=== PATIENT | female | born 1945 | race Caucasian/White ===

== ENCOUNTER → 2017-06-07 | Outpatient (CLI) | payer MEDICARE, OTHER ==
[~2017-06-07] VITALS: Ht 168.9 cm; Wt 92.2 kg
[~2017-06-07] MED LIST: AMLO10TA2 PO; ATOR40TA70 PO; CLOP75TA69 PO; DICL100T PO; DOCU-143 PO; LEVO125T6 PO; MULT-35 PO; PARO30TA3 PO; RANI75TA21 PO; SENN25TA PO
[2017-06-07 10:19] VITALS: BP 114/76
[2017-06-07 10:55] LABS: BILIRUBIN,URINE NEGATIVE (NEGATIVE); KETONES,URINE NEGATIVE (NEGATIVE); LEUKOCYTE ESTERASE ,URINE NEGATIVE (NEGATIVE); NITRITE,URINE NEGATIVE (NEGATIVE); PH,URINE 6 (5-9); PROTEIN,URINE NEGATIVE (NEGATIVE); UROBILINOGEN,URINE NORMAL (NORMAL)
[2017-06-07 10:56] LABS: BASOPHILS % (AUTO) 1 % (0-10); EOSINOPHILS # (AUTO) 0.3 10^3/uL (0.0-0.3); EOSINOPHILS % (AUTO) 5 % (0-10); LYMPHOCYTES # (AUTO) 1.2 X 10^3 (1.0-4.0); LYMPHOCYTES % (AUTO) 25 % (12-44); MEAN CORPUSCULAR HEMOGLOBIN 26 PG (25-34); MEAN CORPUSCULAR HGB CONC 31 G/DL (32-36); MEAN CORPUSCULAR VOLUME 83 FL (80-99); MEAN PLATELET VOLUME 8.6 FL (7.4-10.4); MONOCYTES # (AUTO) 0.4 X 10^3 (0.0-1.0); MONOCYTES % (AUTO) 8 % (0-12); NEUTROPHILS # (AUTO) 2.9 X 10^3 (1.8-7.8); NEUTROPHILS % (AUTO) 61 % (42-75); PLATELET COUNT 294 10^3/uL (130-400); RED BLOOD COUNT 4.61 10^6/uL (4.35-5.85); RED CELL DISTRIBUTION WIDTH 14.4 % (10.0-14.5); WHITE BLOOD COUNT 4.8 10^3/uL (4.3-11.0)
[2017-06-07 11:20] LABS: ANION GAP 6 MMOL/L (5-14); BLOOD UREA NITROGEN 12 MG/DL (7-18); BUN/CREATININE RATIO 16; CALCIUM 9.5 MG/DL (8.5-10.1); CARBON DIOXIDE 29 MMOL/L (21-32); CHLORIDE 102 MMOL/L (98-107); CREATININE SERUM 0.76 MG/DL (0.60-1.30); GFR ESTIMATED > 60; GLUCOSE 93 MG/DL (70-105); INR 0.9 (0.8-1.4); POTASSIUM 4.2 MMOL/L (3.6-5.0); PROTHROMBIN TIME PATIENT 11.9 SEC (12.2-14.7); SODIUM 137 MMOL/L (135-145)
--- NOTE | 2017-06-07 14:21 | Diagnostic Imaging Report ---
INDICATION: Preop for right hip replacement. PA and lateral chest obtained at 11:35 a.m. Heart and mediastinal silhouette are normal in appearance. The lungs are clear. There is no pneumothorax or pleural fluid. IMPRESSION: Negative chest. Dictated by: Dictated on workstation # [id number]
== END ==
LOC: PREOP 09:51
PROVIDERS: ATTEND Orthopaedic Surgery
DX: Z01.812 Encounter for preprocedural laboratory examination (principal); Z01.810 Encounter for preprocedural cardiovascular examination; M16.11 Unilateral primary osteoarthritis, right hip
CPT/HCPCS: 36415; 71020; 80048; 81000; 85025; 85610; 86850; 86900; 86901; 87081; 93005

== ENCOUNTER 2017-06-26 09:56 | Inpatient (IN) | payer MEDICARE, OTHER ==
[~2017-06-26] VITALS: Ht 168.9 cm; Wt 92.2 kg
[2017-06-26] MEDS ORDERED: GENTAMICIN 40 MG/ML 2 ML INJ SDV ONE (10:48)
[2017-06-26] MEDS ORDERED: NEO/POLY/BAC (NEOSPORIN) OINT 15 GM TUBE ONE (10:49)
[2017-06-26] MEDS ORDERED: SUCCINYLCHOLINE INJ 100 MG/5 ML SYR ONE (10:57)
[2017-06-26] MEDS ORDERED: proPOfol 200 MG/20 ML (DIPRIVAN) VIAL IV ONE (10:57)
[2017-06-26] MEDS ORDERED: LIDOCAINE PF 2% 5 ML (XYLOCAINE) VIAL ONE (10:57)
[2017-06-26] MEDS ORDERED: LACTATED RINGERS 1,000 ML IV ONE ×3 (10:57→15:18)
[2017-06-26] MEDS ORDERED: ONDANSETRON 4 MG/2 ML (SDV) Z0FRAN ONE ×2 (10:57→14:57)
[2017-06-26] MEDS ORDERED: ROCURONIUM 50 MG/5 ML (ZEMURON) VIAL IV ONE (10:57)
[2017-06-26] MEDS ORDERED: fentaNYL INJECTION 100 MCG/2 ML AMP ONE ×2 (10:58→13:10)
[2017-06-26] MEDS ORDERED: MIDAZOLAM 2 MG/2 ML (VERSED) VIAL ONE (10:59)
[2017-06-26] MEDS ORDERED: ceFAZolin 2 GM/NS 50 ML IV ONE (11:00)
[2017-06-26] MEDS ORDERED: ROPIVACAINE 5MG/ML 30ML VIAL ONE (11:03)
[2017-06-26] MEDS: LACTATED RINGERS 1,000 ML IV PRN ×3 (11:05→15:26)
[2017-06-26] MEDS ORDERED: SCOPOLAMINE 1.5 MG (TRANSDERM-SCOP) PATCH ONE (11:32)
--- NOTE | 2017-06-26 11:32 | Progress Note-Pre Operative ---
Pre-Operative Progress Note H&P Reviewed The H&P was reviewed, patient examined and no changes noted. Date Seen by Provider: Jun 26, 2017 Time Seen by Provider: 11:20 Date H&P Reviewed: Jun 26, 2017 Time H&P Reviewed: :20 Pre-Operative Diagnosis: Avascular necrosis right femoral head KATALINA HAY DO Jun 26, 2017 11:32 am
[2017-06-26] MEDS ORDERED: FAMOTIDINE 20MG/2ML IV (PEPCID) IV ONE (11:45)
[2017-06-26] MEDS ORDERED: ONDANSETRON 4 MG/2 ML (SDV) Z0FRAN IV ONE (11:45)
[2017-06-26] MEDS ORDERED: SCOPOLAMINE 1.5 MG (TRANSDERM-SCOP) PATCH TOP ONE (11:45)
[2017-06-26] MEDS ORDERED: KETOROLAC 15 MG/ML VIAL IVP PRN (12:00)
[2017-06-26] MEDS ORDERED: BISACODYL 10 MG SUPP (DULCOLAX) PR PRN (12:00)
[2017-06-26] MEDS ORDERED: PROMETHAZINE INJ 25 MG/ML (PHENERGAN) AMP IVP PRN (12:00)
[2017-06-26] MEDS ORDERED: morphine INJ 10 MG/ML 1ML (SYR OR VIAL) IVP PRN (12:00)
[2017-06-26] MEDS ORDERED: diphenhydrAMINE 50 MG/ML INJ (BENADRYL) IV PRN (12:00)
[2017-06-26] MEDS ORDERED: ceFAZolin 2 GM/50 ML NS 50 ML IV SCH (12:00)
[2017-06-26] MEDS ORDERED: TRANEXAMIC ACID 100 MG/ML 10 ML INJECTION IV ONE (12:19)
[2017-06-26] MEDS ORDERED: SEVOFLURANE (ULTANE) 15 ML INHAL SOLN ONE ×3 (13:28→14:24)
[2017-06-26] MEDS ORDERED: morphine INJ 10 MG/ML 1ML (SYR OR VIAL) ONE (13:58)
[2017-06-26] MEDS ORDERED: HYDROmorphone (DILAUDID) 2 MG/ML VIAL ONE (14:35)
--- NOTE | 2017-06-26 14:35 | Progress Note-Post Operative ---
Post-Operative Progess Note Surgeon (s)/Senior Tax Specialist (s) Surgeon KATALINA HAY DO Senior Tax Specialist: Ham Avalos FEDERAL APPELLATE LAW CLERK-Nguyen Pre-Operative Diagnosis Avascular necrosis right femoral head Post-Operative Diagnosis same Procedure & Operative Findings Date of Procedure 06/26/17 Procedure Performed/Findings Right Total Hip Arthroplasty Anesthesia Type General with femoral nerve block Estimated Blood Loss Estimated blood loss (mL): 500 ml Specimens/Packing Specimens Removed femoral head not sent for pathology eval Packing: none KATALINA HAY DO Jun 26, 2017 2:35 pm
[2017-06-26] MEDS: HYDROmorphone (DILAUDID) 2 MG/ML VIAL IVP PRN ×2 (14:44→14:54)
[2017-06-26] MEDS ORDERED: ONDANSETRON 4 MG/2 ML (SDV) Z0FRAN IVP PRN (15:00)
[2017-06-26 16:13] VITALS: BP 154/67
[2017-06-26] MEDS: BACLOFEN 10 MG (LIORESAL) TAB PO SCH ×2 (17:54→20:45)
[2017-06-26] MEDS: D5 1/2 NS 1000 ML IV SOLUTION 1,000 ML IV SCH (18:43)
[2017-06-26] MEDS: ceFAZolin 2 GM/50 ML NS 50 ML IV SCH (18:45)
[2017-06-26] MEDS: HYDROcodone/APAP 10 MG/325 MG (LORTAB) TAB PO PRN (18:48)
--- NOTE | 2017-06-26 19:58 | Diagnostic Imaging Report ---
Portable supine AP view of the pelvis. Indication: Right total hip replacement. Findings: There is a right hip replacement in position. The left hip demonstrates moderate degenerative change. No fracture is seen. Impression: Baseline post right hip replacement in good position. Dictated by: Dictated on workstation # [id number]
[2017-06-26 20:00] VITALS: BP 133/68
[2017-06-26 23:20] VITALS: BP 129/73
[2017-06-27] MEDS: HYDROcodone/APAP 10 MG/325 MG (LORTAB) TAB PO PRN ×3 (00:07→15:15)
[2017-06-27] MEDS: ceFAZolin 2 GM/50 ML NS 50 ML IV SCH (03:35)
[2017-06-27 04:43] VITALS: BP 131/74
[2017-06-27] MEDS: ONDANSETRON 4 MG/2 ML (SDV) Z0FRAN IVP PRN ×2 (04:55→12:34)
[2017-06-27 05:51] LABS: MEAN PLATELET VOLUME 9.2 FL (7.4-10.4); RED BLOOD COUNT 3.81 10^6/uL (4.35-5.85); RED CELL DISTRIBUTION WIDTH 14.2 % (10.0-14.5); WHITE BLOOD COUNT 9.6 10^3/uL (4.3-11.0)
[2017-06-27] MEDS: LEVOTHYROXINE 125 MCG (LEVOTHROID) TABLET PO SCH (05:57)
[2017-06-27 06:51] LABS: ANION GAP 10 MMOL/L (5-14); BLOOD UREA NITROGEN 8 MG/DL (7-18); BUN/CREATININE RATIO 11; CALCIUM 8.4 MG/DL (8.5-10.1); CARBON DIOXIDE 24 MMOL/L (21-32); CHLORIDE 100 MMOL/L (98-107); CREATININE SERUM 0.74 MG/DL (0.60-1.30); GFR ESTIMATED > 60; GLUCOSE 128 MG/DL (70-105); POTASSIUM 3.3 MMOL/L (3.6-5.0); SODIUM 134 MMOL/L (135-145)
--- NOTE | 2017-06-27 07:11 | OPERATIVE REPORT ---
DATE OF SERVICE: 06/26/2017 PREOPERATIVE DIAGNOSIS: Avascular necrosis, right femoral head. POSTOPERATIVE DIAGNOSIS: Avascular necrosis, right femoral head. PROCEDURE: Right total hip arthroplasty. SURGEON: Glenn Hay DO ICT HELP DESK TECHNICIAN: ETIENNE Quiroz medical lab assistant was utilized throughout the entire procedure for patient positioning, retraction of soft tissues, placement of metallic implants, wound closure, dressing application and patient transfer. ANESTHESIA: General with femoral nerve block. ESTIMATED BLOOD LOSS: 500 mL. INDICATIONS AND FINDINGS: The patient is a 72-year-old female seen with chief complaint of bilateral hip pain. X-rays revealed mild degenerative changes of the right hip and MRI evaluation of both the right and left hip revealed avascular necrosis of both hips with prominent avascular changes throughout the right femoral head with evidence of collapse. The left head demonstrated evidence of avascular necrosis of the superolateral quadrant with no evidence of collapse. The patient was taken to surgery where a total hip arthroplasty was performed on the right utilizing the Biomed Total Hip system with a 54 mm pressfit Regenerex Ringloc limited hole acetabular shell with a 36 mm head, size 23 liner, size +3 High Wall acetabular liner with a 36 mm -3 modular head component along with a pressfit 13 mm Taperloc porous coated pressfit stem. PROCEDURE IN DETAIL: The patient was seen by anesthesia preoperatively and a femoral nerve block was performed under ultrasound guidance without complication to decrease postop pain and decrease the amount of medication required during the surgical procedure. The patient was transferred to the operating room where a general inhalation anesthetic was administered. The patient was placed in a left lateral decubitus position and secured to the operating table with the peg board. A ChloraPrep and sterile drape of the right hip and right lower extremity was performed. A lateral longitudinal incision was then made, centered over the greater trochanter. The incision was deepened through the iliotibial band. A Hutchison approach to the right hip was performed with electrocautery used to divide the vastus lateralis fascia along with the gluteus medius and minimis tendon with the capsule reflected off the anterior aspect of the femoral head and neck. The acetabular labrum was excised after the femoral head was dislocated from the hip. An osteotomy was completed through the femoral neck. Retractors were placed. The acetabulum was reamed hemispherically to a diameter of 53 mm. A 54 mm cup was impacted into position. A provisional acetabular liner was inserted. Attention was directed to the proximal femur which was opened with a box chisel and a canal finder. The proximal femur was broached up to a 13 mm stem with the calcar ream. The hip was reduced, taken through a range of motion and found to be stable with a -3 mm head and neck length. The provisional broach was removed. The provisional acetabular liner was removed. The wound was irrigated extensively with normal saline solution. The High Wall polyethylene liner was inserted with the buildup over the anterior superior aspect of the acetabular shell. A 13 mm Taperloc stem was impacted into position and bone was grafted around the proximal aspect of the femur from that harvested from the femoral head. The head was then cold welded on the stem, the hip was reduced, taken through a range of motion with symmetric leg lengths noted and satisfactory balancing of the soft tissues. The vastus lateralis as well as the gluteus medium and minimus tendon were closed with multiple interrupted nzzhzh-am-shker sutures of #2 Ticron, reinforced with a running suture. The iliotibial band was closed with running suture of #1 Vicryl, the subcutaneous tissues were closed in multiple layers with 0 and 2-0 Vicryl suture. The skin was closed with stainless steel vignesh and Adaptic, Neosporin and bulky dressings placed about the right hip. The patient was awakened and was transported to postop recovery with anesthesia personnel present in satisfactory condition. Job ID: [id number] DocumentID: [id number] Dictated Date: 06/26/2017 15:35:01 Raw Sampler Date: 06/27/2017 07:11:23 Dictated By: GLENN HAY DO
[2017-06-27 07:50] VITALS: BP 156/79
[2017-06-27] MEDS: BACLOFEN 10 MG (LIORESAL) TAB PO SCH ×3 (08:35→21:12)
[2017-06-27] MEDS: FAMOTIDINE 20 MG (PEPCID) TABLET PO SCH (08:35)
[2017-06-27] MEDS: PARoxetine 10 MG (PAXIL) TAB PO SCH (08:35)
[2017-06-27] MEDS: amLODIPine 10 MG (NORVASC) TAB PO SCH (08:35)
[2017-06-27] MEDS: ENOXAPARIN 40 MG/0.4 ML (LOVENOX) SYR SC SCH (08:35)
[2017-06-27] MEDS: CLOPIDOGREL 75 MG (PLAVIX) TABLET PO SCH (08:35)
[2017-06-27] MEDS ORDERED: ASPIRIN E.C. 325 MG (ECOTRIN) TABLET PO SCH (09:00)
[2017-06-27] MEDS: D5 1/2 NS 1000 ML IV SOLUTION 1,000 ML IV SCH ×2 (09:23→22:38)
[2017-06-27] MEDS ORDERED: KCL 10 MEQ TAB (MICRO K) PO SCH (09:30)
--- NOTE | 2017-06-27 09:49 | Occupational Therapy Eval ---
OT Evaluation-General/PLF Medical Diagnosis Admission Date Jun 26, 2017 at 10:41 Medical Diagnosis: Right THR Onset Date: Jun 26, 2017 Therapy Diagnosis Therapy Diagnosis: Weakness, Decreased ADL skills Height/Weight Height (Feet): 5 Height (Inches): 6.50 Weight (Pounds): 203 Weight (Ounces): 6.0 Precautions Precautions/Isolations: Fall Prevention, Standard Precautions Safety Interventions: None Comments Hip precautions Weight Bear Status Weight Bearing Restriction: Weight Bearing/Tolerated Referral Physician: Dr. Valladares Referral Reason: Activity Tolerance, Self Care, Evaluation/Treatment, Strengthening/ROM Medical History Additional Medical History Avascular necrosis Reviewed History: Yes Social History Home: Single Level Current Living Status: Spouse Entry Into Home: Stairs With Railing Steps Into Home: 2 ADL-Prior Level of Function ADL PLOF Comments Pt. was independent with daily tasks previous to hip surgery. DME/Equipment: Bath Chair, Shower Drive Self: Yes OT Current Status Subjective Pt. reports 7/10 pain in right hip with movement. Has had pain medication. Appearance Pt. in bed with SCD's on and abductor pillow placed. Mental Status/Objective Patient Orientation: Person, Place, Time Current Glasses/Contacts: Yes Hearing Aids: No Dentures/Partials: Yes Hand Dominance: Right Upper Extremity ROM WFL bilateral UE Upper Extremity Coordination intact Upper Extremity Strength WFL ADL-Treatment Functional [place] Measure 0=Not Assessed/NA 4=Minimal Assistance 1=Total Assistance 5=Supervision or Setup 2=Maximal Assistance 6=Modified [place] 3=Moderate Assistance 7=Complete IndependenceIRFPAI Quality Coding Scale 6 Independent with activity with or without an assistive device 5 Patient requires set up or clean up by helper. Patient completes activity by themselves 4 Supervision or touching assist (CGA). [place] provide cues , steadying assist 3 The helper provides less than half the effort to complete the activity 2 The helper provides more than half the effort to complete the activity 1 Dependent. The helper does all the effort to complete an activity 7 Patient refused to complete or attempt activity 9 The patient did not perform the activity before the current illness or injury 88 Not attempted due to Medical conditions or safety concerns Bathing (FIM): 3 (Pt. able to wash bilateral UE and torso on BSC. Required min assist to stand and wash bryce area. Unable to reach feet due to hip precautions.) Toileting (FIM): 4 (Min assist for balance in stance so pt. can cleanse self.) Transfers (B, C, W/C) (FIM): 3 (Mod assist supine-sit. Min assist to stand and transfer to BSC.) Toilet/Commode Transfer (FIM): 3 Other Treatments Pt. is educated on hip precautions and OT role in care. Verbalizes understanding. Education OT Patient Education: Correct positioning, Modified ADL techniques, Progress toward Goal/Update tx plan, Purpose of tx/functional activities, Reviewed precautions, Rehab process, Transfer techniques Teaching Recipient: Patient Teaching Methods: Demonstration, Discussion Response to Teaching: Verbalize Understanding, Return Demonstration OT Short Term Goals Short Term Goals Time Frame: Jul 04, 2017 Eating(FIM): 6 Grooming(FIM): 5 Bathing(FIM): 4 Upper Body Dressing(FIM): 5 Lower Body Dressing(FIM): 5 Toileting(FIM): 5 Transfers (B,C,W/C) (FIM): 5 Toilet/Commode Transfer(FIM): 5 Additional Short Term Goals: 1-Demonstrate ADL Tasks, 2-Verbalize Understanding , 3-ImproveStrength/Lm 1=Demonstrate adherence to instructed precautions during ADL tasks. 2=Patient will verbalize/demonstrate understanding of assistive devices/ modifications for ADL. 3=Patient will improve strength/tolerance for activity to enable patient to perform ADL's. OT Regular Senior Care Provider Goals Long-Term Goals Time Frame: Jul 11, 2017 Eating (FIM): 6 Grooming(FIM): 6 Bathing(FIM): 6 Upper Body Dressing(FIM): 6 Lower Body Dressing(FIM): 6 Toileting(FIM): 6 Transfers (B,C,W/C) (FIM): 6 Toilet/Commode Transfer(FIM): 6 Shower Transfer(FIM): 5 Additional Goals: 1-Demonstrate ADL Tasks, 2-Verbalize Understanding, 3- ImproveStrength/Lm 1=Demonstrate adherence to instructed precautions during ADL tasks. 2=Patient will verbalize/demonstrate understanding of assistive devices/ modifications for ADL. 3=Patient will improve strength/tolerance for activity to enable patient to perform ADL's. OT Education/Plan Problem List/Assessment Assessment: Decreased Activ Tolerance, Dependent Transfers, Impaired I ADL's, Impaired Self-Care Skills Discharge Recommendations Plan/Recommendations: Continue POC Therapy D/C Recommendations: Home w/ Family Support, Occupational Therapy Home Care Comment Pt. has a 4 wheeled walker. May want a 2 wheeled walker for safety. Target Placement Home with spouse. Treatment Plan/Plan of Care Treatment,Training & Education: Yes Patient would benefit from OT for education, treatment and training to promote independence in ADL's, mobility, safety and/or upper extremity function for ADL' s. Plan of Care: ADL Retraining, UE Funct Exercise/Act Treatment Duration: Jul 11, 2017 Frequency: 5 times per week Estimated Hrs Per Day: .5 hour per day Agreement: Yes Rehab Potential: Good Time/GCodes Start Time: 08:40 Stop Time: 09:05 Total Time Billed (hr/min): 25 Billed Treatment Time 1, EVM x 10minutes, ADL x 15minutes JON CROWELL OT Jun 27, 2017 09:49
--- NOTE | 2017-06-27 09:56 | Consultation-Hospitalist ---
HPI History of Present Illness: HPI/Chief Complaint CC: Medical management following uncomplicated right total hip arthroplasty POD # 1 HPI: This is a 72-year-old white female clinic patient of Dr. Ortega in the [place], [place] who presents to the [facility] after an uncomplicated right total hip arthroplasty by Dr. Valladares. At this current time she is ready to work with physical therapy and denies any significant pain. She stopped smoking 8 years ago does not ordinarily wear oxygen but she does have supplement on at this current time at 2 L/m. She denies any bowel movement yet receiving MiraLAX per protocol and blood work was evaluated showing postop anemia of 9.8 and potassium of 3.8. 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[place], [place]) Alcohol Use: Denies Use Recreational Drug Use: No Smoking Status: Never a Smoker Former Smoker, Quit: Jun 07, 2005 Physical Abuse Screen: No Sexual Abuse: No Recent Foreign Travel: No Contact w/other who traveled: No Recent Hopitalizations: No Recent Infectious Disease Expo: No Seasonal Allergies Seasonal Allergies: Yes Surgeries Yes (RIGHT CAROTID STENT, LEFT CAROTIDECTOMY, MODIFIED NECK DISSECTION, CATARACT ) Vascular Surgery Respiratory Yes Cardiovascular Yes High Cholesterol, Hypertension Neurological No Reproductive System Sexually Transmitted Disease: No HIV/AIDS: No Genitourinary No Gastrointestinal Yes Gastroesophageal Reflux, Chronic Constipation, Diverticulosis, Polyps Musculoskeletal Yes Arthritis Endocrine History of Endocrine Disorders: Yes (DIET CONTROLLED) Endocrine Disorders: Diabetes, Non-Insulin dep HEENT History of HEENT Disorders: Yes (READING GLASSES, DENTURES, DENTAL IMPLANTS) 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) Skin Did You Recieve Any Treatments: Yes Type of Treatment: Chemotherapy, Radiation, Surgical Intervention Psychosocial History of Psychiatric Problem: Yes Behavioral Health Disorders: Anxiety, Depression Integumentary History of Skin or Integumenta: No Blood Transfusions History of Blood Disorders: No Adverse Reaction to a Blood Tr: No Family Medical History Family Hx: BREAST CANCER 19 MOTHER Cardiovascular disease 19 FATHER HODGKINS DISEASE G8 SISTER Hypertension 19 FATHER Myocardial infarction 19 FATHER Review of Systems Constitutional: see HPI EENTM: no symptoms reported Respiratory: no symptoms reported Cardiovascular: no symptoms reported Gastrointestinal: no symptoms reported Genitourinary: no symptoms reported Musculoskeletal: joint pain Skin: no symptoms reported Psychiatric/Neurological: No Symptoms Reported All Other Systems Reviewed Negative Unless Noted: Yes Physical Exam Physical Exam Vital Signs Vital Sign - Last 12Hours 06/26/17 06/26/17 14:00 16:13 Temp 97.3 Pulse 87 Resp 18 B/P (MAP) 154/67 Pulse Ox 94 O2 Delivery Nasal Cannula O2 Flow Rate 2.00 Capillary Refill : NONE General Appearance: No Apparent Distress, WD/WN, Chronically ill, Other ( wearing O2) Eyes: Bilateral Eye Normal Inspection, Bilateral Eye PERRL HEENT: PERRL/EOMI, Normal ENT Inspection, Pharynx Normal Neck: Full Range of Motion, Normal Inspection, Non Tender, Supple, Carotid Bruit Respiratory: Chest Non Tender, Lungs Clear, Normal Breath Sounds, No Accessory Muscle Use, No Respiratory Distress Cardiovascular: Regular Rate, Rhythm, No Edema, No Gallop, No JVD, No Murmur, Normal Peripheral Pulses Gastrointestinal: Normal Bowel Sounds, No Organomegaly, No Pulsatile Mass, Non Tender, Soft Back: Normal Inspection, No CVA Tenderness, No Vertebral Tenderness Extremity: Normal Capillary Refill, Normal Inspection, Normal Range of Motion, Non Tender, No Calf Tenderness, No Pedal Edema Neurologic/Psychiatric: Alert, Oriented x3, No Motor/Sensory Deficits, Normal Mood/Affect Skin: Normal Color, Warm/Dry Lymphatic: No Adenopathy Results Results/Procedures Lab Laboratory Tests 06/27/17 04:47 Assessment/Plan Admission Diagnosis Assessment: Status post uncomplicated right total hip arthroplasty by Dr. Valladares POD # 1 History of skin cancer with neck dissection in the past Peripheral vascular disease Asthma mild restriction on PFT Postop anemia due to blood loss from surgery Mild hyperkalemia Hyperlipidemia Depression Diverticulosis Chronic constipation Assessment and Plan Plan: Replace potassium Monitor labs especially hemoglobin Check iron level Maintain oxygen Maintain plan for nebulizer if O2 sat decreases Home medication including Plavix May need home O2 evaluation Clinical Quality Measures DVT/VTE Risk/Contraindication: Risk Factor Score Per Nursin RFS Level Per Nursing on Admit: 4+=Very High ROLDAN DOTSON DO Jun 27, 2017 09:56
--- NOTE | 2017-06-27 10:02 | Physical Therapy Evaluation ---
PT Evaluation-General Medical Diagnosis Admission Date Jun 26, 2017 at 10:41 Medical Diagnosis: right RONALD Onset Date: Jun 26, 2017 Therapy Diagnosis Therapy Diagnosis: impaired mobility, strength, endurance Height/Weight Height (Feet): 5 Height (Inches): 6.50 Weight (Pounds): 203 Weight (Ounces): 6.0 Precautions Precautions/Isolations: Fall Prevention, Standard Precautions Weight Bear Status Weight Bearing Restriction: Full Weight Bearing Location Restriction: R LE Referral Physician: Ham Avalos Reason for Referral: Evaluation/Treatment Medical History Pertinent Medical History: HTN Additional Medical History surg (right carotid stent, modified neck dissection, cataract), high cholesterol , Gastroesophageal Reflux, Chronic Constipation, Diverticulosis, Polyps, Chemotherapy, Radiation, Surgical Intervention, Anxiety, Depression, DM Current History avascular necrosis right femoral head Social History Home: Single Level Current Living Status: Spouse Entry Into Home: Stairs Without Railing PT Steps Into Home: 2 Prior/Core FIM Prior Level of Function Functional [place] Measure 0=Not Assessed/NA 4=Minimal Assistance 1=Total Assistance 5=Supervision or Setup 2=Maximal Assistance 6=Modified [place] 3=Moderate Assistance 7=Complete [place] Bed Mobility: 7 Transfers (B,C,W/C) (FIM): 7 Gait: 7 PT Evaluation-Current Subjective Patient in bed pre tx, agrees to PT, has pain of 8/10 in right hip. Patient in recliner with legs elevated post tx with nurse call, phone, tray, all needs met. Pt/Family Goals to be independent at home. Objective Patient Orientation: Person, Place, Situation Attachments: Oxygen, IV ROM/Strength ROM Lower Extremities NT due to recent surgery Strenght Lower Extremities NT due to recent surgery Neuromuscular (Tone, Coordination, Reflexes) WNL Sensory Vision: Functional Hearing: Functional Sensation Right Lower Extremit: Intact Sensation Left Lower Extremity: Intact Transfers Functional [place] Measure 0=Not Assessed/NA 4=Minimal Assistance 1=Total Assistance 5=Supervision or Setup 2=Maximal Assistance 6=Modified [place] 3=Moderate Assistance 7=Complete [place] Transfers (B, C, W/C) (FIM): 3 Scootin Rollin Supine to/from Sit: 3 Sit to/from Stand: 4 Patient requires mod assist for bed mobility and supine to sit, sit to stand min assist Gait Mode of Locomotion: Walk Anticipated Mode of Locomotion: Walk Gait (FIM): 1 Distance: 6' Gait Level of Assist: 4 Gait Persons Needed: 1 Gait Assistive Device: FWW Comments/Gait Description antalgic, slow, she states she can't put much weight through her right leg yet. Balance Sitting Static: Normal Sitting Dynamic: Normal Standing Static: Fair Standing Dynamic: Fair Treatment Seated right side lower extremity exercises x10 (AP, LAQ, GS) Assessment/Needs Patient has impaired mobility, strength,endurance post right RONALD Rehab Potential: Fair PT Insulation Board Back Tender Goals Insulation Board Back Tender Goals PT Long-Term Goals Time Frame: Jul 04, 2017 Transfers (B,C,W/C) (FIM): 4 Gait (FIM): 2 Distance: 50' Gait Level of Assist: 4 Gait Assistive Device: FWW PT Plan Problem List Problem List: Activity Tolerance, Functional Strength, Safety, Balance, Gait, Transfer, Bed Mobility, ROM Treatment/Plan Treatment Plan: Continue Plan of Care Treatment Plan: Bed Mobility, Education, Functional Activity Lm, Functional Strength, Gait, Therapeutic Exercise, Transfers Treatment Duration: Jul 04, 2017 Frequency: 11 times per week Estimated Hrs Per Day: .25 hour per day (15-30') Patient and/or Family Agrees t: Yes Safety Risks/Education Patient Education: Gait Training, Transfer Techniques, Reviewed Precautions, Correct Positioning, Safety Issues Teaching Recipient: Patient Teaching Methods: Demonstration, Discussion Response to Teaching: Reinforcement Needed Discharge Recommendations Plan Patient will perform bed mobility and transfer training, balance and endurance training, functional strengthening, stair training, gait training, and education , to improve functional mobility and independence at home. Therapy D/C Recommendations: Home w/ Family Support Time/GCodes Time In: 935 Time Out: 955 Total Billed Treatment Time: 20 Total Billed Treatment 1 visit NICO 20' LUIS BURGER PT Jun 27, 2017 10:02
--- NOTE | 2017-06-27 10:20 | Anesthesia-General Post-Op ---
General Patient Condition Mental Status/LOC: Same as Preop Cardiovascular: Satisfactory Nausea/Vomiting: Absent Respiratory: Satisfactory Pain: Controlled Complications: Absent Post Op Complications Complications None Follow Up Care/Instructions Patient Instructions None needed. Anesthesia/Patient Condition Patient Condition Patient is doing well, no complaints, stable vital signs, no apparent adverse anesthesia problems. Patient had good relief with FNB, no neurovascular complications. No complications reported per nursing. ALYX HERRERA CRNA Jun 27, 2017 10:20
[2017-06-27] MEDS: KCL 10 MEQ TAB (MICRO K) PO SCH ×2 (10:35→17:35)
[2017-06-27] MEDS: LACTULOSE SYRUP 10GM/15ML (ENULOSE) 30ML UDC PO SCH ×2 (10:35→21:12)
[2017-06-27] MEDS ORDERED: TR1C15 TP (10:49)
[2017-06-27] MEDS ORDERED: OMEP20TA7 PO (10:49)
[2017-06-27] MEDS ORDERED: FLUT1DIS26 INH (10:49)
[2017-06-27] MEDS ORDERED: TRAM50TA2 PO (10:49)
[2017-06-27] MEDS ORDERED: DICL75TA2 PO (10:49)
[2017-06-27] MEDS ORDERED: MAGIC MOUTHWASH MM (10:54)
--- NOTE | 2017-06-27 11:46 | Progress Note (SOAP) ---
Subjective Date Seen by Provider: Jun 27, 2017 Time Seen by Provider: 11:42 Subjective/Events-last exam Awake and alert Pain controlled Review of Systems General: Appetite Musculoskeletal: other Dressing dry right hip min swelling right thigh Objective Exam Vital Signs Date Time Temp Pulse Resp B/P (MAP) Pulse Ox O2 Delivery O2 Flow Rate FiO2 06/27/17 07:50 100.2 92 20 156/79 96 Nasal Cannula 2.00 06/27/17 07:25 96 Nasal Cannula 2.00 06/27/17 04:43 100.0 90 18 131/74 96 Nasal Cannula 2.00 06/26/17 23:20 98.6 96 20 129/73 96 Nasal Cannula 2.00 06/26/17 20:00 97.6 86 18 133/68 99 Nasal Cannula 2.00 06/26/17 16:13 97.3 87 18 154/67 94 Nasal Cannula 2.00 06/26/17 14:00 Nasal Cannula 2.00 Capillary Refill : NONE General Appearance: No Apparent Distress HEENT: Normal ENT Inspection Neck: Full Range of Motion Respiratory: Lungs Clear Cardiovascular: Regular Rate, Rhythm Peripheral Pulses: 2+ Dorsalis Pedis (R) Gastrointestinal: soft Extremity: Normal Capillary Refill Neurologic/Psychiatric: Alert Skin: Normal Color Results Lab Laboratory Tests 06/27/17 04:47: White Blood Count 9.6, Red Blood Count 3.81L, Hemoglobin 9.8L, Hematocrit 31L, Mean Corpuscular Volume 82, Mean Corpuscular Hemoglobin 26, Mean Corpuscular Hemoglobin Concent 31L, Red Cell Distribution Width 14.2, Platelet Count 278, Mean Platelet Volume 9.2, Sodium Level 134L, Potassium Level 3.3L, Chloride Level 100, Carbon Dioxide Level 24, Anion Gap 10, Blood Urea Nitrogen 8, Creatinine 0.74, Estimat Glomerular Filtration Rate > 60, BUN/Creatinine Ratio 11, Glucose Level 128H, Calcium Level 8.4L Procedures Status post Right total hip arthroplasty Assessment/Plan Assessment/Plan Assess & Plan/Chief Complaint Continuue current treatment Final Diagnosis Avascular necrosis right femoral head Clinical Quality Measures DVT/VTE Risk/Contraindication: Risk Factor Score Per Nursin RFS Level Per Nursing on Admit: 4+=Very High KATALINA HAY DO Jun 27, 2017 11:46 am
[2017-06-27 12:00] VITALS: BP 171/81
--- NOTE | 2017-06-27 15:58 | Physical Therapy Daily Note ---
PT Daily Note-Current Subjective Pt was laying in bed prior to tx and agreeable to PT. Pt reports 8/10 pain in R hip. Pt was sitting in chair with nurse call, phone, tray in reach, all needs met, post tx. Pain Numeric Pain Scale: 8 Location Body Site: Hip Pain Description: Ache Comment: 8 pain in right hip and thigh Mental Status Patient Orientation: Normal For Age Attachments: Oxygen 2 L oxygen Transfers Functional [place] Measure 0=Not Assessed/NA 4=Minimal Assistance 1=Total Assistance 5=Supervision or Setup 2=Maximal Assistance 6=Modified [place] 3=Moderate Assistance 7=Complete IndependenceIRFPAI Quality Coding Scale 6 Independent with activity with or without an assistive device 5 Patient requires set up or clean up by helper. Patient completes activity by themselves 4 Supervision or touching assist (CGA). [place] provide cues , steadying assist 3 The helper provides less than half the effort to complete the activity 2 The helper provides more than half the effort to complete the activity 1 Dependent. The helper does all the effort to complete an activity 7 Patient refused to complete or attempt activity 9 The patient did not perform the activity before the current illness or injury 88 Not attempted due to Medical conditions or safety concerns Transfers (B, C, W/C) (FIM): 3 Scootin Supine to/from Sit: 3 Sit to/from Stand: 4 Pt requires mod assist with supine<>sit. Pt requires CGA with sit<>stand and verbal cues for hand placement and safety. Weight Bearing Weight Bearing Restriction: Weight Bearing/Tolerated Location Restriction: L LE Gait Training Gait (FIM): 1 Distance (FIM): 1=up to 49 ft Distance: 5' Gait Level of Assist: 4 Gait Persons Needed: 1 Gait Assistive Device: FWW Pt ambulates slowly, lots of pain, requires CGA for safety. Exercises Seated Therapy Exercises: Ankle pumps, Long arc quads, Hip abd/add, Glut set Seated Reps: 20 Treatments Pt completes bed mobility, transfers, and gait training to increase functional mobility. Pt completes seated exercises to increase functional LE strength. Assessment Current Status: Good Progress Pt has impairments with bed mobility, transfers, and gait. Pt is highly motivated and willing to complete exercises and get up and into chair despite high levels of pain. PT Short Term Goals Short Term Goals Transfers (B,C,W/C) (FIM): 5 PT Strawhat Inspector And Packer Goals Assisted Goals PT Strawhat Inspector And Packer Goals Time Frame: Jul 04, 2017 Transfers (B,C,W/C) (FIM): 4 Gait (FIM): 2 Distance: 50' Gait Level of Assist: 4 Gait Assistive Device: FWW PT Plan Problem List Problem List: Activity Tolerance, Functional Strength, Safety, Balance, Gait, Transfer, Bed Mobility, ROM Treatment/Plan Treatment Plan: Continue Plan of Care Treatment Plan: Bed Mobility, Education, Functional Activity Lm, Functional Strength, Gait, Therapeutic Exercise, Transfers Treatment Duration: Jul 04, 2017 Frequency: 11 times per week Estimated Hrs Per Day: .25 hour per day (15-30') Patient and/or Family Agrees t: Yes Safety Risks/Education Patient Education: Gait Training, Transfer Techniques, Reviewed Precautions, Correct Positioning, Safety Issues Teaching Recipient: Patient Teaching Methods: Demonstration, Discussion Response to Teaching: Verbalize Understanding, Reinforcement Needed Time/GCodes Time In: 1530 Time Out: 1547 Total Billed Treatment Time: 17 Total Billed Treatment 1 visit GT 17 LUIS BURGER PT Jun 27, 2017 15:58
[2017-06-27 16:25] VITALS: BP 147/76
[2017-06-27 19:05] VITALS: BP 117/68
[2017-06-27] MEDS: SENNA W/DOCUSATE (SENOKOT S) TABLET PO SCH (21:12)
[2017-06-28 00:24] VITALS: BP 148/65
[2017-06-28 04:00] VITALS: BP 119/62
[2017-06-28] MEDS: HYDROcodone/APAP 10 MG/325 MG (LORTAB) TAB PO PRN (05:39)
[2017-06-28] MEDS: KCL 10 MEQ TAB (MICRO K) PO SCH (05:39)
[2017-06-28] MEDS: LEVOTHYROXINE 125 MCG (LEVOTHROID) TABLET PO SCH (05:39)
[2017-06-28 06:17] LABS: MEAN PLATELET VOLUME 8.6 FL (7.4-10.4); RED BLOOD COUNT 3.95 10^6/uL (4.35-5.85); RED CELL DISTRIBUTION WIDTH 14.1 % (10.0-14.5); WHITE BLOOD COUNT 11.7 10^3/uL (4.3-11.0)
[2017-06-28 06:48] LABS: ALANINE AMINOTRANSFERASE 11 U/L (0-55); ALBUMIN 3.5 GM/DL (3.2-4.5); ANION GAP 11 MMOL/L (5-14); ASPARTATE AMINO TRANSFERASE 30 U/L (5-34); BILIRUBIN,TOTAL 0.6 MG/DL (0.1-1.0); BLOOD UREA NITROGEN 6 MG/DL (7-18); BUN/CREATININE RATIO 8; CALCIUM 8.8 MG/DL (8.5-10.1); CARBON DIOXIDE 24 MMOL/L (21-32); CHLORIDE 100 MMOL/L (98-107); GFR ESTIMATED > 60; GLUCOSE 131 MG/DL (70-105); POTASSIUM 3.3 MMOL/L (3.6-5.0); SODIUM 135 MMOL/L (135-145)
[2017-06-28] MEDS ORDERED: PANTOPRAZOLE 20 MG TABLET (PROTONIX) PO SCH (07:00)
--- NOTE | 2017-06-28 07:05 | Progress Note (SOAP) ---
Subjective Date Seen by Provider: Jun 28, 2017 Time Seen by Provider: 07:02 Subjective/Events-last exam Only concern at this time is her decreased activity level and ability to do ADL' s. She is nervous about potentially going home today. Pain currently controlled. She has only ambulated about 15 feet with assist. Objective Exam Vital Signs Date Time Temp Pulse Resp B/P (MAP) Pulse Ox O2 Delivery O2 Flow Rate FiO2 06/28/17 04:00 97.9 97 20 119/62 96 Nasal Cannula 2.00 06/28/17 00:24 100.1 93 18 148/65 96 Nasal Cannula 2.00 06/27/17 19:05 99.2 100 20 117/68 97 Nasal Cannula 2.00 06/27/17 16:25 99.6 91 18 147/76 97 Nasal Cannula 2.00 06/27/17 15:46 99.9 06/27/17 15:15 99.9 06/27/17 12:00 99.9 93 20 171/81 92 Nasal Cannula 2.00 06/27/17 07:50 100.2 92 20 156/79 96 Nasal Cannula 2.00 06/27/17 07:25 96 Nasal Cannula 2.00 Capillary Refill : NONE General Appearance: No Apparent Distress Peripheral Pulses: 2+ Dorsalis Pedis (R), 2+ Left Dors-Pedis (L) Extremity: Normal Capillary Refill, Non Tender, No Calf Tenderness, No Pedal Edema Neurologic/Psychiatric: Alert, Oriented x3, No Motor/Sensory Deficits, Normal Mood/Affect Skin: Normal Color, Warm/Dry (dressing CDI right hip) Results Lab Laboratory Tests 06/28/17 06:08: White Blood Count 11.7H, Red Blood Count 3.95L, Hemoglobin 10.1L, Hematocrit 32L , Mean Corpuscular Volume 82, Mean Corpuscular Hemoglobin 26, Mean Corpuscular Hemoglobin Concent 31L, Red Cell Distribution Width 14.1, Platelet Count 283, Mean Platelet Volume 8.6, Sodium Level 135, Potassium Level 3.3L, Chloride Level 100, Carbon Dioxide Level 24, Anion Gap 11, Blood Urea Nitrogen 6L, Creatinine 0.80, Estimat Glomerular Filtration Rate > 60, BUN/Creatinine Ratio 8 , Glucose Level 131H, Calcium Level 8.8, Total Bilirubin 0.6, Aspartate Amino Transf (AST/SGOT) 30, Alanine Aminotransferase (ALT/SGPT) 11, Alkaline Phosphatase 79, Total Protein 7.0, Albumin 3.5 Assessment/Plan Assessment/Plan Assess & Plan/Chief Complaint A: s/p right RONALD, AVN right femoral head P: Continue current treatment, DC IV, increase effort with physical therapy or we need to discuss skilled or rehab. Clinical Quality Measures DVT/VTE Risk/Contraindication: Risk Factor Score Per Nursin RFS Level Per Nursing on Admit: 4+=Very High GIN PADILLA APRN Jun 28, 2017 7:05 am
[2017-06-28] MEDS: LACTULOSE SYRUP 10GM/15ML (ENULOSE) 30ML UDC PO SCH (07:57)
[2017-06-28 08:00] VITALS: BP 122/46
[2017-06-28] MEDS ORDERED: RT-ADVAIR HFA 115/21 MCG PER PUFF IH SCH (08:00)
[2017-06-28] MEDS: PARoxetine 10 MG (PAXIL) TAB PO SCH (08:54)
[2017-06-28] MEDS: FAMOTIDINE 20 MG (PEPCID) TABLET PO SCH (08:55)
[2017-06-28] MEDS: CLOPIDOGREL 75 MG (PLAVIX) TABLET PO SCH (08:55)
[2017-06-28] MEDS: SENNA W/DOCUSATE (SENOKOT S) TABLET PO SCH (08:55)
[2017-06-28] MEDS: amLODIPine 10 MG (NORVASC) TAB PO SCH (08:55)
[2017-06-28] MEDS: ENOXAPARIN 40 MG/0.4 ML (LOVENOX) SYR SC SCH (08:55)
[2017-06-28] MEDS ORDERED: NON-FORMULARY MEDICATION 1 EA EA (Fluticasone/Salmeterol (Advair 250-50 Diskus) 1 PUFF) INH SCH (09:00)
[2017-06-28] MEDS: BACLOFEN 10 MG (LIORESAL) TAB PO SCH (10:12)
--- NOTE | 2017-06-28 11:15 | Progress Note-Hospitalist ---
Standard Progress Note Progress Notes/Assess & Plan Date Seen 06/28/17 Time Seen by Provider: 11:11 Diagnosis Assessment: Status post uncomplicated right total hip arthroplasty by Dr. Valladares POD # 1 History of skin cancer with neck dissection in the past Peripheral vascular disease Asthma mild restriction on PFT Postop anemia due to blood loss from surgery Mild hyperkalemia Hyperlipidemia Depression Diverticulosis Chronic constipation Assess & Plan/Chief Complaint The patient is a 72-year-old white female who suffered a fall in her home and a subsequent right femoral neck fracture. This was repaired by Dr. Valladares on . She wishes to go home however admits that she has not been walking well to this point. It will be necessary for her to be able to perform her activities of daily living on return home. She is comforted by the idea that she could go to inpatient rehabilitation for at least a few days to build on her present state. Other than pain she has no particular complaint. Physical exam: She seems pleasantly confused. Lungs are clear to auscultation. CV is regular without murmur. Abdomen is soft without pain to palpation. Extremities show no pedal edema. Impression: Day number 2 postop right total hip arthroplasty. Plan: Transfer to [facility] Labs Laboratory Tests 06/27/17 04:47 06/28/17 06:08 REINA ALCALA MD Jun 28, 2017 11:15
[2017-06-28 11:59] VITALS: BP 122/46
== END 2017-06-28 11:55 | DRG 470 ==
LOC: 3RD 10:41 → SURG 10:42 → EDSTATUS 14:00 → 4TH 15:30
PROVIDERS: ADMIT Orthopaedic Surgery; ATTEND Orthopaedic Surgery
PROC: 0SR902A Replacement of Right Hip Joint with Metal on Polyethylene Synthetic Substitute, Uncemented, Open Approach (ICD-10-PCS; principal; 2017-06-26 11:47)
DX: Z87.891 Personal history of nicotine dependence; M87.9 Osteonecrosis, unspecified; K21.9 Gastro-esophageal reflux disease without esophagitis; E87.6 Hypokalemia; J44.9 Chronic obstructive pulmonary disease, unspecified; K59.09 Other constipation; F32.9 Major depressive disorder, single episode, unspecified; E11.9 Type 2 diabetes mellitus without complications; J45.909 Unspecified asthma, uncomplicated; D62 Acute posthemorrhagic anemia; E78.5 Hyperlipidemia, unspecified; I73.9 Peripheral vascular disease, unspecified; Z85.828 Personal history of other malignant neoplasm of skin; F41.9 Anxiety disorder, unspecified; I10 Essential (primary) hypertension
CPT/HCPCS: 36415; 72170; 80048; 80053; 82962; 85027

== ENCOUNTER 2017-06-28 10:53 | Inpatient (IN) | payer MEDICARE, OTHER ==
[~2017-06-28] VITALS: Ht 170.2 cm; Wt 90.5 kg
[~2017-06-28 10:53] MED LIST changes: +DICL75TA2 PO; +FLUT1DIS26 INH; +MAGIC MOUTHWASH MM; +OMEP20TA7 PO; +TR1C15 TP; +TRAM50TA2 PO
--- NOTE | 2017-06-28 13:32 | ST Cognitive Linguistic Eval ---
Speech Evaluation-General Medical Diagnosis Right Hip ORIF Onset Date: Jun 26, 2017 Therapy Diagnosis Therapy Diagnosis: Cognitive Linguistic Skills WNL Referral Referring Physician: Dr. Bienvenido So Reason for Referral: Evaluation/Treatment Cognitive Evaluation Medical History Pertinent Medical History: HTN Speech PLF-Current Status Prior Level of Function The patient denied prior challenges with speech, language, or cognition. Subjective The patient was recently admitted to [facility] following a right hip ORIF. The patient greeted the clinician appropriately and was agreeable to participation in the cognitive evaluation. The patient's was present at bedside throughout the assessment. Language Eval: Auditory Comprehends Simple Yes/No Ques: Functional Indent/Objects Multiple Craft: Functional Ident/Pics in Multiple Craft: Functional Follows 1-Step Commands: Functional Follows Complex Directions: Functional Follows General Conversations: Functional Language Eval: Verbal Language Completes Spontaneous Greeting: Functional Produces Auto, Serial Info: Functional Imitates Simple Words/Phrases: Functional Word Finding: Functional Requests Basic Needs: Functional States Basic Personal Info: Functional Expresses Complex Ideas: Functional Cognitive Patient Orientation The patient was oriented to month, day of week, date, year, and location. Objective Cognitive Domain Attention: Mild (The patient requires intermittent redirection to tasks throughout the session.) Memory: Mild Problem Solving: Functional Objective Impression The patient displayed cognitive linguistic skills grossly within normal limits and appropriate for completion of ADL's. Communication/Social Cognition Comprehension: 5 Expression: 6 Social Interaction: 5 Problem Solvin Memory: 5 Speech Patient Assess Expression of Ideas/Wants: Expression (4) Understanding [place] Content: Understands (4) Brief Interview-Mental Status: Yes Repetition of Three Words: Three (3) Temporal Orientation: Year: Correct (3) Temporal Orientation: Month: Accurate within 5 days(2) Temporal Orientation: Day: Correct (1) Recall : Wear to say "Sock": No, could not recall (0) Recall : Color: Yes, after cueing (1) Recall : Bed: Yes,after cueing (1) Speech-Plan Treatment Plan Speech Therapy Treatment Plan: Discontinue ST Evaluation, only. Frequency: Modified Program (IRF) Estimated Hrs Per Day: Other (Evaluation, only.) Rehab Potential: Good Safety Risks/Education Teaching Recipient: Patient Teaching Methods: Discussion Response to Teaching: Verbalize Understanding Education Topics Provided: Results, Recommendations, Plan of Care Time Speech Therapy Time In: 12:58 Speech Therapy Time Out: 13:18 Total Billed Time: 20 Billed Treatment Time 1, CARMITA SAWANT Jun 28, 2017 13:32
--- NOTE | 2017-06-28 13:46 | PM&R Post Admission Assessment ---
Post Admission Physician Asses The preadmission screen agrees with the post admission assessment that the patient is a good candidate for inpatient rehabilitation. The patient will have a comprehensive program of inpatient rehabilitation with a goal of maximizing level of functional independence prior to discharge home with spouse. The patient will have PT/OT ninety minutes per day, each discipline, five days a week for gait, strengthening, conditioning, balance, ADLs, any patient/family/caregiver training as necessary. Speech therapy to do cognitive assessment and treat as indicated. Rehabilitation nursing to assist with bowel, bladder, skin, wound care, medication administration, pain management. Elementary [employer] Science Teacher to assist with discharge planning, community reentry. SCD's for DVT prophylaxis.F/U with Hospitalist re postop fever of 102 degrees F/U with with Rest Therapy re postop resp insufficiency on by N/C as well as using IS. She appears to be well motivated to participate in three hours of therapy a day. She should be able to tolerate three hours of therapy a day from a medical and surgical standpoint. She should benefit from the three hours of therapy a day. She has a reasonable discharge plan, reasonable discharge rehabilitation goals and a supportive family. She has various comorbidities that need to be closely monitored with medications and treatments adjusted on a daily basis as needed. These include: asthma postop fever postop resp insuffiency Barriers to discharge for this patient who had been independent prior to this are for her to be modified independent to supervision for ADLs and mobility skills prior to discharge home with spouse, so as to lessen the burden of the caregivers. Risks for this patient include: 1. Fall 2. Fracture 3. DVT 4. Pulmonary embolism 5. Wound infection 6. Skin breakdown 7. Contractures 8. Poorly controlled pain 9. Urinary retention 10. UTI 11. Respiratory infection 12. Aspiration 13,worsening resp insufficinecy 14. Exacerbation of asthma 15. Worsening postop anemia Estimated Length of Stay: 14 days Prognosis: Rehab prognosis appears good for goal of discharge home with spouse modified independent to supervision for ADLs and mobility skills. RENE WELLS MD Jun 28, 2017 13:45
[2017-06-28] MEDS: ACETAMINOPHEN 325 MG TABLET/CAPLET (TYLENOL) PO PRN ×2 (14:18→14:19)
--- NOTE | 2017-06-28 14:40 | HISTORY AND PHYSICAL ---
DATE OF SERVICE: CHIEF COMPLAINT: Difficulty with walking. HISTORY OF PRESENT ILLNESS: The patient is a 72-year-old female who lives with her spouse in [place], [place] in a one-story home who had been independent prior to developing progressive pain in the right hip. 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 Valladares on 06/26 at [facility]. Postoperatively, the patient required some assistance for her ADLs and mobility skills and was referred to inpatient rehabilitation unit. At time of transfer it was noted that she had a temperature of 102 degrees. Hospitalist was informed, Tylenol provided. CXR reveal NAD U/A ordered The patient is receiving incentive spirometry, has no complaints of dysuria or frequency or urgency. Does have some nocturia. Has a nonproductive cough. PAST MEDICAL HISTORY: Skin cancer with neck dissection in the past, peripheral vascular disease, mild restrictive asthma, postop anemia, mild hypokalemia, hyperlipidemia, depression, diverticulosis, chronic constipation. PAST SURGICAL HISTORY: As per above. ALLERGIES: Codeine, Metformin, morphine. FAMILY HISTORY: Noncontributory. SOCIAL HISTORY: Essentially as per above. REVIEW OF SYSTEMS: A ten-point review of systems is significant for fever, right hip pain, cough. MEDICATIONS: Amlodipine 10 mg p.o. daily. Lipitor 40 mg p.o. daily. Plavix 75 mg p.o. daily. Voltaren 160 mg p.o. daily. Colace 200 mg p.o. b.i.d. Advair Diskus 1 puff daily. Levothyroxine 125 mcg p.o. daily. Multivitamins 1000 one tablet p.o. daily. Omeprazole 20 mg p.o. daily. Paxil 30 mg p.o. daily. Tramadol 50 mg p.o. q.i.d. p.r.n. moderate pain. Triamcinolone cream topically b.i.d. p.r.n. Magic mouthwash 10-15 mL p.o. at bedtime p.r.n. sores, throat pain. PHYSICAL EXAMINATION: GENERAL: Significant for a pleasant female sitting in a chair in no acute distress. VITAL SIGNS: Temp more than 102 degrees. Pulse is 80, respirations 20.Blood presuure as per graphic HEENT: Vision, speech and hearing are grossly intact. No oral lesion is noted. O2 by nasal cannula in place. NECK: Supple without mass. HEART: Regular rhythm. LUNGS: Clear anteriorly. ABDOMEN: Soft and nontender. Bowel sounds present. EXTREMITIES: No limb edema. No calf tenderness. Right hip has clean and dry island dressing over incision site. MUSCULOSKELETAL: This patient has functional active range of motion and strength both upper extremities and left lower extremity. Right lower extremity limited due to recent surgery with strength grossly 3/5. She is able to dorsi and plantar flex at the right ankle. NEUROLOGIC: Sensation grossly intact. Cognition grossly intact. IMPRESSION: 1. Ambulatory dysfunction secondary to avascular necrosis of the right hip status post right total hip replacement by Dr. Valladares at [facility]. 2. Postop fever. Chest x-ray done as per above and Tylenol ordered.U/A ordered and CBC in AM Hospitalist following. 3. Chronic constipation on meds. 4. Mild asthma on inhaler. 5. Postop anemia. 6. Mild hypokalemia, treated. 7. Hyperlipidemia on statin. 8. Depression, on medication. 9. Diverticulosis. 10. Peripheral vascular disease. 11. History of skin cancer with neck dissection in the past. 12. Postop respiratory insufficiency on O2 by nasal cannula to maintain sats 92% or better. PLAN: The patient will have a comprehensive program of inpatient rehabilitation with goal of maximizing the level of functional independence prior to discharge home with spouse. The patient will have PT/OT 90 minutes per day each discipline 5 days a week for 2 weeks for gait, strengthening, conditioning, balance, ADLs and any patient, caregiver training as necessary. ANY adaptive equipment and training as necessary. Speech therapy to do cognitive assessment and treat as indicated. Followup with respiratory therapy regarding O2 administration, monitoring O2 sats, assistance with inhalers and weaning from O2 as able. Rehabilitation Nursing to assist with bowel, bladder, skin, wound care, medication administration, pain management, O2 administration. Hay Stacker Operator to assist with discharge planning,community re-entry. Followup with Dr. Powell regarding postop fever. Therapy with fall precautions. ESTIMATED LENGTH OF STAY: Two weeks. PROGNOSIS: Prognosis appears good for goal of discharging home with spouse, modified independent to supervision for ADLs and mobility skills. DIET: Regular. CODE STATUS: Full code. Job ID: [id number] DocumentID: [id number] Dictated Date: 06/28/2017 13:39:34 Inside Steward/Stewardess Date: 06/28/2017 14:39:44 Dictated By: RENE WELLS MD MTDD
--- NOTE | 2017-06-28 14:47 | Diagnostic Imaging Report ---
PA and lateral views of the chest Indication: Fever and cough Findings: The lungs are clear. The heart size is normal. There is no effusion or pneumothorax The mediastinum and nani appear unremarkable. Impression: Unremarkable study. Dictated by: Dictated on workstation # [id number]
[2017-06-28] MEDS ORDERED: RT-ADVAIR HFA 115/21 MCG PER PUFF IH SCH (14:53)
[2017-06-28] MEDS ORDERED: PROMETHAZINE INJ 25 MG/ML (PHENERGAN) AMP IVP PRN (14:56)
[2017-06-28] MEDS ORDERED: morphine INJ 10 MG/ML 1ML (SYR OR VIAL) IVP PRN (14:56)
[2017-06-28] MEDS ORDERED: diphenhydrAMINE 50 MG/ML INJ (BENADRYL) IV PRN (14:56)
[2017-06-28] MEDS ORDERED: D5 1/2 NS 1000 ML IV SOLUTION 1,000 ML IV SCH ×2 (14:56→15:00)
[2017-06-28] MEDS ORDERED: CLOPIDOGREL 75 MG (PLAVIX) TABLET PO SCH (14:56)
[2017-06-28] MEDS ORDERED: ONDANSETRON 4 MG/2 ML (SDV) Z0FRAN IVP PRN (14:56)
[2017-06-28] MEDS ORDERED: amLODIPine 10 MG (NORVASC) TAB PO SCH (14:56)
[2017-06-28] MEDS ORDERED: LACTULOSE SYRUP 10GM/15ML (ENULOSE) 30ML UDC PO SCH (15:00)
[2017-06-28] MEDS ORDERED: PANTOPRAZOLE 20 MG TABLET (PROTONIX) PO SCH (15:00)
[2017-06-28] MEDS ORDERED: PARoxetine 10 MG (PAXIL) TAB PO SCH (15:00)
[2017-06-28] MEDS ORDERED: FAMOTIDINE 20 MG (PEPCID) TABLET PO SCH (15:00)
[2017-06-28] MEDS ORDERED: LEVOTHYROXINE 125 MCG (LEVOTHROID) TABLET PO SCH (15:00)
[2017-06-28] MEDS ORDERED: BISACODYL 10 MG SUPP (DULCOLAX) PR PRN (15:00)
[2017-06-28] MEDS ORDERED: ENOXAPARIN 40 MG/0.4 ML (LOVENOX) SYR SC SCH (15:00)
[2017-06-28] MEDS ORDERED: CATHETER FLUSH 10 ML SYR IV PRN (15:15)
--- NOTE | 2017-06-28 15:33 | Physical Therapy Evaluation ---
PT Evaluation-General Medical Diagnosis Admission Date Jun 28, 2017 at 12:00 Medical Diagnosis: AVN right hip; s/p THR Onset Date: Jun 26, 2017 Therapy Diagnosis Therapy Diagnosis: weakness; abn gait Height/Weight Height (Feet): 5 Height (Inches): 7.00 Weight (Pounds): 199 Weight (Ounces): 9.0 Precautions Precautions/Isolations: Fall Prevention, Standard Precautions right hip precautions Weight Bear Status Weight Bearing Restriction: Weight Bearing/Tolerated Referral Physician: Judah Reason for Referral: Evaluation/Treatment Medical History Pertinent Medical History: HTN Additional Medical History AVN B hips Current History s/p elective THR on the right due to AVN (avascular necrosis) Reviewed History: Yes Social History Home: Single Level Current Living Status: Spouse Entry Into Home: Stairs Without Railing (has a post to hold onto) PT Steps Into Home: 2 Prior/Core FIM Prior Level of Function Functional [place] Measure 0=Not Assessed/NA 4=Minimal Assistance 1=Total Assistance 5=Supervision or Setup 2=Maximal Assistance 6=Modified [place] 3=Moderate Assistance 7=Complete [place] Bed Mobility: 7 Transfers (B,C,W/C) (FIM): 7 Gait: 7 community ambulator and still drives. PT Evaluation-Current Subjective Pt agreeable to PT. Reports she is feeling better today but not sure she is ready to manage at home at this time. Reports she only has pain in the right hip with weight bearing. Pain Numeric Pain Scale: 5-Moderate Pain Location: Right Location Body Site: Hip Pain Description: Ache Comment: during weight bearing activity. Pt/Family Goals Home with spouse at a mod indep level. Objective Patient Orientation: Person, Place, Time, Situation Problem Solving: Good ROM/Strength ROM Lower Extremities WNL; right hip limited by THR precautions. Strenght Lower Extremities Left LE strength is grossly 5/5; right LE strength is grossly 3/5 throughout. Integumentary/Posture Integumentary Refer to nursing notes. Bowel Incontinence: No Bladder Incontinence: No Posture Normal and symmetrical Neuromuscular (Tone, Coordination, Reflexes) WNL and intact Sensory Vision: Functional Hearing: Functional Hand Dominance: Right Sensation Right Lower Extremit: Intact Sensation Left Lower Extremity: Intact Transfers Functional [place] Measure 0=Not Assessed/NA 4=Minimal Assistance 1=Total Assistance 5=Supervision or Setup 2=Maximal Assistance 6=Modified [place] 3=Moderate Assistance 7=Complete IndependenceIRFPAI Quality Coding Scale 6 Independent with activity with or without an assistive device 5 Patient requires set up or clean up by helper. Patient completes activity by themselves 4 Supervision or touching assist (CGA). [place] provide cues , steadying assist 3 The helper provides less than half the effort to complete the activity 2 The helper provides more than half the effort to complete the activity 1 Dependent. The helper does all the effort to complete an activity 7 Patient refused to complete or attempt activity 9 The patient did not perform the activity before the current illness or injury 88 Not attempted due to Medical conditions or safety concerns Transfers (B, C, W/C) (FIM): 3 Roll Left to Right (QC): 4 Supine to/from Sit: 3 Sit to/from Stand: 4 Sit to Lying (QC): 3 (asssit with both legs into bed; skilled reminders for hip precautions) Lying to Sitting/Side of Bed(Q: 4 (light assist to lift her trunk) Sit to Stand (QC): 4 (Min assist and skilled cues for hand placement and sequencing. ) Chair/[id number] Xfer(QC): 4 Car Transfer (QC): 7 (pt declined at this time) Skilled cues for all transfers for safety and sequencing and reminders for THR precautions Gait Does the Patient Walk?: Yes Mode of Locomotion: Walk Anticipated Mode of Locomotion: Walk Gait (FIM): 2 Distance (FIM): 4=095-34 ft Walk 10 feet (QC): 4 Walk 50 ft with 2 Turns(QC): 4 Walk 150 ft (QC): 88 (unable to ambulate 150 ft at this time. ) Walking 10ft/uneven surface-QC: 3 Gait Assistive Device: FWW Comments/Gait Description skilled cues for posture and step length; tends to push walker too far ahead and lean forward at the hips. Wheelchair Training Does the Pt Use a Wheelchair?: No Stairs Stairs (FIM): 1 #of Steps: 1 Level of Assist: 3 1 Step (curb) (QC): 3 4 Steps (QC): 88 Assistive Device: Walker 12 Steps (QC): 88 Balance Sitting Static: Good Sitting Dynamic: Good Standing Static: Fair Standing Dynamic: Fair Picking up an Object (QC): 88 (hip precautions; unble to bend over) Treatment Worked on sit to from supine with maintenance of hip precautions; also practiced sit to from stand transfers with correct sequencing and hand placement. Assessment/Needs Post elective THR due to AVN> She presents with decreased functional mobility and strength and would benefit from skilled PT for functional strength gait and transfers. She will benefit from skilled training in regards to hip precautions and correct sequencing and task segmentation for safe transfers and bed mobility. Rehab Potential: Good PT Short Term Goals Short Term Goals Time Frame: Jul 05, 2017 Transfers (B,C,W/C) (FIM): 5 Gait (FIM): 5 PT Production Line Manager Goals Production Line Manager Goals PT Correction Goals Time Frame: Jul 13, 2017 Transfers (B,C,W/C) (FIM): 6 Sit to Lying (QC): 6 Lying-Sitting on Side/Bed(QC): 6 Sit to Stand (QC): 6 Roll Left to Right (QC): 6 Chair/Iuk-en-Axene Xfer(QC): 6 Car Transfer (QC): 5 Does the Patient Walk: Yes Gait (FIM): 6 Gait distance (FIM): 3=150 ft Walk 10 feet (QC): 6 Walk 10ft-Uneven Surface(QC): 6 Walk 50ft with 2 Turns (QC): 6 Walk 150 ft (QC): 6 Gait Assistive Device: FWW Does the Pt use WC or Scooter?: No Stairs (FIM): 5 (household) # of Steps: 8 1 Step (curb) (QC): 6 4 Steps (QC): 6 12 Steps (QC): 88 Picking up an Object (QC): 88 (hip precautions) PT Plan Problem List Problem List: Activity Tolerance, Functional Strength, Safety, Balance, Gait, Transfer, Bed Mobility Treatment/Plan Treatment Plan: Continue Plan of Care Treatment Plan: Bed Mobility, Education, Functional Activity Lm, Functional Strength, Group Therapy, Gait, Safety, Therapeutic Exercise, Transfers Treatment Duration: Jul 13, 2017 Frequency: At least 5 of 7 days/Wk (IRF) Estimated Hrs Per Day: 1.5 hours per day Patient and/or Family Agrees t: Yes Safety Risks/Education Patient Education: Transfer Techniques, Safety Issues Teaching Recipient: Patient Teaching Methods: Demonstration, Discussion Response to Teaching: Reinforcement Needed Discharge Recommendations Therapy D/C Recommendations: Physical Therapy Home Care Time/GCodes Time In: 1150 Time Out: 1235 Total Billed Treatment Time: 45 Total Billed Treatment visit EVM 15 FA 15 GT 15 DANIEL GILLESPIE PT Jun 28, 2017 15:33
--- NOTE | 2017-06-28 15:37 | Physical Therapy Daily Note ---
PT Daily Note-Current Subjective Agreeable to PT. Has a fever in which she is receiving Tylenol. Mental Status Patient Orientation: Person, Place, Time, Situation Transfers Functional [place] Measure 0=Not Assessed/NA 4=Minimal Assistance 1=Total Assistance 5=Supervision or Setup 2=Maximal Assistance 6=Modified [place] 3=Moderate Assistance 7=Complete IndependenceIRFPAI Quality Coding Scale 6 Independent with activity with or without an assistive device 5 Patient requires set up or clean up by helper. Patient completes activity by themselves 4 Supervision or touching assist (CGA). [place] provide cues , steadying assist 3 The helper provides less than half the effort to complete the activity 2 The helper provides more than half the effort to complete the activity 1 Dependent. The helper does all the effort to complete an activity 7 Patient refused to complete or attempt activity 9 The patient did not perform the activity before the current illness or injury 88 Not attempted due to Medical conditions or safety concerns Treatments Co treat with OT for this visit. OT addressed ADL instruction and use of AD whilst PT addressed functional transfer, standing static and dynamic balance for transfers and prior to use of AD. Worked togehter to educate pt on the goals of ARU and pat participated in activities that required transfers and balance to practice use of ADL equipment. In addition, pt ambulated x 125 ft x 2 with [facility] CGA and skilled cues for gait pattern and safety. Pt benefitted from co treat for optimal rehab and rounded information provided and care. Pt verbalized understanding of all. Discussed and reviewed hip precautions and how they impact functional transfers and mobility paired with ADL/self care. Assessment Current Status: Good Progress Cooperative and very motivated. PT Plan Problem List Problem List: Activity Tolerance, Functional Strength, Safety Treatment/Plan Treatment Plan: Continue Plan of Care Treatment Plan: Bed Mobility, Education, Functional Activity Lm, Functional Strength, Group Therapy, Safety, Therapeutic Exercise, Transfers Treatment Duration: Jul 13, 2017 Frequency: At least 5 of 7 days/Wk (IRF) Estimated Hrs Per Day: 1.5 hours per day Patient and/or Family Agrees t: Yes Safety Risks/Education Patient Education: Gait Training, Transfer Techniques, Reviewed Precautions, Safety Issues Teaching Recipient: Patient Teaching Methods: Demonstration, Discussion Response to Teaching: Reinforcement Needed Discharge Recommendations Plan Progress functional mobility. Time/GCodes Time In: 1415 Time Out: 1502 Total Billed Treatment Time: 47 (co treat with OT) Total Billed Treatment visit FA 30 GT 17 DANIEL GILLESPIE PT Jun 28, 2017 15:37
--- NOTE | 2017-06-28 16:56 | Occupational Therapy Eval ---
OT Evaluation-General/PLF Medical Diagnosis Admission Date Jun 28, 2017 at 12:00 Medical Diagnosis: AVN right hip; s/p THR Onset Date: Jun 26, 2017 Therapy Diagnosis Therapy Diagnosis: Weakness Height/Weight Height (Feet): 5 Height (Inches): 7.00 Weight (Pounds): 199 Weight (Ounces): 9.0 Precautions Precautions/Isolations: Fall Prevention, Standard Precautions Weight Bear Status Weight Bearing Restriction: Weight Bearing/Tolerated Referral Physician: Judah Referral Reason: Activity Tolerance, Evaluation/Treatment, Strengthening/ROM Medical History Pertinent Medical History: HTN Additional Medical History Avascular necrosis right hip Reviewed History: Yes Social History Home: Single Level Current Living Status: Spouse Entry Into Home: Stairs Without Railing (has a post to hold onto) Steps Into Home: 2 Pt. has a post right outside of entrance to hold onto. ADL-Prior Level of Function ADL PLOF Comments Pt. was independent with all basic skills DME/Equipment: Bath Chair, Grab Bars, Shower Pt. has a 4 wheeled walker that she does not use. OT Current Status Subjective Pt. running 103 degree fever. Nursing gives tylenol. Does not report pain level. Appearance Pt. in bed. Agrees to work with therapy. Mental Status/Objective Patient Orientation: Person, Place Current Dentures/Partials: Yes Hand Dominance: Right Upper Extremity ROM WFL Upper Extremity Strength WFL ADL-Treatment Functional [place] Measure 0=Not Assessed/NA 4=Minimal Assistance 1=Total Assistance 5=Supervision or Setup 2=Maximal Assistance 6=Modified [place] 3=Moderate Assistance 7=Complete IndependenceIRFPAI Quality Coding Scale 6 Independent with activity with or without an assistive device 5 Patient requires set up or clean up by helper. Patient completes activity by themselves 4 Supervision or touching assist (CGA). [place] provide cues , steadying assist 3 The helper provides less than half the effort to complete the activity 2 The helper provides more than half the effort to complete the activity 1 Dependent. The helper does all the effort to complete an activity 7 Patient refused to complete or attempt activity 9 The patient did not perform the activity before the current illness or injury 88 Not attempted due to Medical conditions or safety concerns Lower Body Dressing (FIM): 4 (Pt. issued and practiced AE for LE dressing. Demonstrated ability to doff/don socks with AE and increased time needed.) Lower Body Dressing (QC): 4 On/Off Footwear (QC): 4 Transfers (B, C, W/C) (FIM): 3 (Pt. required mod assist for supine-sit and min for sit-stand. Mod assist for sit-supine.) OT/PT co-treated due to pt's fatigue level, and running fever. Pt. already spongebathed up on 4th floor. Agreed to practice dressing skills. PT provided skilled instruction in walker usage while OT provided instruction on AE and ADL tasks. Both provided instruction regarding rehab goals and individual goals. Please see PT note for distance walked. Education OT Patient Education: Exercise program, Modified ADL techniques, Progress toward Goal/Update tx plan, Purpose of tx/functional activities, Reviewed precautions, Rehab process, Transfer techniques, Use of adapted equipment Teaching Recipient: Patient, Significant Other Teaching Methods: Demonstration, Discussion Response to Teaching: Verbalize Understanding, Return Demonstration OT Short Term Goals Short Term Goals Time Frame: Jul 05, 2017 Eating(FIM): 5 Grooming(FIM): 5 Bathing(FIM): 5 Upper Body Dressing(FIM): 5 Lower Body Dressing(FIM): 5 Toileting(FIM): 5 Transfers (B,C,W/C) (FIM): 5 Toilet/Commode Transfer(FIM): 5 Shower Transfer(FIM): 4 Additional Short Term Goals: 1-Demonstrate ADL Tasks, 2-Verbalize Understanding , 3-ImproveStrength/Lm 1=Demonstrate adherence to instructed precautions during ADL tasks. 2=Patient will verbalize/demonstrate understanding of assistive devices/ modifications for ADL. 3=Patient will improve strength/tolerance for activity to enable patient to perform ADL's. OT Mcfp Goals Mcfp Goals Time Frame: Jul 12, 2017 Eating (FIM): 6 Eating (QC): 6 Groomin Oral Hygiene (QC): 6 Bathing(FIM): 5 Shower/Bathe Self (QC): 5 Upper Body Dressing(FIM): 6 Upper Body Dressing (QC): 6 Lower Body Dressing(FIM): 6 Lower Body Dressing (QC): 6 On/Off Footwear (QC): 6 Toileting(FIM): 6 Toileting Hygiene (QC): 6 Transfers (B,C,W/C) (FIM): 6 Toilet/Commode Transfer(FIM): 6 Toilet/Commode Transfer (QC): 6 Shower Transfer(FIM): 5 Additional Goals: 1-Demonstrate ADL Tasks, 2-Verbalize Understanding, 3- ImproveStrength/Lm 1=Demonstrate adherence to instructed precautions during ADL tasks. 2=Patient will verbalize/demonstrate understanding of assistive devices/ modifications for ADL. 3=Patient will improve strength/tolerance for activity to enable patient to perform ADL's. OT Education/Plan Problem List/Assessment Assessment: Decreased Activ Tolerance, Dependent Transfers, Impaired Bed Mobility, Impaired Funct Balance, Impaired I ADL's, Impaired Self-Care Skills Discharge Recommendations Plan/Recommendations: Continue POC Therapy D/C Recommendations: Home w/ Family Support, Occupational Therapy Home Care Equpiment Recommendations-D/C: Hip Kit Patient/Family Goals To return home. Treatment Plan/Plan of Care Treatment,Training & Education: Yes Patient would benefit from OT for education, treatment and training to promote independence in ADL's, mobility, safety and/or upper extremity function for ADL' s. Plan of Care: ADL Retraining, Caregiver Training, Functional Mobility, Group Exercise/Act as Ind, UE Funct Exercise/Act Treatment Duration: Jul 12, 2017 Frequency: At least 5 of 7 days/Wk (IRF) Estimated Hrs Per Day: 1.5 hours per day Agreement: Yes Rehab Potential: Good Time/GCodes Start Time: 14:00 Stop Time: 15:15 Total Time Billed (hr/min): 75 Billed Treatment Time 1, EVM x 15minutes FA x 30 minutes co-treat ADL x 30minutes co-treat Please see above note for designated goals. JON CROWELL OT Jun 28, 2017 16:56
[2017-06-28 17:24] VITALS: BP 114/65
[2017-06-28] MEDS: KCL 10 MEQ TAB (MICRO K) PO SCH (17:31)
[2017-06-28] MEDS: HYDROcodone/APAP 10 MG/325 MG (LORTAB) TAB PO PRN (17:43)
[2017-06-28 19:15] LABS: BILIRUBIN,URINE NEGATIVE (NEGATIVE); KETONES,URINE 1+ (NEGATIVE); LEUKOCYTE ESTERASE ,URINE NEGATIVE (NEGATIVE); NITRITE,URINE NEGATIVE (NEGATIVE); PH,URINE 6.5 (5-9); PROTEIN,URINE NEGATIVE (NEGATIVE); UROBILINOGEN,URINE NORMAL (NORMAL)
[2017-06-28 19:23] LABS: SQUAMOUS EPITHELIAL CELL,UR RARE /HPF
[2017-06-28] MEDS: BACLOFEN 10 MG (LIORESAL) TAB PO SCH (20:41)
[2017-06-28] MEDS: SENNA W/DOCUSATE (SENOKOT S) TABLET PO SCH (20:41)
[2017-06-29] MEDS: ACETAMINOPHEN 325 MG TABLET/CAPLET (TYLENOL) PO PRN ×2 (02:46→23:43)
[2017-06-29 05:39] LABS: BASOPHILS % (AUTO) 0 % (0-10); EOSINOPHILS % (AUTO) 0 % (0-10); LYMPHOCYTES # (AUTO) 1.4 X 10^3 (1.0-4.0); LYMPHOCYTES % (AUTO) 9 % (12-44); MEAN CORPUSCULAR HEMOGLOBIN 26 PG (25-34); MEAN CORPUSCULAR HGB CONC 31 G/DL (32-36); MEAN CORPUSCULAR VOLUME 82 FL (80-99); MEAN PLATELET VOLUME 8.7 FL (7.4-10.4); MONOCYTES # (AUTO) 0.7 X 10^3 (0.0-1.0); MONOCYTES % (AUTO) 5 % (0-12); NEUTROPHILS # (AUTO) 12.6 X 10^3 (1.8-7.8); NEUTROPHILS % (AUTO) 86 % (42-75); PLATELET COUNT 262 10^3/uL (130-400); RED BLOOD COUNT 3.37 10^6/uL (4.35-5.85); WHITE BLOOD COUNT 14.7 10^3/uL (4.3-11.0)
[2017-06-29 05:52] VITALS: BP 117/61
[2017-06-29] MEDS: KCL 10 MEQ TAB (MICRO K) PO SCH ×2 (06:24→15:56)
[2017-06-29] MEDS: HYDROcodone/APAP 10 MG/325 MG (LORTAB) TAB PO PRN ×2 (06:25→15:53)
[2017-06-29] MEDS: BACLOFEN 10 MG (LIORESAL) TAB PO SCH ×3 (07:58→22:52)
[2017-06-29] MEDS: SENNA W/DOCUSATE (SENOKOT S) TABLET PO SCH ×2 (07:58→22:51)
--- NOTE | 2017-06-29 09:56 | Occupational Ther Daily Note ---
OT Current Status-Daily Note Subjective Pt alert, sitting in chair. Agrees to therapy and shower. No pain reported. Mental Status/Objective Patient Orientation: Person, Place, Time, Situation Functional [place] Measure 0=Not Assessed/NA 4=Minimal Assistance 1=Total Assistance 5=Supervision or Setup 2=Maximal Assistance 6=Modified [place] 3=Moderate Assistance 7=Complete [place] Attachments: Oxygen ADL-Treatment Functional [place] Measure 0=Not Assessed/NA 4=Minimal Assistance 1=Total Assistance 5=Supervision or Setup 2=Maximal Assistance 6=Modified [place] 3=Moderate Assistance 7=Complete IndependenceIRFPAI Quality Coding Scale 6 Independent with activity with or without an assistive device 5 Patient requires set up or clean up by helper. Patient completes activity by themselves 4 Supervision or touching assist (CGA). [place] provide cues , steadying assist 3 The helper provides less than half the effort to complete the activity 2 The helper provides more than half the effort to complete the activity 1 Dependent. The helper does all the effort to complete an activity 7 Patient refused to complete or attempt activity 9 The patient did not perform the activity before the current illness or injury 88 Not attempted due to Medical conditions or safety concerns Bathing (FIM): 4 (After set up, pt able to complete bathing using AE with supervision and verbal cues to adhere to hip precautions. CGA when standing to wash backside. Using LH sponge, shower bench, grab bars, and handheld shower. Assistance required to dry toes. ) Bathing Location: L Arm, R Arm, L Upper Leg, R Upper Leg, Chest, Abdomen, Buttocks, Perineal Area Shower/Bathe Self (QC): 4 Upper Body (FIM): 5 (After set up, pt able to down gown while seated. ) Upper Body Dressing (QC): 5 (After set up, pt able to don gown while seated. ) Lower Body Dressing (FIM): 4 (Pt uses sock aid to don socks, assistance required to get aid over R heel. ) Lower Body Dressing (QC): 3 (Pt uses sock aid to don socks, assistance required to get aid over R heel. ) On/Off Footwear (QC): 3 (Pt uses sock aid to don socks, assistance required to get aid over R heel. ) Toileting (FIM): 5 (Pt able to complete hygiene while seated and manipulation of clothing with supervision. ) Toileting Hygiene (QC): 4 (Pt able to complete hygiene while seated and manipulation of clothing with supervision. ) Transfers (B, C, W/C) (FIM): 4 (Min A for sit to stand and ambulation with walker.) Toilet/Commode Transfer (FIM): 4 (CGA when ambulating to toilet. Using FWW, grab bars, and BSC over toilet. ) Toilet Transfer (QC): 4 (CGA when ambulating to toilet. Using FWW, grab bars, and BSC over toilet. ) Shower Transfer(FIM): 4 (CGA when transferring into shower using FWW, grab bars , and shower bench. ) Other Treatment Pt educated on 5 theraband exercises to increase UE strength and activity tolerance for daily functional tasks. Demonstration provided and pt verbalized understanding. Red theraband left in pt's room. Education OT Patient Education: Exercise program Teaching Recipient: Patient Teaching Methods: Demonstration, Discussion Response to Teaching: Verbalize Understanding OT Short Term Goals Short Term Goals Time Frame: Jul 05, 2017 Eating(FIM): 5 Grooming(FIM): 5 Bathing(FIM): 5 Upper Body Dressing(FIM): 5 Lower Body Dressing(FIM): 5 Toileting(FIM): 5 Transfers (B,C,W/C) (FIM): 5 Toilet/Commode Transfer(FIM): 5 Shower Transfer(FIM): 4 Additional Short Term Goals: 1-Demonstrate ADL Tasks, 2-Verbalize Understanding , 3-ImproveStrength/Lm 1=Demonstrate adherence to instructed precautions during ADL tasks. 2=Patient will verbalize/demonstrate understanding of assistive devices/ modifications for ADL. 3=Patient will improve strength/tolerance for activity to enable patient to perform ADL's. OT Prison Goals Prison Goals Time Frame: Jul 12, 2017 Eating (FIM): 6 Eating (QC): 6 Groomin Oral Hygiene (QC): 6 Bathing(FIM): 5 Shower/Bathe Self (QC): 5 Upper Body Dressing(FIM): 6 Upper Body Dressing (QC): 6 Lower Body Dressing(FIM): 6 Lower Body Dressing (QC): 6 On/Off Footwear (QC): 6 Toileting(FIM): 6 Toileting Hygiene (QC): 6 Transfers (B,C,W/C) (FIM): 6 Toilet/Commode Transfer(FIM): 6 Toilet/Commode Transfer (QC): 6 Shower Transfer(FIM): 5 Additional Goals: 1-Demonstrate ADL Tasks, 2-Verbalize Understanding, 3- ImproveStrength/Lm 1=Demonstrate adherence to instructed precautions during ADL tasks. 2=Patient will verbalize/demonstrate understanding of assistive devices/ modifications for ADL. 3=Patient will improve strength/tolerance for activity to enable patient to perform ADL's. OT Education/Plan Problem List/Assessment Assessment: Decreased Activ Tolerance, Impaired I ADL's, Impaired Self-Care Skills Discharge Recommendations Plan/Recommendations: Continue POC Therapy D/C Recommendations: Home w/ Family Support, Occupational Therapy Home Care Equpiment Recommendations-D/C: Hip Kit Treatment Plan/Plan of Care Treatment,Training & Education: Yes Patient would benefit from OT for education, treatment and training to promote independence in ADL's, mobility, safety and/or upper extremity function for ADL' s. Plan of Care: ADL Retraining, Caregiver Training, Functional Mobility, Group Exercise/Act as Ind, UE Funct Exercise/Act Treatment Duration: Jul 12, 2017 Frequency: At least 5 of 7 days/Wk (IRF) Estimated Hrs Per Day: 1.5 hours per day Agreement: Yes Rehab Potential: Good Time/GCodes Start Time: 08:30 Stop Time: 09:30 Total Time Billed (hr/min): 60 Billed Treatment Time 1 visit, ADL 3 (50 minutes) EX 1 (10 minutes) JON CROWELL OT Jun 29, 2017 09:56
--- NOTE | 2017-06-29 11:01 | Physical Therapy Daily Note ---
PT Daily Note-Current Subjective Pt was sitting in chair prior to tx and agreeable to PT. Pt reports 4/10 pain in right hip. Pt was sitting in chair with nurse call, phone, tray, all needs in reach post tx. Pain Numeric Pain Scale: 4 Location Body Site: Hip (right) Pain Description: Ache Mental Status Patient Orientation: Normal For Age Attachments: Oxygen 2 L oxygen Transfers Functional [place] Measure 0=Not Assessed/NA 4=Minimal Assistance 1=Total Assistance 5=Supervision or Setup 2=Maximal Assistance 6=Modified [place] 3=Moderate Assistance 7=Complete IndependenceIRFPAI Quality Coding Scale 6 Independent with activity with or without an assistive device 5 Patient requires set up or clean up by helper. Patient completes activity by themselves 4 Supervision or touching assist (CGA). [place] provide cues , steadying assist 3 The helper provides less than half the effort to complete the activity 2 The helper provides more than half the effort to complete the activity 1 Dependent. The helper does all the effort to complete an activity 7 Patient refused to complete or attempt activity 9 The patient did not perform the activity before the current illness or injury 88 Not attempted due to Medical conditions or safety concerns Transfers (B, C, W/C) (FIM): 4 Sit to/from Stand: 4 Pt completes sit to stand transfers with CGA for safety. Pt requires verbal cues on hand placement and reviewed hip precautions. Gait Training Does the Patient Walk?: Yes Gait (FIM): 4 Distance (FIM): 3=150 ft Distance: 150'x2 Gait Level of Assist: 4 Gait Persons Needed: 1 Gait Assistive Device: FWW Pt ambulates with CGA and FWW for safety. Pt is steady and balance does not appear to be an issue. Exercises Seated Therapy Exercises: Ankle pumps, Long arc quads, Glut set Seated Reps: [address] Ex=Flex, Abd, Ext, Mini squats 20 Treatments Pt completes standing exercises in parallel bars to increase hip AROM and hip strengthening and gait training to increase functional mobility. Patient was also toileted once. Assessment Current Status: Fair Progress Pt ambulation and mobility is improving. PT Short Term Goals Short Term Goals Time Frame: Jul 05, 2017 Transfers (B,C,W/C) (FIM): 5 Gait (FIM): 5 PT Computer Information Science Professor Goals Computer Information Science Professor Goals PT [facility] Goals Time Frame: Jul 13, 2017 Transfers (B,C,W/C) (FIM): 6 Sit to Lying (QC): 6 Lying-Sitting on Side/Bed(QC): 6 Sit to Stand (QC): 6 Roll Left to Right (QC): 6 Chair/Din-sa-Stsnf Xfer(QC): 6 Car Transfer (QC): 5 Does the Patient Walk: Yes Gait (FIM): 6 Gait distance (FIM): 3=150 ft Walk 10 feet (QC): 6 Walk 10ft-Uneven Surface(QC): 6 Walk 50ft with 2 Turns (QC): 6 Walk 150 ft (QC): 6 Gait Assistive Device: FWW Does the Pt use WC or Scooter?: No Stairs (FIM): 5 (household) # of Steps: 8 1 Step (curb) (QC): 6 4 Steps (QC): 6 12 Steps (QC): 88 Picking up an Object (QC): 88 (hip precautions) PT Plan Problem List Problem List: Activity Tolerance, Functional Strength, Safety, Balance, Gait, Transfer, Bed Mobility, ROM Treatment/Plan Treatment Plan: Continue Plan of Care Treatment Plan: Bed Mobility, Education, Functional Activity Lm, Functional Strength, Group Therapy, Safety, Therapeutic Exercise, Transfers Treatment Duration: Jul 13, 2017 Frequency: At least 5 of 7 days/Wk (IRF) Estimated Hrs Per Day: 1.5 hours per day Patient and/or Family Agrees t: Yes Safety Risks/Education Patient Education: Gait Training, Transfer Techniques, Reviewed Precautions, Correct Positioning, Safety Issues Teaching Recipient: Patient Teaching Methods: Demonstration, Discussion Response to Teaching: Verbalize Understanding, Reinforcement Needed Time/GCodes Time In: 1000 Time Out: 1100 Total Billed Treatment Time: 60 Total Billed Treatment 1 visit 25 GT 35 LUIS SANDOVAL PT Jun 29, 2017 11:01
--- NOTE | 2017-06-29 11:09 | Progress Note-Hospitalist ---
Subjective HPI/CC On Admission Date Seen by Provider: Jun 29, 2017 Time Seen by Provider: 10:55 Subjective/Events-last exam CC: Cough HPI: pt is a 72yoCF who recently had right hip replacement and transferred to IRU yesterday. She developed a fever yesterday afternoon and a cough. She reports feeling well otherwise. She states last BM on Sunday. Has not had a fever this AM. CXR and UA done yesterday unremarkable. Otherwise no concerns for RN or patient. Objective Exam Vital Signs Vital Sign - Last 12Hours 06/28/17 06/28/17 06/28/17 12:00 14:18 17:24 Temp 103.0 Pulse 89 Resp 20 B/P (MAP) 114/65 Pulse Ox 95 O2 Delivery Nasal Cannula O2 Flow Rate 2.00 Capillary Refill : Less Than 3 Seconds General Appearance: No Apparent Distress, WD/WN Respiratory: Lungs Clear, No Respiratory Distress Cardiovascular: Regular Rate, Rhythm, No Murmur Gastrointestinal: Normal Bowel Sounds, Non Tender, Soft Extremity: Non Tender, No Calf Tenderness Neurologic/Psychiatric: Alert, Oriented x3 Results/Procedures Lab Laboratory Tests 06/29/17 05:15 Assessment/Plan Assessment and Plan Assess & Plan/Chief Complaint Fever Diagnosis/Problems Diagnosis/Problems (1) Postoperative fever Status: Acute Assessment & Plan: Resolved this AM Will monitor Ortho aware- believes due to constipation Will start bowel regimen Encouraged IS Tylenol PRN (2) 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 Assessment & Plan: s/p replacement Management per rehab team (3) Hypothyroidism Status: Chronic Assessment & Plan: Continue supplement (4) Essential (primary) hypertension Status: Chronic Assessment & Plan: Well controlled, continue home meds (5) Constipation Status: Acute Assessment & Plan: Added bowel regimen JASON STERLING MD Jun 29, 2017 11:09
[2017-06-29] MEDS ORDERED: MILK OF MAGNESIA 400 MG/5 ML 30 ML UDC PO PRN (11:15)
[2017-06-29] MEDS ORDERED: POLYETHYLENE GLYCOL 17 GM (MIRALAX) PACK PO PRN (11:15)
[2017-06-29] MEDS ORDERED: DOCUSATE SODIUM 100 MG (COLACE) CAP PO PRN (11:15)
[2017-06-29] MEDS ORDERED: ENOXAPARIN 40 MG/0.4 ML (LOVENOX) SYR SC SCH (11:30)
--- NOTE | 2017-06-29 13:33 | PM & R (SOAP) Progress Note ---
Subjective Time Seen by Provider: 08:00 Subjective/Events-last exam Patient was seen in her room this AM Appreciate DR Balderrama note and orders Patient min assist for transfers Patient remains on 02 postop Review of Systems Pulmonary: Dyspnea Musculoskeletal: leg pain Objective Exam Last Set of Vital Signs Vital Signs Date Time Temp Pulse Resp B/P (MAP) Pulse Ox O2 Delivery O2 Flow Rate FiO2 06/29/17 09:00 Nasal Cannula 2.00 06/29/17 06:13 95 06/29/17 05:52 98.8 111 20 117/61 Capillary Refill : Less Than 3 Seconds I&O Intake and Output 06/30/17 00:00 Intake Total 800 ml Balance 800 ml Intake Oral 800 ml # Voids 4 General: Alert, Oriented X3, Cooperative, No Acute Distress HEENT: Atraumatic, PERRLA, EOMI, Mucous Memb Moist/[place] Neck: Supple, No JVD Lungs: Clear to Auscultation Heart: Regular Rate Abdomen: Normal Bowel Sounds, Soft, No Tenderness Extremities: No Edema Neuro: Other (mild rt leg weakness) Results Lab Laboratory Tests 06/28/17 17:30: Urine Color YELLOW, Urine Clarity CLEAR, Urine pH 6.5, Urine Specific [place] 1.010L, Urine Protein NEGATIVE, Urine Glucose (UA) NEGATIVE, Urine Ketones 1+H, Urine Nitrite NEGATIVE, Urine Bilirubin NEGATIVE, Urine Urobilinogen NORMAL, Urine Leukocyte Esterase NEGATIVE, Urine RBC (Auto) NEGATIVE, Urine RBC NONE, Urine WBC NONE, Urine Squamous Epithelial Cells RARE, Urine Crystals NONE, Urine Bacteria NONE, Urine Casts NONE, Urine Mucus NEGATIVE, Urine Culture Indicated NO 06/29/17 05:15: White Blood Count 14.7H, Red Blood Count 3.37L, Hemoglobin 8.6L, Hematocrit 28L , Mean Corpuscular Volume 82, Mean Corpuscular Hemoglobin 26, Mean Corpuscular Hemoglobin Concent 31L, Red Cell Distribution Width 14.0, Platelet Count 262, Mean Platelet Volume 8.7, Neutrophils (%) (Auto) 86H, Lymphocytes (%) (Auto) 9L , Monocytes (%) (Auto) 5, Eosinophils (%) (Auto) 0, Basophils (%) (Auto) 0, Neutrophils # (Auto) 12.6H, Lymphocytes # (Auto) 1.4, Monocytes # (Auto) 0.7, Eosinophils # (Auto) 0.0, Basophils # (Auto) 0.0 Assessment/Plan Assessment S/P RT THR for Avascular necrosis of hip Post op fever felt to be related to constipation with CXR WNL and u/a negative Post op anemia Postop resp insufficiency HTN controlled Plan Continue PT/OT F/U with Hospitalist prn Team Conference next week Bowel program adjusted for constipation RENE WELLS MD Jun 29, 2017 13:33
--- NOTE | 2017-06-29 13:38 | Individualized Plan of Care ---
Individualized Plan of Care Rehab Nursing IPOC Order Admission Date Jun 28, 2017 at 12:00 Current Orders Orders Admission Arrival Bed Request (06/28/17 12:00) Admission (Physician Order) (06/28/17 12:00) Admission-Acute Rehab Unit (06/28/17 13:08) Sequential Compression Device (06/28/17 13:08) Hose Builder-Inpt Rehab (06/28/17 13:08) Rehab Nursing Orders-Ipoc (06/28/17 13:08) Turn And Reposition Q2HR (06/28/17 13:08) Precautions (Aru) (06/28/17 13:08) Weekly Weight (Lbs) WEEK (06/28/17 13:08) Acetaminophen Tablet/Caplet (Tylenol T (06/28/17 13:15) Consult Physician (06/28/17 13:14) Chest Pa/Lat (2 View) (06/28/17 13:20) Ua Culture If Indicated (06/28/17 17:30) Code/Resuscitation (06/28/17 13:27) Abduction Pillow: Apply (06/28/17 13:27) Oxygen-Administer 07,19 (06/28/17 13:27) Jay Hose , (06/28/17 13:27) Weight Bearing Status (06/28/17 13:27) General/Regular (06/28/17 Dinner) Incentive Spirometryrt Initial (06/28/17 13:27) Pt Evaluate/Treat Request (06/28/17 13:27) Request Ot Evaluate & Treat (06/28/17 13:27) Request For Cognitive Services (06/28/17 13:27) Patient Visit (06/28/17 ) Speech Sound Lang Comp (06/28/17 ) Fluticasone/Salmeterol Common (Advair 11 (06/28/17 14:53) D5 1/2 Ns 1000 Ml Iv Solution (Dextrose (06/28/17 14:56) Hydrocodone/Apap 10/325 Tablet (Lortab 1 (06/28/17 14:56) Tramadol Tablet (Ultram Tablet) (06/28/17 14:56) Senna S Tablet (Senokot S Tablet) (06/28/17 14:56) Baclofen Tablet (Lioresal Tablet) (06/28/17 14:56) Amlodipine Tablet (Norvasc Tablet) (06/28/17 14:56) Clopidogrel Tablet (Plavix Tablet) (06/28/17 14:56) Sequential Compression Device , (06/28/17 14:59) Dvt/Vte Risk - Notifiy Physici (06/28/17 14:59) Bisacodyl Suppository (Dulcolax Supposit (06/28/17 15:00) Etodolac Capsule/Tablet (Lodine Capsule/ (06/30/17 09:00) Levothyroxine Tablet (Synthroid Tablet) (06/28/17 15:00) Paroxetine Tablet (Paxil Tablet) (06/28/17 15:00) Famotidine Tablet (Pepcid Tablet) (06/28/17 15:00) Potassium Chloride (Tablet) (Klor Con Ta (06/28/17 15:00) Pantoprazole Tablet (Protonix Tablet) (06/28/17 15:00) Sodium Chloride Flush (Catheter Flush Sy (06/28/17 15:15) Influenza Vac Order Indicated (06/28/17 15:07) Patient Visit (06/28/17 ) Pt Eval Moderate Complexity (06/28/17 ) Gait Training, Ea 15 Min (06/28/17 ) Functional Activities, Ea 15 (06/28/17 ) Pet Pass (06/28/17 18:18) Cbc With Automated Diff (06/29/17 06:00) Magnesium Hydroxide Oral Susp (Mom Oral (06/29/17 11:15) Docusate Sodium Capsule (Colace Capsule) (06/29/17 11:15) Polyethylene Glycol Powder Pkt (Miralax (06/29/17 11:15) Enoxaparin Injection (Lovenox Injection) (06/29/17 11:30) Rehab Nursing Orders: Diseage Management, Edu in Press Rel Techn, Hydration Management, Nutrition Management, Pain Management Other Nursing Orders: Bowel program for constipation adjusted Monitor for any urinary retention Intensity of Therapy to be met Patient to be seen: Min.3h per day/5 of 7d PT IPOC Problem List: Activity Tolerance, Functional Strength, Safety, Balance, Gait, Transfer, Bed Mobility, ROM Treatment Plan: Continue Plan of Care Bed Mobility, Education, Functional Activity Lm, Functional Strength, Group Therapy, Safety, Therapeutic Exercise, Transfers Treatment Duration: Jul 13, 2017 Frequency: At least 5 of 7 days/Wk (IRF) Estimated Hrs Per Day: 1.5 hours per day OT IPOC Problems: Decreased Activ Tolerance, Impaired I ADL's, Impaired Self-Care Skills OT Treatment, Training and Edu: Yes Plan of Care: ADL Retraining, Caregiver Training, Functional Mobility, Group Exercise/Act as Ind, UE Funct Exercise/Act Treatment Duration: Jul 12, 2017 Frequency: At least 5 of 7 days/Wk (IRF) Estimated Hrs Per Day: 1.[address] IPOC Speech Therapy Treatment Plan: Discontinue ST Treatment Duration: Jun 29, 2017 Frequency: Modified Program (IRF) Estimated Hrs Per Day: Other (Evaluation, only.) Hose Builder/Case Mgmt Hose Builder/Case Managemen: Discharge Planning, Patient/Family Counseling Physician IPOC Medical Issues being managed closely and that require the 24 hour availability of a physician: post op anemia postop fever post op resp insufficiency HTN Medical Issues: Bowel/Bladder Function, DVT Prophylaxis, Falls Precautions, Fluid/Electrolyte/Nutrition Balance, Infection Protection, Pain Management, Wound Care, Other (List) (as per above) Brief Synthesis of Preadmission Screen, Post-Admission Evaluation, and Therapy Evaluations:72 yo female who had Elective RT THR for avascular necrosis of hip .Had been Independent but had antalgic gait.Referred to IRU for ortho rehab Has postop fever and other issues as per above as being addressed Medical Prognosis: good Anticipated Length of Stay: 10-5-17 Rehab Goals Modified Independent to supervision for adls and mobility skills with weaning from supplemental 02 and resolution of postop fever Anticipated discharge destinat: Home with family and [facility] RENE WELLS MD Jun 29, 2017 13:38
--- NOTE | 2017-06-29 14:59 | Therapy Group Daily Note ---
Therapy Daily Group Note Patient Education Topic Home Safety, Fall Prevention Exercises LE Seated Exercise, UE Exercise Other/Notes Pt was an active participant in OT/PT group. She introduced herself and talked about the first car that she drove. She contributed to education/discussion on ARU/rehab process and fall prevention, identifying ways to help prevent future falls. She also did seated UE and LE exercises, modifying them as needed for her impairment. She walked to and from group with CGA and FWW and was returned to bed after group, needing assist into bed, all needs met. Start Time: 13:00 Stop Time: 14:20 Total Billed Treatment Time: 80 Total Billed Treatment 1,GRP DARINEL JIMENEZ DESKTOP PUBLISHING OPERATOR Jun 29, 2017 14:58
[2017-06-29 18:00] VITALS: BP 120/74
[2017-06-29] MEDS ORDERED: RT-ALBUTEROL/IPRATROPIUM 3 ML (DUONEB) VIAL ONE (21:30)
[2017-06-29] MEDS ORDERED: ENOXAPARIN 100 MG/1 ML (LOVENOX) SYR SC ONE (22:15)
[2017-06-29] MEDS ORDERED: IOHEXOL 350 MG/ML 150 ML (OMNIPAQUE 350) VIAL IV ONE (22:30)
[2017-06-29] MEDS ORDERED: NS 100 ML (IVPB) BAG IV ONE (22:30)
[2017-06-29] MEDS ORDERED: ENOXAPARIN 60 MG/0.6 ML (LOVENOX) SYR ONE (22:34)
[2017-06-29] MEDS ORDERED: ENOXAPARIN 30 MG/0.3 ML (LOVENOX) SYR ONE (22:34)
[2017-06-29 22:40] VITALS: BP 137/78
[2017-06-30] MEDS ORDERED: methylPREDNISolone 40 MG/ML (Solu-MEDROL) VIAL ONE (00:14)
[2017-06-30] MEDS ORDERED: LEVOFLOXACIN 750 MG/150 ML IV 150 ML IV ONE ×2 (00:15→00:30)
[2017-06-30] MEDS ORDERED: methylPREDNISolone 40 MG/ML (Solu-MEDROL) VIAL IV ONE (00:30)
--- NOTE | 2017-06-30 08:06 | Diagnostic Imaging Report ---
PROCEDURE: CT angiography of the chest with contrast. TECHNIQUE: Multiple contiguous axial images were obtained through the chest after uneventful bolus administration of intravenous contrast. Reconstructed CTA MIP acquisitions were also performed. INDICATION: Shortness of breath, pulmonary embolism. COMPARISON: None. FINDINGS: Heart, pulmonary arteries, and aorta are grossly unremarkable. There are coronary artery calcifications. No pericardial effusion is seen. There is fluid distended thoracic esophagus. No obvious mass or inflammatory process is seen. There is a small hiatal hernia. Consider direct visualization. Infiltrates are seen in the lung bases right greater than left. There is focal scarring in both bases. Centrilobular emphysema is seen throughout. There is no pneumothorax, effusion, or nodule. There is no mass. Osseous structures are unremarkable. Visualized upper abdominal solid organs are intact. There is aortic atherosclerotic disease. IMPRESSION: 1. No pulmonary embolism or aortic pathology. 2. Fluid distended esophagus with small hiatal hernia. Recommend direct visualization. 3. Basilar infiltrates right greater than left with reactive right hilar lymphadenopathy. This may represent pneumonia infectious and/or aspiration in nature. 4. Centrilobular emphysema. Agree with preliminary report. Dictated by: Dictated on workstation # [id number]
[2017-06-30] MEDS ORDERED: ETODOLAC 300 MG (LODINE) CAP PO SCH (09:00)
[2017-07-01] MEDS ORDERED: CLOP75TA28 PO (15:44)
--- NOTE | 2017-07-03 11:38 | Therapy Team Discharge Summary ---
Therapy Discharge Summary Discharge Recommendations Date of Discharge Jun 30, 2017 at 00:36 Therapy D/C Recommendations: Home w/ Family Support, Occupational Therapy Home Care Physical Therapy This patient was transferred to ARU post THR due to AVN and hip pain. Upon admit, she was mod assist with transfers and ambulated 125 ft with FWW with min assist. She was able to traverse 1 step with min assist. She transferred off the unit the next day due to respiratory distress. Her last visit on ARU, she was min assist iwth tranfers and gait. She did not meet goals due to short LOS and transfer off the unit. While here, treatment did consist of functional mobility and strength and she was making progress. DC PT due to transfer off the unit. PT Tattoo Technician Goals Senior Care Goals PT Senior Care Goals Time Frame: Jul 13, 2017 Transfers (B,C,W/C) (FIM): 6 Roll Left to Right (QC): 6 Sit to Lying (QC): 6 Lying-Sitting on Side/Bed(QC): 6 Sit to Stand (QC): 6 Chair/Tkk-gy-Jijdo Xfer(QC): 6 Car Transfer (QC): 5 Does the Patient Walk: Yes Gait (FIM): 6 Gait distance (FIM): 3=150 ft Walk 10 feet (QC): 6 Walk 10ft-Uneven Surface(QC): 6 Walk 50ft with 2 Turns (QC): 6 Walk 150 ft (QC): 6 Gait Assistive Device: FWW Does the Pt use WC or Scooter?: No Stairs (FIM): 5 (household) # of Steps: 8 1 Step (curb) (QC): 6 4 Steps (QC): 6 12 Steps (QC): 88 Picking up an Object (QC): 88 (hip precautions) No goals met as pt was only on the unit for a short period before being transferred to ICU. OT Tattoo Technician Goals Senior Care Goals Time Frame: Jul 12, 2017 Eating (FIM): 6 Eating (QC): 6 Oral Hygiene (QC): 6 Grooming(FIM): 6 Bathing(FIM): 5 Shower/Bathe Self (QC): 5 Upper Body Dressing(FIM): 6 Upper Body Dressing (QC): 6 Lower Body Dressing(FIM): 6 Lower Body Dressing (QC): 6 On/Off Footwear (QC): 6 Toileting(FIM): 6 Toileting Hygiene (QC): 6 Transfers (B,C,W/C) (FIM): 6 Toilet/Commode Transfer(FIM): 6 Toilet/Commode Transfer (QC): 6 Shower Transfer(FIM): 5 Additional Goals: 1-Demonstrate ADL Tasks, 2-Verbalize Understanding, 3- ImproveStrength/Lm 1=Demonstrate adherence to instructed precautions during ADL tasks. 2=Patient will verbalize/demonstrate understanding of assistive devices/ modifications for ADL. 3=Patient will improve strength/tolerance for activity to enable patient to perform ADL's. DANIEL GILLESPIE PT Jul 03, 2017 11:38
--- NOTE | 2017-07-03 15:18 | Physician Query Clarification ---
PQ-Intro New Diagnosis Admission/Discharge Admission Date: Jun 28, 2017 at 12:00 Discharge Date: Jun 30, 2017 at 00:36 The medical record reflects the following clinical scenario: History/Risk Factors: Status post right THR, asthma Clinical Findings: wheezing, difficulty clearing secretions. T102.1, P124, WBC's 14.7, Basilar infiltrates right greater than left with reactive right hilar lymphadenopathy. This may represent pneumonia infectious and/or aspiration in nature. Treatment: O2 flow rate 18.00, vapotherm Question: What condition best reflects the above clinical scenario? Please document below. 1. Acute Respiratory Failure and Pneumonia (if yes, please specify type) 2. postop respiratory insufficiency 3. Other, with explanation of the clinical findings. 4. Clinically undetermined, no explanation for the clinical findings. PHYSICIAN RESPONSE What condition reflects above: 1 Explanation of clincal finding Acute respiratory failure due to aspiration pneumonia In responding to this query, please exercise your independent professional judgment. The purpose of this communication is to more accurately reflect the complexity of your patients condition. The fact that a question is asked does not imply that any particular answer is desired or expected. Thank you for your timely response to this clarification. Requestors name: Elicia THIS PHYSICIAN QUERY FORM IS A PERMANENT PART OF THE MEDICAL RECORD ELICIA HUGO Jul 03, 2017 15:18 JASON STERLING MD Jul 09, 2017 13:45
--- NOTE | 2017-07-03 16:42 | Therapy Team Discharge Summary ---
Therapy Discharge Summary Discharge Recommendations Date of Discharge Jun 30, 2017 at 00:36 Therapy D/C Recommendations: Home w/ Family Support, Occupational Therapy Home Care Occupational Therapy Pt. had been seen by occupational therapy to increase overall strength and independence with daily skills. Pt. discharged to ICU due to change in medical status. At discharge from rehab, pt. able to complete all tasks with min/SBA. Due to change in medical status, and discharge to intensive care, goals not met at this time. Decreased Activ Tolerance, Impaired I ADL's, Impaired Self-Care Skills PT Senior Living Goals Senior Living Goals PT Senior Living Goals Time Frame: Jul 13, 2017 Transfers (B,C,W/C) (FIM): 6 Roll Left to Right (QC): 6 Sit to Lying (QC): 6 Lying-Sitting on Side/Bed(QC): 6 Sit to Stand (QC): 6 Chair/Wjm-pr-Orzed Xfer(QC): 6 Car Transfer (QC): 5 Does the Patient Walk: Yes Gait (FIM): 6 Gait distance (FIM): 3=150 ft Walk 10 feet (QC): 6 Walk 10ft-Uneven Surface(QC): 6 Walk 50ft with 2 Turns (QC): 6 Walk 150 ft (QC): 6 Gait Assistive Device: FWW Does the Pt use WC or Scooter?: No Stairs (FIM): 5 (household) # of Steps: 8 1 Step (curb) (QC): 6 4 Steps (QC): 6 12 Steps (QC): 88 Picking up an Object (QC): 88 (hip precautions) OT Senior Living Goals Senior Living Goals Time Frame: Jul 12, 2017 Eating (FIM): 6 (not met) Eating (QC): 6 (not met) Oral Hygiene (QC): 6 (not met) Grooming(FIM): 6 (not met) Bathing(FIM): 5 (not met) Shower/Bathe Self (QC): 5 (not met) Upper Body Dressing(FIM): 6 (not met) Upper Body Dressing (QC): 6 (not met) Lower Body Dressing(FIM): 6 (not met) Lower Body Dressing (QC): 6 (not met) On/Off Footwear (QC): 6 (not met) Toileting(FIM): 6 (not met) Toileting Hygiene (QC): 6 (not met) Transfers (B,C,W/C) (FIM): 6 (not met) Toilet/Commode Transfer(FIM): 6 (not met) Toilet/Commode Transfer (QC): 6 (not met) Shower Transfer(FIM): 5 (not met) Additional Goals: 1-Demonstrate ADL Tasks, 2-Verbalize Understanding, 3- ImproveStrength/Lm 1=Demonstrate adherence to instructed precautions during ADL tasks. 2=Patient will verbalize/demonstrate understanding of assistive devices/ modifications for ADL. 3=Patient will improve strength/tolerance for activity to enable patient to perform ADL's. JON CROWELL OT Jul 03, 2017 16:41
[2017-07-04] MEDS ORDERED: BENZ100C23 PO (10:40)
== END 2017-06-30 00:36 | disposition short-term general hospital (02) | DRG 559 ==
PROVIDERS: ADMIT Physical Medicine & Rehabilitation; ATTEND Physical Medicine & Rehabilitation
DX: Z47.1 Aftercare following joint replacement surgery (principal); Z96.641 Presence of right artificial hip joint; J96.00 Acute respiratory failure, unspecified whether with hypoxia or hypercapnia; J69.0 Pneumonitis due to inhalation of food and vomit; J45.909 Unspecified asthma, uncomplicated; D64.9 Anemia, unspecified; K59.09 Other constipation; R50.82 Postprocedural fever; E78.5 Hyperlipidemia, unspecified; F32.9 Major depressive disorder, single episode, unspecified; K57.90 Diverticulosis of intestine, part unspecified, without perforation or abscess without bleeding; I73.9 Peripheral vascular disease, unspecified; R06.89 Other abnormalities of breathing; E03.9 Hypothyroidism, unspecified; I10 Essential (primary) hypertension; Z99.81 Dependence on supplemental oxygen; Z85.828 Personal history of other malignant neoplasm of skin
CPT/HCPCS: 36415; 71020; 71275; 81000; 85025; 94640

== ENCOUNTER 2017-06-30 00:30 | Inpatient (IN) | payer MEDICARE ==
[2017-06-30] VITALS (25 sets, daily range): BP systolic 103–141; BP diastolic 48–100
[~2017-06-30] VITALS: Ht 170.2 cm; Wt 94.1 kg
[2017-06-30] MEDS ORDERED: RT-ALBUTEROL/IPRATROPIUM 3 ML (DUONEB) VIAL ONE (01:57)
[2017-06-30] MEDS ORDERED: HYDROcodone/APAP 10 MG/325 MG (LORTAB) TAB PO PRN (02:15)
[2017-06-30] MEDS ORDERED: ACETAMINOPHEN 325 MG TABLET/CAPLET (TYLENOL) PO PRN (02:15)
[2017-06-30] MEDS ORDERED: BISACODYL 10 MG SUPP (DULCOLAX) PR PRN (02:15)
[2017-06-30] MEDS ORDERED: CATHETER FLUSH 10 ML SYR IV PRN (02:15)
[2017-06-30] MEDS ORDERED: MILK OF MAGNESIA 400 MG/5 ML 30 ML UDC PO PRN (02:15)
[2017-06-30] MEDS ORDERED: RT-ALBUTEROL/IPRATROPIUM 3 ML (DUONEB) VIAL INH PRN (04:00)
[2017-06-30 05:08] LABS: ABG BASE EXCESS 1.1 MMOL/L (-2.5-2.5); ABG HCO3 25 MMOL/L (23-27); ABG OXYGEN SATURATION 97 % (94-100); ABG PCO2 37 MMHG (35-45); ABG PH 7.44 (7.37-7.43); ABG PO2 77 MMHG (79-93)
[2017-06-30 05:15] LABS: BASOPHILS % (AUTO) 0 % (0-10); EOSINOPHILS % (AUTO) 0 % (0-10); LYMPHOCYTES # (AUTO) 0.6 X 10^3 (1.0-4.0); LYMPHOCYTES % (AUTO) 4 % (12-44); MEAN CORPUSCULAR HEMOGLOBIN 26 PG (25-34); MEAN CORPUSCULAR HGB CONC 32 G/DL (32-36); MEAN CORPUSCULAR VOLUME 81 FL (80-99); MEAN PLATELET VOLUME 9.1 FL (7.4-10.4); MONOCYTES # (AUTO) 0.4 X 10^3 (0.0-1.0); MONOCYTES % (AUTO) 3 % (0-12); NEUTROPHILS # (AUTO) 12.7 X 10^3 (1.8-7.8); NEUTROPHILS % (AUTO) 93 % (42-75); PLATELET COUNT 305 10^3/uL (130-400); RED BLOOD COUNT 3.38 10^6/uL (4.35-5.85); WHITE BLOOD COUNT 13.6 10^3/uL (4.3-11.0)
[2017-06-30 05:18] LABS: ALLENS TEST YES-POS; PATIENT TEMP 98.2
[2017-06-30 05:33] LABS: ANION GAP 13 MMOL/L (5-14); BLOOD UREA NITROGEN 10 MG/DL (7-18); BUN/CREATININE RATIO 13; CALCIUM 9.2 MG/DL (8.5-10.1); CARBON DIOXIDE 24 MMOL/L (21-32); CHLORIDE 97 MMOL/L (98-107); GFR ESTIMATED > 60; GLUCOSE 152 MG/DL (70-105); MAGNESIUM 1.6 MG/DL (1.8-2.4); POTASSIUM 3.6 MMOL/L (3.6-5.0); SODIUM 134 MMOL/L (135-145)
[2017-06-30 05:44] LABS: TROPONIN I < 0.30 NG/ML (<0.30)
[2017-06-30] MEDS ORDERED: ACETAMINOPHEN 650 MG SUPP (TYLENOL) PR PRN (05:45)
[2017-06-30] MEDS: POTASSIUM CL 10MEQ/50ML IVPB 50 ML IV SCH ×3 (06:23→06:57)
[2017-06-30] MEDS: MAGNESIUM 1 GM/100 ML IVPB 100 ML IV SCH ×3 (06:23→06:57)
[2017-06-30] MEDS: KCL 20 MEQ TAB (K-DUR) PO SCH ×2 (06:24→09:17)
[2017-06-30] MEDS: PANTOPRAZOLE 20 MG TABLET (PROTONIX) PO SCH (06:55)
[2017-06-30] MEDS: LEVOTHYROXINE 125 MCG (LEVOTHROID) TABLET PO SCH (06:55)
[2017-06-30] MEDS: NS IV 1000 ML 1,000 ML IV SCH ×2 (06:55→14:25)
[2017-06-30] MEDS: KCL 10 MEQ TAB (MICRO K) PO SCH ×2 (06:55→15:47)
[2017-06-30] MEDS: RT-ADVAIR HFA 115/21 MCG PER PUFF IH SCH (07:11)
[2017-06-30] MEDS: RT-ALBUTEROL/IPRATROPIUM 3 ML (DUONEB) VIAL INH SCH ×5 (07:11→21:58)
--- NOTE | 2017-06-30 07:56 | History & Physical-Hospitalist ---
HPI History of Present Illness: HPI/Chief Complaint Pt is a 72yoCF with recent right hip replacement due to AVN admitted to ICU form IRU for acute onset respiratory distress last night. Per patient reports she was eating chicken stir coe and had significant coughing while eating it. Shortly afterward her nurse went to her room to assess her and found her to have an oxygen sauration of 79%, HR in the 110s, and febrile. I was notified at this time and a CTA chest was ordered to rule out PE and she was given a 1x dose of therapeutic lovenox. CTA was done and showed no PE but was significant for aspiration pneumonia. She continued to require more oxygen eventually necessitating Vapotherm. She was transferred from IRU to ICU for stabilization and ultimately ended upon BiPAP. I order MAT Protocol, Solu-Medrol and Levaquin. She responded well to this and was taken off of BiPAP shortly upon arrival to ICU. She feels she is breathing better this morning but has shortness of breath. She acknowledges need for diet restriction given concerns for aspiration. Source: patient, RN/MD, old records Exam Limitations: no limitations Date Seen 06/30/17 Time Seen by Provider: 07:10 Attending Physician Jason Sterling MD PCP Erasmo Morris DO Referring Physician Date of Admission Jun 30, 2017 at 00:30 Home Medications & Allergies Home Medications Reviewed patient Home Medication Reconciliation Form Allergies Allergies Coded Allergies codeine (Verified Allergy, Intermediate, GI UPSET, 06/07/17) morphine (Verified Allergy, Mild, NAUSEA, 06/26/17) metformin (Verified Adverse Reaction, Mild, NAUSEA, DIARRHEA, 06/27/17) Past [id number] Hx Patient Social History Alcohol Use: Denies Use Recreational Drug Use: No Former Smoker, Quit: Jun 07, 2005 Physical Abuse Screen: No Sexual Abuse: No Recent Foreign Travel: No Contact w/other who traveled: No Recent Hopitalizations: Yes Recent Infectious Disease Expo: No Immunizations Up To Date Pediatric: No Seasonal Allergies Seasonal Allergies: Yes Surgeries Yes (RIGHT CAROTID STENT, LEFT CAROTIDECTOMY, MODIFIED NECK DISSECTION, CATARACT ) Joint Replacement, Vascular Surgery Respiratory Yes Currently Using CPAP: No Cardiovascular Yes High Cholesterol, Hypertension Neurological No Reproductive System Sexually Transmitted Disease: No HIV/AIDS: No Genitourinary No Gastrointestinal Yes Gastroesophageal Reflux, Chronic Constipation, Diverticulosis, Polyps Musculoskeletal Yes Osteoporosis, Arthritis Endocrine History of Endocrine Disorders: Yes (DIET CONTROLLED) Endocrine Disorders: Diabetes, Non-Insulin dep HEENT History of HEENT Disorders: Yes (READING GLASSES, DENTURES, DENTAL IMPLANTS) 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) Skin Did You Recieve Any Treatments: Yes Type of Treatment: Chemotherapy, Radiation, Surgical Intervention Psychosocial History of Psychiatric Problem: Yes Behavioral Health Disorders: Anxiety, Depression Integumentary History of Skin or Integumenta: No Blood Transfusions History of Blood Disorders: No Adverse Reaction to a Blood Tr: No Family Medical History Family Hx: BREAST CANCER 19 MOTHER Cardiovascular disease 19 FATHER HODGKINS DISEASE G8 SISTER Hypertension 19 FATHER Myocardial infarction 19 FATHER Review of Systems Constitutional: No chills, fever EENTM: No blurred vision, No double vision, No nose congestion, No throat pain Respiratory: cough, No dyspnea on exertion, short of breath, wheezing Cardiovascular: No chest pain, No edema, No palpitations Gastrointestinal: No abdominal pain, No constipation, No diarrhea, No nausea, No vomiting Genitourinary: No dysuria, No frequency Musculoskeletal: No joint pain, No muscle pain Skin: No lesions, No rash Psychiatric/Neurological: Denies Headache, Denies Numbness, Denies Tingling Physical Exam Physical Exam Vital Signs Vital Sign - Last 12Hours Capillary Refill : General Appearance: No Apparent Distress, WD/WN HEENT: PERRL/EOMI, Moist Mucous Membranes, No Scleral Icterus (L), No Scleral Icterus (R) Respiratory: Lungs Clear, No Accessory Muscle Use, No Respiratory Distress, Other (getting breathing treatment during exam, on Vapotherm) Cardiovascular: Regular Rate, Rhythm, No JVD, No Murmur, Normal Peripheral Pulses Gastrointestinal: Non Tender, Soft Extremity: Non Tender, No Calf Tenderness, No Pedal Edema Neurologic/Psychiatric: Alert, Oriented x3, Normal Mood/Affect Skin: Normal Color, Warm/Dry Results Results/Procedures Lab Laboratory Tests 06/30/17 04:50 Assessment/Plan Admission Diagnosis Aspiration Pneumonia Diagnosis/Problems Diagnosis/Problems (1) Aspiration pneumonia Status: Acute Assessment & Plan: Pneumonia vs pneumonitis Given fever, leukocytosis will continue Levaquin MAT protocol Vapotherm SAMPLER FIRST eval ordered (2) Normocytic anemia Status: Acute Assessment & Plan: Postoperative, stable (3) 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 Assessment & Plan: s/p right hip replacement PT/OT Lortab and Tramadol prn pain (4) Essential (primary) hypertension Status: Chronic Assessment & Plan: Well controlled on amlodipine (5) Hypothyroidism Status: Chronic Assessment & Plan: Continue home Synthroid (6) Prophylactic measure Assessment & Plan: Lovenox NS @ 100ml/hr Dysphagia diet Clinical Quality Measures DVT/VTE Risk/Contraindication: Risk Factor Score Per Nursin RFS Level Per Nursing on Admit: 2=Moderate JASON STERLING MD Jun 30, 2017 07:56
--- NOTE | 2017-06-30 09:06 | Physical Therapy Ortho Eval ---
PT Orthopedic Evaluation Type of Surgery Right THR; Prior Level of Function Current Living Status: Spouse Locomotion (Upon Admit): Independent Established Durable Medical Eq: Front Wheeled Walker Subjective Subjective Agrees to PT. No complaints this morning. Entry Into Home: Stairs With Railing Objective Objective Pt transferred to ICU from ARU due to aspiration pneumonia and found to be in respiratory distress last PM. Refer to ARU evaluation . Motor Control Motor Control: Motor Control WNL ROM ROM: WFL within confines of THR precautions. Strength Strength: WFL grossly 4/5 throughout. Transfer Transfers (B, C, W/C) (FIM): 5 sBA with bed mobility and transfers. Gait Gait Assistive Device: FWW Weight Bearing Restriction: Weight Bearing/Tolerated Location Restriction: R LE Summary/Comments Pt did not walk this visit due to number of attachments associated with ICU. Pt stood EOB and walked in place, marched, calf raises, mini squats and performed sit to from stand x 5. Seated EOB pt performed IS to improve lung / air exchange. In bed post treatment with needs met. Assessment/Goals Goal Time Frame: Will progress mobility as able and increase ambulation and ther ex as able as well. Plan Treatment Plan: Bed Mobility, Education, Functional Activity Tolerated, Functional Strength, Gait, Safety, Therapeutic Exercise, Transfers Treatment Duration: 3-4 days Visits Per Week: 11 PT/Family Agrees to Plan: Yes Time Time In: 730 Time Out: 755 Total Billed Treatment Time: 25 Billed Treatment Time visit EVM 15 EX 10 DANIEL GILLESPIE PT Jun 30, 2017 09:06
[2017-06-30] MEDS: PARoxetine 10 MG (PAXIL) TAB PO SCH (09:13)
[2017-06-30] MEDS: ETODOLAC 300 MG (LODINE) CAP PO SCH ×2 (09:14→22:26)
[2017-06-30] MEDS: amLODIPine 10 MG (NORVASC) TAB PO SCH (09:14)
[2017-06-30] MEDS: SENNA W/DOCUSATE (SENOKOT S) TABLET PO SCH ×2 (09:15→22:23)
[2017-06-30] MEDS: FAMOTIDINE 20 MG (PEPCID) TABLET PO SCH (09:15)
[2017-06-30] MEDS: BACLOFEN 10 MG (LIORESAL) TAB PO SCH ×3 (09:15→22:23)
[2017-06-30] MEDS: CLOPIDOGREL 75 MG (PLAVIX) TABLET PO SCH (09:16)
--- NOTE | 2017-06-30 09:56 | Occupational Therapy Eval ---
OT Evaluation-General/PLF Medical Diagnosis Admission Date Jun 30, 2017 at 00:30 Medical Diagnosis: Pneumonia s/p hip replacement. Onset Date: Jun 26, 2017 Therapy Diagnosis Therapy Diagnosis: Weakness, decreased ADL skills Height/Weight Height (Feet): 5 Height (Inches): 7.00 Weight (Pounds): 208 Weight (Ounces): 9.0 Precautions Precautions/Isolations: Aspiration, Fall Prevention, Standard Precautions Weight Bear Status Weight Bearing Restriction: Weight Bearing/Tolerated Location Restriction: R LE Referral Physician: Dr. Powell Referral Reason: Activity Tolerance, Self Care, Evaluation/Treatment, Strengthening/ROM Medical History Pertinent Medical History: HTN Additional Medical History Hip surgery Current History Pt. on rehab unit for hip replacement. Transferred to ICU due to pneumonia. Reviewed History: Yes Social History Home: Single Level Current Living Status: Spouse Entry Into Home: Stairs With Railing Steps Into Home: 5 ADL-Prior Level of Function ADL PLOF Comments Pt. was independent with daily tasks previous to hip surgery. DME/Equipment: Bath Chair, Shower Drive Self: Yes OT Current Status Subjective No pain reported. Pt. states, "how did this happen?" Appearance Pt. in bed. Happy to see OT. Recognized OT from rehab unit. Mental Status/Objective Patient Orientation: Person, Place Current Glasses/Contacts: Yes Hand Dominance: Right Upper Extremity ROM WFL Upper Extremity Strength WFL ADL-Treatment Functional [place] Measure 0=Not Assessed/NA 4=Minimal Assistance 1=Total Assistance 5=Supervision or Setup 2=Maximal Assistance 6=Modified [place] 3=Moderate Assistance 7=Complete IndependenceIRFPAI Quality Coding Scale 6 Independent with activity with or without an assistive device 5 Patient requires set up or clean up by helper. Patient completes activity by themselves 4 Supervision or touching assist (CGA). Boaz provide cues , steadying assist 3 The helper provides less than half the effort to complete the activity 2 The helper provides more than half the effort to complete the activity 1 Dependent. The helper does all the effort to complete an activity 7 Patient refused to complete or attempt activity 9 The patient did not perform the activity before the current illness or injury 88 Not attempted due to Medical conditions or safety concerns Toileting (FIM): 5 Transfers (B, C, W/C) (FIM): 5 Toilet/Commode Transfer (FIM): 5 Pt. transferred supine-sit with SBA. Stood at walker with SBA. Practiced marching in place, shifting weight at side of bed. Pt. had multiple tubes in place and oxygen. Unable to take a walk at this time. [facility] [place] [facility] [place]. Toileted with SBA and got self back into bed. Able to get legs into bed with SBA. Education OT Patient Education: Correct positioning, Modified ADL techniques, Progress toward Goal/Update tx plan, Purpose of tx/functional activities, Reviewed precautions, Rehab process, Transfer techniques Teaching Recipient: Patient Teaching Methods: Demonstration, Discussion Response to Teaching: Verbalize Understanding, Return Demonstration OT Short Term Goals Short Term Goals 1=Demonstrate adherence to instructed precautions during ADL tasks. 2=Patient will verbalize/demonstrate understanding of assistive devices/ modifications for ADL. 3=Patient will improve strength/tolerance for activity to enable patient to perform ADL's. OT Alf Goals Alf Goals Time Frame: Jul 07, 2017 Eating (FIM): 6 Grooming(FIM): 6 Bathing(FIM): 6 Upper Body Dressing(FIM): 6 Lower Body Dressing(FIM): 6 Toileting(FIM): 6 Transfers (B,C,W/C) (FIM): 6 Toilet/Commode Transfer(FIM): 6 Shower Transfer(FIM): 5 Additional Goals: 1-Demonstrate ADL Tasks, 2-Verbalize Understanding, 3- ImproveStrength/Lm 1=Demonstrate adherence to instructed precautions during ADL tasks. 2=Patient will verbalize/demonstrate understanding of assistive devices/ modifications for ADL. 3=Patient will improve strength/tolerance for activity to enable patient to perform ADL's. Pt. has been educated on and has used adaptive equipment on rehab unit due to hip precautions. Will continue this when pt. returns to floor. OT Education/Plan Problem List/Assessment Assessment: Decreased Activ Tolerance, Impaired I ADL's, Impaired Self-Care Skills Discharge Recommendations Plan/Recommendations: Continue POC Therapy D/C Recommendations: Home w/ Family Support, Occupational Therapy Home Care Equpiment Recommendations-D/C: Hip Kit Treatment Plan/Plan of Care Treatment,Training & Education: Yes Patient would benefit from OT for education, treatment and training to promote independence in ADL's, mobility, safety and/or upper extremity function for ADL' s. Plan of Care: ADL Retraining, Functional Mobility Treatment Duration: Jul 07, 2017 Frequency: 5 times per week Estimated Hrs Per Day: .5 hour per day Agreement: Yes Rehab Potential: Good Time/GCodes Start Time: 08:45 Stop Time: 09:10 Total Time Billed (hr/min): 25 Billed Treatment Time 1, EVM x 10minutes, FA x 15minutes JON CROWELL OT Jun 30, 2017 09:56
--- NOTE | 2017-06-30 11:58 | Diagnostic Imaging Report ---
INDICATION: Pneumonia. COMPARISON: 06/28/17. FINDINGS: Single view of the chest demonstrates stable cardiac enlargement. Lungs are clear. There is no pneumothorax, effusion or infiltrate. IMPRESSION: Stable cardiac enlargement without pulmonary edema or infiltrate. Dictated by: Dictated on workstation # [id number]
[2017-06-30] MEDS: inSUlin (REGULAR) HUMAN 1 UNIT/0.01 ML (CHARGE PER UNIT) SC SCH ×3 (12:12→22:25)
[2017-06-30] MEDS: ENOXAPARIN 40 MG/0.4 ML (LOVENOX) SYR SC SCH (12:12)
[2017-06-30] MEDS: ACETAMINOPHEN 500 MG TAB (TYLENOL) PO PRN (22:27)
[2017-07-01] VITALS (9 sets, daily range): BP systolic 101–130; BP diastolic 60–80
[2017-07-01] MEDS: NS IV 1000 ML 1,000 ML IV SCH (00:45)
[2017-07-01] MEDS: LEVOFLOXACIN 750 MG/150 ML IV 150 ML IV SCH ×2 (01:15→23:36)
[2017-07-01] MEDS: RT-ALBUTEROL/IPRATROPIUM 3 ML (DUONEB) VIAL INH SCH ×6 (02:03→21:57)
[2017-07-01 05:20] LABS: BASOPHILS % (AUTO) 0 % (0-10); EOSINOPHILS # (AUTO) 0.1 10^3/uL (0.0-0.3); EOSINOPHILS % (AUTO) 1 % (0-10); LYMPHOCYTES # (AUTO) 1.3 X 10^3 (1.0-4.0); LYMPHOCYTES % (AUTO) 14 % (12-44); MEAN CORPUSCULAR HEMOGLOBIN 25 PG (25-34); MEAN CORPUSCULAR HGB CONC 31 G/DL (32-36); MEAN CORPUSCULAR VOLUME 82 FL (80-99); MONOCYTES # (AUTO) 0.7 X 10^3 (0.0-1.0); MONOCYTES % (AUTO) 8 % (0-12); NEUTROPHILS # (AUTO) 7.3 X 10^3 (1.8-7.8); NEUTROPHILS % (AUTO) 77 % (42-75); PLATELET COUNT 336 10^3/uL (130-400); RED BLOOD COUNT 2.92 10^6/uL (4.35-5.85); WHITE BLOOD COUNT 9.4 10^3/uL (4.3-11.0)
[2017-07-01 05:37] LABS: ANION GAP 12 MMOL/L (5-14); BLOOD UREA NITROGEN 11 MG/DL (7-18); BUN/CREATININE RATIO 15; CALCIUM 8.9 MG/DL (8.5-10.1); CARBON DIOXIDE 22 MMOL/L (21-32); CHLORIDE 105 MMOL/L (98-107); CREATININE SERUM 0.74 MG/DL (0.60-1.30); GFR ESTIMATED > 60; GLUCOSE 104 MG/DL (70-105); MAGNESIUM 2.1 MG/DL (1.8-2.4); POTASSIUM 3.8 MMOL/L (3.6-5.0); SODIUM 139 MMOL/L (135-145)
[2017-07-01] MEDS: RT-ADVAIR HFA 115/21 MCG PER PUFF IH SCH (06:58)
[2017-07-01] MEDS: MAGNESIUM 1 GM/100 ML IVPB 100 ML IV SCH (07:07)
[2017-07-01] MEDS: inSUlin (REGULAR) HUMAN 1 UNIT/0.01 ML (CHARGE PER UNIT) SC SCH ×4 (07:07→21:21)
[2017-07-01] MEDS: KCL 20 MEQ TAB (K-DUR) PO SCH (07:07)
[2017-07-01] MEDS: POTASSIUM CL 10MEQ/50ML IVPB 50 ML IV SCH (07:07)
[2017-07-01] MEDS: LEVOTHYROXINE 125 MCG (LEVOTHROID) TABLET PO SCH (07:42)
[2017-07-01] MEDS: PANTOPRAZOLE 20 MG TABLET (PROTONIX) PO SCH (07:42)
[2017-07-01] MEDS: KCL 10 MEQ TAB (MICRO K) PO SCH ×2 (07:42→17:07)
[2017-07-01] MEDS: PARoxetine 10 MG (PAXIL) TAB PO SCH (09:21)
[2017-07-01] MEDS: CLOPIDOGREL 75 MG (PLAVIX) TABLET PO SCH (09:22)
[2017-07-01] MEDS: ENOXAPARIN 40 MG/0.4 ML (LOVENOX) SYR SC SCH (09:22)
[2017-07-01] MEDS: DOCUSATE SODIUM 100 MG (COLACE) CAP PO PRN (09:22)
[2017-07-01] MEDS: SENNA W/DOCUSATE (SENOKOT S) TABLET PO SCH ×2 (09:22→20:08)
[2017-07-01] MEDS: amLODIPine 10 MG (NORVASC) TAB PO SCH (09:22)
[2017-07-01] MEDS: BACLOFEN 10 MG (LIORESAL) TAB PO SCH ×3 (09:22→20:08)
[2017-07-01] MEDS: ETODOLAC 300 MG (LODINE) CAP PO SCH ×2 (09:22→20:19)
[2017-07-01] MEDS: FAMOTIDINE 20 MG (PEPCID) TABLET PO SCH (09:22)
--- NOTE | 2017-07-01 09:23 | Progress Note-Hospitalist ---
Subjective HPI/CC On Admission Date Seen by Provider: Jul 01, 2017 Time Seen by Provider: 08:50 Pt is a 72yoCF with recent right hip replacement due to AVN admitted to ICU form IRU for acute onset respiratory distress last night. Per patient reports she was eating chicken stir coe and had significant coughing while eating it. Shortly afterward her nurse went to her room to assess her and found her to have an oxygen sauration of 79%, HR in the 110s, and febrile. I was notified at this time and a CTA chest was ordered to rule out PE and she was given a 1x dose of therapeutic lovenox. CTA was done and showed no PE but was significant for aspiration pneumonia. She continued to require more oxygen eventually necessitating Vapotherm. She was transferred from IRU to ICU for stabilization and ultimately ended upon BiPAP. I order MAT Protocol, Solu-Medrol and Levaquin. She responded well to this and was taken off of BiPAP shortly upon arrival to ICU. She feels she is breathing better this morning but has shortness of breath. She acknowledges need for diet restriction given concerns for aspiration. Subjective/Events-last exam Pt reports feeling better today. She has been able to transfer in and out of bed to [facility] She is inquiring about when she can get back to IRU for rehab. Objective Exam Vital Signs Vital Sign - Last 12Hours 06/30/17 08:05 Temp 98.0 Capillary Refill : Less Than 3 SecondsLess Than 3 Seconds General Appearance: No Apparent Distress, WD/WN Respiratory: No Respiratory Distress, Wheezing (expiratory) Cardiovascular: Regular Rate, Rhythm, No Murmur Gastrointestinal: Normal Bowel Sounds, Non Tender, Soft Extremity: Non Tender, No Calf Tenderness Neurologic/Psychiatric: Alert, Oriented x3 Results/Procedures Lab Laboratory Tests 07/01/17 04:58 Assessment/Plan Assessment and Plan Assess & Plan/Chief Complaint Aspiration Pneumonia Diagnosis/Problems Diagnosis/Problems (1) Aspiration pneumonia Status: Acute Assessment & Plan: Pneumonia vs pneumonitis Leukocytosis and fever resolved Continue Levaquin MAT protocol Vapotherm, titrate as able HEAVY EQUIPMENT OPERATOR APPRENTICE eval ordered Still wheezing shortly after DuoNebs so will add steroid burst Pulm consulted (2) Normocytic anemia Status: Acute Assessment & Plan: Postoperative, dropped ~1 point today trend, may need transfusion Consider IV iron if afebrile tomorrow still (3) 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 Assessment & Plan: s/p right hip replacement PT/OT Lortab and Tramadol prn pain (4) Essential (primary) hypertension Status: Chronic Assessment & Plan: Well controlled on amlodipine (5) Hypothyroidism Status: Chronic Assessment & Plan: Continue home Synthroid (6) Prophylactic measure Assessment & Plan: Lovenox Saline Lock Dysphagia diet Will transfer out of ICU today JASON STERLING MD Jul 01, 2017 09:23
[2017-07-01] MEDS: predniSONE 20 MG TAB PO SCH (09:31)
--- NOTE | 2017-07-01 10:15 | Diagnostic Imaging Report ---
INDICATION: Aspiration pneumonia. TECHNIQUE: Single-view chest 5:21 AM. CORRELATION STUDY: 06/30/2017. FINDINGS: Heart size, mediastinum, and vasculature stable. Calcification of the aortic arch. Lungs overall relatively clear. No significant infiltrate or effusion. Multiple overlying monitor leads. Surgical clips noted in the soft tissues of the neck on the right. IMPRESSION: Overall relatively stable chest demonstrates no adverse interval change. Dictated by: Dictated on workstation # [id number]
[2017-07-01] MEDS ORDERED: CLOP75TA28 PO (15:44)
[2017-07-01] MEDS: POLYETHYLENE GLYCOL 17 GM (MIRALAX) PACK PO PRN (20:19)
[2017-07-01] MEDS: PROMETHAZINE/ CODEINE SYRUP 5 ML UDC PO PRN (23:36)
[2017-07-02] VITALS (8 sets, daily range): BP systolic 102–131; BP diastolic 57–74
[2017-07-02] MEDS: RT-ALBUTEROL/IPRATROPIUM 3 ML (DUONEB) VIAL INH SCH ×6 (02:14→21:37)
[2017-07-02 05:52] LABS: BASOPHILS % (AUTO) 0 % (0-10); EOSINOPHILS % (AUTO) 0 % (0-10); LYMPHOCYTES # (AUTO) 1.5 X 10^3 (1.0-4.0); LYMPHOCYTES % (AUTO) 18 % (12-44); MEAN CORPUSCULAR HEMOGLOBIN 25 PG (25-34); MEAN CORPUSCULAR HGB CONC 31 G/DL (32-36); MEAN CORPUSCULAR VOLUME 82 FL (80-99); MEAN PLATELET VOLUME 8.8 FL (7.4-10.4); MONOCYTES # (AUTO) 0.8 X 10^3 (0.0-1.0); MONOCYTES % (AUTO) 9 % (0-12); NEUTROPHILS % (AUTO) 72 % (42-75); PLATELET COUNT 356 10^3/uL (130-400); RED BLOOD COUNT 2.65 10^6/uL (4.35-5.85); RED CELL DISTRIBUTION WIDTH 14.2 % (10.0-14.5); WHITE BLOOD COUNT 8.3 10^3/uL (4.3-11.0)
[2017-07-02] MEDS: inSUlin (REGULAR) HUMAN 1 UNIT/0.01 ML (CHARGE PER UNIT) SC SCH ×4 (05:58→21:53)
[2017-07-02] MEDS: LEVOTHYROXINE 125 MCG (LEVOTHROID) TABLET PO SCH (06:10)
[2017-07-02] MEDS: KCL 10 MEQ TAB (MICRO K) PO SCH ×2 (06:10→16:01)
[2017-07-02] MEDS: predniSONE 20 MG TAB PO SCH (06:10)
[2017-07-02] MEDS: PANTOPRAZOLE 20 MG TABLET (PROTONIX) PO SCH (06:10)
[2017-07-02] MEDS: DOCUSATE SODIUM 100 MG (COLACE) CAP PO PRN (06:13)
[2017-07-02 06:18] LABS: ANION GAP 9 MMOL/L (5-14); BLOOD UREA NITROGEN 11 MG/DL (7-18); BUN/CREATININE RATIO 15; CALCIUM 9.1 MG/DL (8.5-10.1); CARBON DIOXIDE 26 MMOL/L (21-32); CHLORIDE 106 MMOL/L (98-107); CREATININE SERUM 0.73 MG/DL (0.60-1.30); GFR ESTIMATED > 60; GLUCOSE 105 MG/DL (70-105); POTASSIUM 4.2 MMOL/L (3.6-5.0); SODIUM 141 MMOL/L (135-145)
[2017-07-02] MEDS: RT-ADVAIR HFA 115/21 MCG PER PUFF IH SCH (06:40)
--- NOTE | 2017-07-02 07:31 | Pulmonary Consultation ---
History of Present Illness History of Present Illness Date of Consultation 07/02/17 07:26 Time Seen by Provider: 07:26 Date of Admission History of Present Illness 72yo with hx of recent right hip replacement secondary to AVN presented to ED over weekend 06/30 secondary to acute respiratory distress after eating chicken stir coe. Pt was found to have hypoxia with Sp02 of 79%. CT showed no PE however did show bibasilar infiltrates and atelectasis. She was requiring high flow oxygen and BIPAP during weekend and did improve with treatment. She is doing better now and was transferred to 4th floor yesterday 07/01. Pt is doing much better. I am consulted for pulmonary management. Allergies and Home Medications Allergies Coded Allergies: codeine (Verified Allergy, Intermediate, GI UPSET, 06/07/17) morphine (Verified Allergy, Mild, NAUSEA, 06/26/17) metformin (Verified Adverse Reaction, Mild, NAUSEA, DIARRHEA, 06/27/17) Home Medications Amlodipine Besylate 10 Mg Tablet, 10 MG PO DAILY, (Reported) Atorvastatin Calcium 40 Mg Tablet, 40 MG PO DAILY, (Reported) Clopidogrel Bisulfate 75 Mg Tablet, 75 MG PO DAILY, (Reported) Diclofenac Sodium 75 Mg Tablet.dr, 150 MG PO DAILY PRN for BACK PAIN, (Reported) TAKES 2 (75 MG) TABLETS Docusate Sodium 100 Mg Capsule, 200 MG PO BID, (Reported) TAKES 2 (100 MG) CAPSULES Fluticasone/Salmeterol 1 Each Blst.w.dev, 1 PUFF INH DAILY, (Reported) Levothyroxine Sodium 125 Mcg Tablet, 125 MCG PO DAILY, (Reported) Multivitamin 1 Each Tablet, 1 TAB PO DAILY, (Reported) Omeprazole 20 Mg Tablet.dr, 20 MG PO DAILY, (Reported) Paroxetine HCl 30 Mg Tablet, 30 MG PO DAILY, (Reported) Sennosides 25 Mg Tablet, 50 MG PO HS, (Reported) TAKES 2 (25 MG) TABLETS Tramadol HCl 50 Mg Tablet, 50 MG PO QID PRN for PAIN-MODERATE, (Reported) Triamcinolone Acet 15 Gm Cr, TP BID PRN for IRRITATION, (Reported) Past Ficdlur-Ltzhso-Sukwwn Hx Patient Social History Alcohol Use: Denies Use Recreational Drug Use: No Former Smoker, Quit: Jun 07, 2005 Recent Foreign Travel: No Contact w/Someone Who Travel: No Recent Infectious Disease Expo: No Recent Hopitalizations: Yes Immunizations Up To Date PED Vaccines UTD: No Seasonal Allergies Seasonal Allergies: Yes Surgeries History of Surgeries: Yes (RIGHT CAROTID STENT, LEFT CAROTIDECTOMY, MODIFIED NECK DISSECTION, CATARACT) Surgeries: Joint Replacement, Vascular Surgery Respiratory History of Respiratory Disorde: Yes Respiratory Disorders: Asthma, COPD Currently Using CPAP: No Cardiovascular History of Cardiac Disorders: Yes Cardiac Disorders: High Cholesterol, Hypertension Neurological History of Neurological Disord: No Reproductive System Sexually Transmitted Disease: No HIV/AIDS: No Genitourinary History of Genitourinary Disor: No Gastrointestinal History of Gastrointestinal Di: Yes Gastrointestinal Disorders: Gastroesophageal Reflux, Chronic Constipation, Diverticulosis, Polyps Musculoskeletal History of Musculoskeletal Dis: Yes Musculoskeletal Disorders: Osteoporosis, Arthritis Endocrine History of Endocrine Disorders: Yes (DIET CONTROLLED) Endocrine Disorders: Diabetes, Non-Insulin dep HEENT History of HEENT Disorders: Yes (READING GLASSES, DENTURES, DENTAL IMPLANTS) 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: Skin Did You Recieve Any Treatments: Yes Type of Tx Receive: Chemotherapy, Radiation, Surgical Intervention Psychosocial History of Psychiatric Problem: Yes Behavioral Health Disorders: Anxiety, Depression Integumentary History of Skin or Integumenta: No Blood Transfusions History of Blood Disorders: No Adverse Reaction to a Blood Tr: No Family Medical History Family Medial History: BREAST CANCER 19 MOTHER Cardiovascular disease 19 FATHER HODGKINS DISEASE G8 SISTER Hypertension 19 FATHER Myocardial infarction 19 FATHER Review of Systems Time Seen by Provider: 07:46 Constitutional: Fever, Chills, Sweats, Weakness Eyes: No: Pain, Vision change, Conjunctivae inflammation, Eyelid inflammation, Other, Redness ENT: Nose congestion, No: Ear pain, Ear discharge, Nose pain, Nose discharge, Mouth pain, Mouth swelling, Throat pain, Throat swelling, Other Respiratory: Cough, Dry, Shortness of breath, SOB with excertion, Wheezing Cardiovascular: Palpitations, No: Chest Pain, Orthopnea, Paroxysmal Noc. Dyspnea, Edema, Lt Headedness, Other Gastrointestinal: No: Nausea, Vomiting, Abdominal Pain, Diarrhea, Constipation , Melena, Hematochezia, Other Genitourinary: No Dysuria, No Frequency, No Incontinence, No Hematuria, No Retention, No Other Neurological: Weakness Exam Exam Vital Signs Date Time Temp Pulse Resp B/P (MAP) Pulse Ox O2 Delivery O2 Flow Rate FiO2 07/02/17 06:39 97 Nasal Cannula 4.00 07/02/17 04:17 97.9 95 18 111/58 94 Nasal Cannula 4.00 07/02/17 02:14 95 High Flow N/C 4.00 07/02/17 00:12 98.4 95 20 111/61 99 Nasal Cannula 4.00 07/01/17 21:57 97 High Flow N/C 4.00 07/01/17 21:00 High Flow N/C 4.00 07/01/17 19:31 99.1 96 22 102/67 97 Nasal Cannula 4.00 07/01/17 18:59 95 High Flow N/C 4.00 07/01/17 16:34 99.3 07/01/17 15:30 100.2 100 22 119/61 99 Nasal Cannula 4.00 07/01/17 14:20 100 High Flow N/C 4.00 07/01/17 13:00 93 07/01/17 11:40 97.2 106 20 99 High Flow N/C 4.00 07/01/17 10:55 98 High Flow N/C 4.00 07/01/17 08:00 99 Vapotherm 12.00 35 General Appearance: No Apparent Distress, WD/WN HEENT: PERRL/EOMI, Moist Mucous Membranes, No Scleral Icterus (L), No Scleral Icterus (R) Respiratory: No Respiratory Distress, Wheezing (expiratory) Cardiovascular: Regular Rate, Rhythm, No Murmur Capillary Refill: Less Than 3 Seconds Extremity: Non Tender, No Calf Tenderness Neurologic/Psychiatric: Alert, Oriented x3 Skin: Normal Color, Warm/Dry Results Lab Laboratory Tests 07/01/17 04:58 07/02/17 05:29 Assessment/Plan Assessment/Plan Aspiration pneumonia with acute bronchitis -prednisone taper -Pt is currently improving on Levaquin -SVNs Hypoxemia -Oxygen - titrate for Sp02 90-95% -Titrate - Pt does not have home oxygen or hx of COPD 254 Diagnosis/Problems Problems/Diagonsis (1) Aspiration pneumonia Status: Acute Assessment & Plan: Pneumonia vs pneumonitis Leukocytosis and fever resolved Continue Levaquin MAT protocol Vapotherm, titrate as able CERTIFIED BREASTFEEDING EDUCATOR eval ordered Still wheezing shortly after DuoNebs so will add steroid burst Pulm consulted (2) Normocytic anemia Status: Acute Assessment & Plan: Postoperative, dropped ~1 point today trend, may need transfusion Consider IV iron if afebrile tomorrow still (3) 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 Assessment & Plan: s/p right hip replacement PT/OT Lortab and Tramadol prn pain (4) Essential (primary) hypertension Status: Chronic Assessment & Plan: Well controlled on amlodipine (5) Hypothyroidism Status: Chronic Assessment & Plan: Continue home Synthroid (6) Prophylactic measure Assessment & Plan: Lovenox Saline Lock Dysphagia diet Will transfer out of ICU today Clinical Quality Measures DVT/VTE Risk/Contraindication: Risk Factor Score Per Nursin RFS Level Per Nursing on Admit: 2=Moderate ROBEL JONES DO Jul 02, 2017 07:31
[2017-07-02] MEDS: LEVOFLOXACIN 750 MG/150 ML IV 150 ML IV SCH (08:35)
[2017-07-02] MEDS: PARoxetine 10 MG (PAXIL) TAB PO SCH (08:35)
[2017-07-02] MEDS: BACLOFEN 10 MG (LIORESAL) TAB PO SCH ×3 (08:36→20:45)
[2017-07-02] MEDS: CLOPIDOGREL 75 MG (PLAVIX) TABLET PO SCH (08:36)
[2017-07-02] MEDS: FAMOTIDINE 20 MG (PEPCID) TABLET PO SCH (08:36)
[2017-07-02] MEDS: amLODIPine 10 MG (NORVASC) TAB PO SCH (08:36)
[2017-07-02] MEDS: SENNA W/DOCUSATE (SENOKOT S) TABLET PO SCH ×2 (08:36→20:45)
[2017-07-02] MEDS ORDERED: NS IV 500 ML 500 ML ONE (09:12)
--- NOTE | 2017-07-02 09:21 | Progress Note-Hospitalist ---
Progress Note HPI/CC on Admission Pt is a 72yoCF with recent right hip replacement due to AVN admitted to ICU form IRU for acute onset respiratory distress last night. Per patient reports she was eating chicken stir coe and had significant coughing while eating it. Shortly afterward her nurse went to her room to assess her and found her to have an oxygen sauration of 79%, HR in the 110s, and febrile. I was notified at this time and a CTA chest was ordered to rule out PE and she was given a 1x dose of therapeutic lovenox. CTA was done and showed no PE but was significant for aspiration pneumonia. She continued to require more oxygen eventually necessitating Vapotherm. She was transferred from IRU to ICU for stabilization and ultimately ended upon BiPAP. I order MAT Protocol, Solu-Medrol and Levaquin. She responded well to this and was taken off of BiPAP shortly upon arrival to ICU. She feels she is breathing better this morning but has shortness of breath. She acknowledges need for diet restriction given concerns for aspiration. Progress Notes/Assess & Plan Date Seen 07/02/17 Time Seen by Provider: 09:00 Diagonsis/Assessment & Plan Patient doing better, wheezing noted but subtle and much improved Working with PT/OT Receiving 2 units of blood today Checked meds and labs Pt having BM. Dysphagia diet tolerated AFVSS, Pleasant, O x 3 Taking shower RRR, CTAB except subtle wheezing noted all gonsales but improved No edema Laboratory Tests 07/02/17 05:29 (1) Aspiration pneumonia Status: Acute Assessment & Plan: Pneumonia vs pneumonitis Leukocytosis and fever resolved Continue Levaquin MAT protocol Vapotherm, titrated off PROTECTIVE SERVICE SPECIALIST eval ordered Still wheezing shortly after DuoNebs so added steroid burst Pulm consulted (2) Normocytic anemia Status: Acute Assessment & Plan: Postoperative, dropped to 6.7 and receiving 2 units of blood now (3) 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 Assessment & Plan: s/p right hip replacement PT/OT Lortab and Tramadol prn pain (4) Essential (primary) hypertension Status: Chronic Assessment & Plan: Well controlled on amlodipine (5) Hypothyroidism Status: Chronic Assessment & Plan: Continue home Synthroid (6) Prophylactic measure Assessment & Plan: Lovenox Saline Lock Dysphagia diet Will keep on 4th floor today then transfer to IRU tomorrow ROLDAN DOTSON DO Jul 02, 2017 09:21
[2017-07-02] MEDS: ETODOLAC 300 MG (LODINE) CAP PO SCH ×2 (09:40→20:45)
--- NOTE | 2017-07-02 10:56 | ST Dysphagia Evaluation ---
Speech Evaluation-General Medical Diagnosis Pneumonia s/p hip replacement. Onset Date: Jun 26, 2017 Therapy Diagnosis Therapy Diagnosis: Oropharyngeal Swallow Grossly WNL Precautions Precautions: Aspiration Precautions/Isolations: Aspiration Referral Referring Physician: Dr. Powell Reason for Referral: Evaluation/Treatment Clinical Bedside Swallowing Evaluation Medical History Pertinent Medical History: HTN Reviewed History: Yes Social History Current Living Status: Spouse Speech PLF/Current-Dysphagia Prior Level of Function Per patient, she has experienced difficulty swallowing dry, tough consistencies (such as bread, large medication, and dry meat) since receiving radiation treatment for a past head and neck cancer. The patient stated her lack of saliva causes these consistencies to "stick" in her throat. The patient stated she is able to clear the globus sensation with a subsequent drink of thin liquid. Subjective The patient was recently admitted to [facility] following a right hip replacement. Throughout her hospitalization, the patient developed pneumonia and aspiration is suspected as the cause. The patient was seated upright in bed upon entrance. The patient greeted the clinician and was agreeable to the dysphagia evaluation. Per patient, "I am so ready to get off this mush. I don't have a real swallowing problem. This is something I have dealt with for years." CXR: 07/01/2017: Stable chest demonstrates no adverse interval change. Oral Motor Skills Dentition: Edentalous Denture Type: Full- Upper (The patient is edentulous lower.) Current Food Consistancy: Mechanical Soft, Thin Liquids Ability to Follow Directions: Good Oral Expression Ability: No Impairment Voice Voice Phonatory-Based Quality: Harsh Voice Pitch: Moderately Low Voice Loudness: Mildly Loud Face Facial Symmetry: Symmetrical Oral-Facial Assessment Oral-Facial Dentition: Normal Labial Seal Description: Normal Smile: Normal Puff Cheeks: Normal Lingual Protrusion: Normal Lingual ROM: Normal Lingual Strength: Normal Pharynx Velopharyngeal Move.: Normal Volitional Dry Swallow: Yes Voluntary Cough: Yes Can Clear Throat Volitionally: Yes Productive Cough: Yes Productive Throat Clear: Yes Dysphagia Evaluation Consistencies Presented: Regular, Thin Liquid, Mechanical Soft, Pureed - No oral impairments were noted throughout the evaluation. - No pharyngeal impairments were noted throughout the evaluation. The patient denied the presence of a bolus sensation. - No signs/symptoms of aspiration were displayed with thin liquids, puree, mechanical soft, or solid consistencies tested. The patient's vocal quality remained clear throughout the assessment. Dietary Recommendations: Regular Liquid Recommendations: Thin Swallowing Precautions: Alternate Liquids/Solids, Small Bites and Sips, Sitting 90 Degrees 30 Post Intake - Moist, slick consistencies. - Crush large medication and place in puree for administration. - Reduce distractions (and talking) throughout PO intake. Dysphagia Evaluation Summary The patient displayed an oropharyngeal swallow function grossly within normal limits. Speech-Plan Treatment Plan Speech Therapy Treatment Plan: Discontinue ST Evaluation, only. Frequency: Modified Program (IRF) (Evaluation, only.) Estimated Hrs Per Day: Other (Evaluation, only.) Rehab Potential: Good Safety Risks/Education Teaching Recipient: Patient Teaching Methods: Discussion Response to Teaching: Verbalize Understanding Education Topics Provided: Results, Recommendations, Plan of Care, Swallowing Strategies Time Speech Therapy Time In: 09:20 Speech Therapy Time Out: 09:40 Total Billed Time: 20 Billed Treatment Time 1, CARMITA KHOURY Jul 02, 2017 10:56
--- NOTE | 2017-07-02 11:20 | Physical Therapy Daily Note ---
PT Daily Note-Current Subjective Patient agrees to PT. Pain Numeric Pain Scale: 3 Location: Right Location Body Site: Hip Pain Description: Acute Mental Status Patient Orientation: Normal For Age Attachments: IV Transfers Functional [place] Measure 0=Not Assessed/NA 4=Minimal Assistance 1=Total Assistance 5=Supervision or Setup 2=Maximal Assistance 6=Modified [place] 3=Moderate Assistance 7=Complete IndependenceIRFPAI Quality Coding Scale 6 Independent with activity with or without an assistive device 5 Patient requires set up or clean up by helper. Patient completes activity by themselves 4 Supervision or touching assist (CGA). [place] provide cues , steadying assist 3 The helper provides less than half the effort to complete the activity 2 The helper provides more than half the effort to complete the activity 1 Dependent. The helper does all the effort to complete an activity 7 Patient refused to complete or attempt activity 9 The patient did not perform the activity before the current illness or injury 88 Not attempted due to Medical conditions or safety concerns Transfers (B, C, W/C) (FIM): 6 Scootin Rollin Supine to/from Sit: 6 Sit to/from Stand: 6 Weight Bearing Weight Bearing Restriction: Weight Bearing/Tolerated Location Restriction: R LE Gait Training Gait (FIM): 5 Distance (FIM): 3=150 ft Distance: 150' Gait Level of Assist: 5 Gait Persons Needed: 1 Gait Assistive Device: FWW safe and functional/reciprocal Exercises Supine Ex: Ankle pumps, Quad Set, Heel Slides, Straight leg raise Supine Reps: 10 (2 sets) Assessment Patient tolerated treatment well and is receiving PRBC. PT to continue to increase activity as tolerated by patient. PT Plan Treatment/Plan Treatment Plan: Continue Plan of Care Treatment Plan: Bed Mobility, Education, Functional Activity Lm, Functional Strength, Gait, Safety, Therapeutic Exercise, Transfers Treatment Duration: Jul 06, 2017 Frequency: 11 times per week Estimated Hrs Per Day: .5 hour per day Patient and/or Family Agrees t: Yes Time/GCodes Time In: 1041 Time Out: 1104 Total Billed Treatment Time: 23 Total Billed Treatment 1 visit GT 10 min EX 13 min REYNALDO ROBERTS PT Jul 02, 2017 11:20
[2017-07-02] MEDS: ENOXAPARIN 40 MG/0.4 ML (LOVENOX) SYR SC SCH (11:37)
--- NOTE | 2017-07-02 12:33 | Occupational Ther Daily Note ---
OT Current Status-Daily Note Subjective No pain reported. However, nursing states that her hemoglobin is low, and that she will be getting blood. Nursing okays for this therapist to assist pt. with quick shower. Appearance Pt. in bed. Requests to shower. States, "I am feeling fine." Mental Status/Objective Patient Orientation: Person, Unable to Assess Functional [place] Measure 0=Not Assessed/NA 4=Minimal Assistance 1=Total Assistance 5=Supervision or Setup 2=Maximal Assistance 6=Modified [place] 3=Moderate Assistance 7=Complete [place] Attachments: IV, Oxygen ADL-Treatment Bathing (FIM): 3 (Pt. did not have adaptive equipment in room to reach feet. Therefore, OT assisted pt. in shower with washing feet and lower legs.) Lower Body Dressing (FIM): 2 (Equipment not available to practice with. Therefore, OT doffed/donned socks for her.) Toileting (FIM): 4 (CGA to shower due to low hemoglobin.) Transfers (B, C, W/C) (FIM): 4 (Into/out of bed.) Shower Transfer(FIM): 4 Other Treatment Pt. tolerated shower well. Stated that "it feels so good." Pt. taken back to bed. Nursing monitoring pt. and pt. to get blood soon. All needs met. Education OT Patient Education: Correct positioning, Modified ADL techniques, Progress toward Goal/Update tx plan, Purpose of tx/functional activities, Reviewed precautions, Rehab process, Transfer techniques Teaching Recipient: Patient Teaching Methods: Demonstration, Discussion Response to Teaching: Verbalize Understanding, Return Demonstration OT Short Term Goals Short Term Goals 1=Demonstrate adherence to instructed precautions during ADL tasks. 2=Patient will verbalize/demonstrate understanding of assistive devices/ modifications for ADL. 3=Patient will improve strength/tolerance for activity to enable patient to perform ADL's. OT Intermediate Goals Clothing Presser Goals Time Frame: Jul 07, 2017 Eating (FIM): 6 Grooming(FIM): 6 Bathing(FIM): 6 Upper Body Dressing(FIM): 6 Lower Body Dressing(FIM): 6 Toileting(FIM): 6 Transfers (B,C,W/C) (FIM): 6 Toilet/Commode Transfer(FIM): 6 Shower Transfer(FIM): 5 Additional Goals: 1-Demonstrate ADL Tasks, 2-Verbalize Understanding, 3- ImproveStrength/Lm 1=Demonstrate adherence to instructed precautions during ADL tasks. 2=Patient will verbalize/demonstrate understanding of assistive devices/ modifications for ADL. 3=Patient will improve strength/tolerance for activity to enable patient to perform ADL's. OT Education/Plan Problem List/Assessment Assessment: Decreased Activ Tolerance, Impaired I ADL's, Impaired Self-Care Skills Discharge Recommendations Plan/Recommendations: Continue POC Therapy D/C Recommendations: Home w/ Family Support, Occupational Therapy Home Care Equpiment Recommendations-D/C: Hip Kit Treatment Plan/Plan of Care Treatment,Training & Education: Yes Patient would benefit from OT for education, treatment and training to promote independence in ADL's, mobility, safety and/or upper extremity function for ADL' s. Plan of Care: ADL Retraining, Functional Mobility Treatment Duration: Jul 07, 2017 Frequency: 5 times per week Estimated Hrs Per Day: .25 hour per day Agreement: Yes Rehab Potential: Good Time/GCodes Start Time: 08:35 Stop Time: 09:10 Total Time Billed (hr/min): 35 Billed Treatment Time 1, ADL x 2 JON CROWELL OT Jul 02, 2017 12:33
--- NOTE | 2017-07-02 13:08 | Physical Therapy Daily Note ---
PT Daily Note-Current Subjective Patient agrees to PT. Patient states she just wants to go home. Pain Numeric Pain Scale: 0-No Pain Location: No Pain Reported Mental Status Patient Orientation: Normal For Age Attachments: IV Transfers Functional [place] Measure 0=Not Assessed/NA 4=Minimal Assistance 1=Total Assistance 5=Supervision or Setup 2=Maximal Assistance 6=Modified [place] 3=Moderate Assistance 7=Complete IndependenceIRFPAI Quality Coding Scale 6 Independent with activity with or without an assistive device 5 Patient requires set up or clean up by helper. Patient completes activity by themselves 4 Supervision or touching assist (CGA). [place] provide cues , steadying assist 3 The helper provides less than half the effort to complete the activity 2 The helper provides more than half the effort to complete the activity 1 Dependent. The helper does all the effort to complete an activity 7 Patient refused to complete or attempt activity 9 The patient did not perform the activity before the current illness or injury 88 Not attempted due to Medical conditions or safety concerns Transfers (B, C, W/C) (FIM): 6 Scootin Rollin Supine to/from Sit: 6 Sit to/from Stand: 6 Weight Bearing Right Lower Extremity: Right Weight Bearing/Tolerated Gait Training Gait (FIM): 6 Distance (FIM): 3=150 ft Distance: 350' Gait Level of Assist: 6 Gait Assistive Device: FWW reciprocal pattern Exercises Seated Therapy Exercises: Ankle pumps, Long arc quads Seated Reps: 15 Assessment Patient toilets self independently in restroom. Making great progress. PT Plan Treatment/Plan Treatment Plan: Continue Plan of Care Treatment Plan: Bed Mobility, Education, Functional Activity Lm, Functional Strength, Gait, Safety, Therapeutic Exercise, Transfers Treatment Duration: Jul 06, 2017 Frequency: 11 times per week Estimated Hrs Per Day: .5 hour per day Patient and/or Family Agrees t: Yes Time/GCodes Time In: 1231 Time Out: 1246 Total Billed Treatment Time: 15 Total Billed Treatment 1 visit GT 15 min REYNALDO ROBERTS PT Jul 02, 2017 13:08
[2017-07-02] MEDS: PROMETHAZINE/ CODEINE SYRUP 5 ML UDC PO PRN ×3 (14:41→23:07)
[2017-07-02] MEDS: BENZONATATE 100 MG (TESSALON) CAPSULE PO PRN (17:33)
[2017-07-02] MEDS: POLYETHYLENE GLYCOL 17 GM (MIRALAX) PACK PO PRN (18:42)
[2017-07-03] VITALS (7 sets, daily range): BP systolic 102–135; BP diastolic 50–79
[2017-07-03] MEDS: RT-ALBUTEROL/IPRATROPIUM 3 ML (DUONEB) VIAL INH SCH ×4 (02:30→21:46)
[2017-07-03] MEDS: PROMETHAZINE/ CODEINE SYRUP 5 ML UDC PO PRN (05:55)
[2017-07-03] MEDS: PANTOPRAZOLE 20 MG TABLET (PROTONIX) PO SCH (05:55)
[2017-07-03] MEDS: LEVOTHYROXINE 125 MCG (LEVOTHROID) TABLET PO SCH (05:56)
[2017-07-03] MEDS: predniSONE 20 MG TAB PO SCH (05:56)
[2017-07-03] MEDS: inSUlin (REGULAR) HUMAN 1 UNIT/0.01 ML (CHARGE PER UNIT) SC SCH ×4 (05:56→21:36)
[2017-07-03] MEDS: KCL 10 MEQ TAB (MICRO K) PO SCH ×2 (05:56→17:05)
[2017-07-03 06:01] LABS: BASOPHILS % (AUTO) 0 % (0-10); EOSINOPHILS # (AUTO) 0.1 10^3/uL (0.0-0.3); EOSINOPHILS % (AUTO) 1 % (0-10); LYMPHOCYTES % (AUTO) 22 % (12-44); MEAN CORPUSCULAR HEMOGLOBIN 26 PG (25-34); MEAN CORPUSCULAR HGB CONC 31 G/DL (32-36); MEAN CORPUSCULAR VOLUME 83 FL (80-99); MEAN PLATELET VOLUME 8.7 FL (7.4-10.4); MONOCYTES # (AUTO) 0.9 X 10^3 (0.0-1.0); MONOCYTES % (AUTO) 10 % (0-12); NEUTROPHILS # (AUTO) 6.4 X 10^3 (1.8-7.8); NEUTROPHILS % (AUTO) 68 % (42-75); PLATELET COUNT 455 10^3/uL (130-400); RED BLOOD COUNT 3.27 10^6/uL (4.35-5.85); RED CELL DISTRIBUTION WIDTH 14.9 % (10.0-14.5); WHITE BLOOD COUNT 9.4 10^3/uL (4.3-11.0)
[2017-07-03 06:11] LABS: ANION GAP 11 MMOL/L (5-14); BLOOD UREA NITROGEN 13 MG/DL (7-18); BUN/CREATININE RATIO 16; CALCIUM 9.4 MG/DL (8.5-10.1); CARBON DIOXIDE 26 MMOL/L (21-32); CHLORIDE 105 MMOL/L (98-107); CREATININE SERUM 0.82 MG/DL (0.60-1.30); GFR ESTIMATED > 60; GLUCOSE 89 MG/DL (70-105); SODIUM 142 MMOL/L (135-145)
[2017-07-03] MEDS: RT-ADVAIR HFA 115/21 MCG PER PUFF IH SCH (07:01)
--- NOTE | 2017-07-03 07:07 | Pulmonary Progress Note ---
Subjective Time Seen by Provider: 07:07 Subjective/Events-last exam pt is doing better. Exam Exam Vital Signs Date Time Temp Pulse Resp B/P (MAP) Pulse Ox O2 Delivery O2 Flow Rate FiO2 07/03/17 07:01 91 Room Air 07/03/17 06:55 90 Room Air 07/03/17 03:43 98.4 85 18 135/78 07/03/17 00:33 98.9 95 19 102/50 95 Nasal Cannula 4.00 07/02/17 21:37 94 Room Air 07/02/17 21:00 Room Air 07/02/17 19:05 99.1 99 16 102/59 95 07/02/17 18:40 96 Room Air 07/02/17 15:21 98.8 88 16 131/57 97 07/02/17 14:16 93 Room Air 07/02/17 12:00 99.0 85 20 121/74 85 Nasal Cannula 4.00 07/02/17 10:50 98.9 94 20 108/57 96 Room Air 07/02/17 10:35 99.0 84 18 121/74 100 Room Air 07/02/17 10:25 98 Nasal Cannula 4.00 07/02/17 08:30 100 Room Air 4.00 07/02/17 08:00 98.7 102 20 107/74 99 Nasal Cannula 4.00 07/02/17 08:00 98.7 102 20 107/74 99 Nasal Cannula 4.00 General Appearance: No Apparent Distress, WD/WN HEENT: PERRL/EOMI, Moist Mucous Membranes, No Scleral Icterus (L), No Scleral Icterus (R) Respiratory: No Respiratory Distress, Wheezing (expiratory) Cardiovascular: Regular Rate, Rhythm, No Murmur Capillary Refill: Less Than 3 Seconds Extremity: Non Tender, No Calf Tenderness Neurologic/Psychiatric: Alert, Oriented x3 Skin: Normal Color, Warm/Dry Results Lab Laboratory Tests 07/02/17 05:29 07/03/17 05:15 Assessment/Plan Assessment/Plan Aspiration pneumonia with acute bronchitis -prednisone taper -Pt is currently improving on Levaquin -SVNs Hypoxemia -Oxygen - titrate for Sp02 90-95% -Titrate - Pt does not have home oxygen or hx of COPD 232 Clinical Quality Measures DVT/VTE Risk/Contraindication: Risk Factor Score Per Nursin RFS Level Per Nursing on Admit: 2=Moderate KAREN,ROBEL M DO Jul 03, 2017 07:07
[2017-07-03] MEDS: PARoxetine 10 MG (PAXIL) TAB PO SCH (08:52)
[2017-07-03] MEDS: ETODOLAC 300 MG (LODINE) CAP PO SCH ×2 (08:52→20:12)
[2017-07-03] MEDS: FAMOTIDINE 20 MG (PEPCID) TABLET PO SCH (08:53)
[2017-07-03] MEDS: BACLOFEN 10 MG (LIORESAL) TAB PO SCH ×3 (08:53→20:11)
[2017-07-03] MEDS: SENNA W/DOCUSATE (SENOKOT S) TABLET PO SCH ×4 (08:53→20:11)
[2017-07-03] MEDS: BENZONATATE 100 MG (TESSALON) CAPSULE PO PRN (08:53)
[2017-07-03] MEDS: CLOPIDOGREL 75 MG (PLAVIX) TABLET PO SCH (08:53)
[2017-07-03] MEDS: amLODIPine 10 MG (NORVASC) TAB PO SCH (08:56)
--- NOTE | 2017-07-03 09:02 | Progress Note-Hospitalist ---
Progress Note HPI/CC on Admission Pt is a 72yoCF with recent right hip replacement due to AVN admitted to ICU form IRU for acute onset respiratory distress last night. Per patient reports she was eating chicken stir coe and had significant coughing while eating it. Shortly afterward her nurse went to her room to assess her and found her to have an oxygen sauration of 79%, HR in the 110s, and febrile. I was notified at this time and a CTA chest was ordered to rule out PE and she was given a 1x dose of therapeutic lovenox. CTA was done and showed no PE but was significant for aspiration pneumonia. She continued to require more oxygen eventually necessitating Vapotherm. She was transferred from IRU to ICU for stabilization and ultimately ended upon BiPAP. I order MAT Protocol, Solu-Medrol and Levaquin. She responded well to this and was taken off of BiPAP shortly upon arrival to ICU. She feels she is breathing better this morning but has shortness of breath. She acknowledges need for diet restriction given concerns for aspiration. Progress Notes/Assess & Plan Date Seen 07/03/17 Time Seen by Provider: 08:30 Diagonsis/Assessment & Plan Patient doing better, wheezing noted but subtle and much improved but overall still having cough that is a problem Did not have home O2 prior to admit No longer a rehab candidate since she is walking very well Working with PT/OT Received 2 units of blood yesterday Checked meds and labs Pt having BM but a little constipated so will add meds Dysphagia diet tolerated and not coughing when eating Abx DC Appreciate Dr Espinosa consultation AFVSS, [place], O x 3 sitting in bed eating bfast RRR, CTAB except subtle wheezing noted all gonsales but improved No edema Laboratory Tests 07/03/17 05:15 (1) Aspiration pneumonia Status: Acute Assessment & Plan: Pneumonia vs pneumonitis Leukocytosis and fever resolved DC Levaquin MAT protocol Vapotherm, titrated off but needs home O2 evaluation Still wheezing so continued steroids Pulm consulted (2) Normocytic anemia Status: Acute Assessment & Plan: Postoperative, dropped to 6.7 and received 2 units of blood yesterday (3) 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 Assessment & Plan: s/p right hip replacement PT/OT Lortab and Tramadol prn pain (4) Essential (primary) hypertension Status: Chronic Assessment & Plan: Well controlled on amlodipine (5) Hypothyroidism Status: Chronic Assessment & Plan: Continue home Synthroid (6) Prophylactic measure Assessment & Plan: Lovenox Saline Lock Dysphagia diet Plan: DC home with HH tomorrow Home O2 evaluation Nebs BM regimen Diagnosis/Problems Diagnosis/Problems (1) Aspiration pneumonia Status: Acute Assessment & Plan: Pneumonia vs pneumonitis Leukocytosis and fever resolved Continue Levaquin MAT protocol Vapotherm, titrate as able TRAILER PARK MANAGER eval ordered Still wheezing shortly after DuoNebs so will add steroid burst Pulm consulted (2) Normocytic anemia Status: Acute Assessment & Plan: Postoperative, dropped ~1 point today trend, may need transfusion Consider IV iron if afebrile tomorrow still (3) 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 Assessment & Plan: s/p right hip replacement PT/OT Lortab and Tramadol prn pain (4) Essential (primary) hypertension Status: Chronic Assessment & Plan: Well controlled on amlodipine (5) Hypothyroidism Status: Chronic Assessment & Plan: Continue home Synthroid (6) Prophylactic measure Assessment & Plan: Lovenox Saline Lock Dysphagia diet Will transfer out of ICU today ROLDAN DOTSON DO Jul 03, 2017 09:02
--- NOTE | 2017-07-03 09:30 | Diagnostic Imaging Report ---
PA and lateral views of the chest. INDICATION: Cough and wheezing. COMPARISON: 07/01/2017. FINDINGS: The lungs are clear. The heart size is normal. No effusion or pneumothorax. The mediastinum and nani appear unremarkable. There are surgical clips seen in the lower right side of the neck. IMPRESSION: Unremarkable exam. Dictated by: Dictated on workstation # [id number]
[2017-07-03] MEDS: BENZONATATE 100 MG (TESSALON) CAPSULE PO SCH ×3 (10:03→20:12)
[2017-07-03] MEDS: LACTULOSE SYRUP 10GM/15ML (ENULOSE) 30ML UDC PO SCH ×2 (10:13→20:12)
--- NOTE | 2017-07-03 11:06 | Physician Query Clarification ---
PQ-Further Specificity Admission/Discharge Admission Date: Jun 30, 2017 at 00:30 Discharge Date: The medical record reflects the following clinical scenario: History/Risk Factors: Recent right hip joint replacement for avascular necrosis. Clinical Findings: Hgb of 8.7/hematocrit 27 on admission with drop to hgb of 6.7/hematocrit 22. Treatment: Blood transfusion Question: Can you further specify Acute Normocytic Anemia per the clinical indicators above? Please document below. 1. Acute normocytic anemia due to acute blood loss from joint replacement surgery. 2. Post op anemia unspecified. 3. Other, with explanation of the clinical findings. 4. Clinically undetermined, no explanation for the clinical findings. PHYSICIAN RESPONSE Can you specify per above: 1 In responding to this query, please exercise your independent professional judgment. The purpose of this communication is to more accurately reflect the complexity of your patients condition. The fact that a question is asked does not imply that any particular answer is desired or expected. Thank you for your timely response to this clarification. Requestors name: Linnette Lopez [facility] Phone # ext [phone] or [phone] THIS PHYSICIAN QUERY FORM IS A PERMANENT PART OF THE MEDICAL RECORD LINNETTE LOPEZ Jul 03, 2017 11:06 ROLDAN DOTSON DO Jul 04, 2017 11:04
[2017-07-03] MEDS: LEVOFLOXACIN 750 MG TAB (LEVAQUIN) PO SCH (11:11)
[2017-07-03] MEDS: ENOXAPARIN 40 MG/0.4 ML (LOVENOX) SYR SC SCH (11:12)
[2017-07-03] MEDS: ACETAMINOPHEN 500 MG TAB (TYLENOL) PO PRN (11:47)
--- NOTE | 2017-07-03 12:04 | Physical Therapy Daily Note ---
PT Daily Note-Current Subjective Agreeable. Reports she is going home tomorrow and agrees to [facility] PT. Transfers Functional [place] Measure 0=Not Assessed/NA 4=Minimal Assistance 1=Total Assistance 5=Supervision or Setup 2=Maximal Assistance 6=Modified [place] 3=Moderate Assistance 7=Complete IndependenceIRFPAI Quality Coding Scale 6 Independent with activity with or without an assistive device 5 Patient requires set up or clean up by helper. Patient completes activity by themselves 4 Supervision or touching assist (CGA). [place] provide cues , steadying assist 3 The helper provides less than half the effort to complete the activity 2 The helper provides more than half the effort to complete the activity 1 Dependent. The helper does all the effort to complete an activity 7 Patient refused to complete or attempt activity 9 The patient did not perform the activity before the current illness or injury 88 Not attempted due to Medical conditions or safety concerns Weight Bearing Right Lower Extremity: Right Weight Bearing/Tolerated Treatments Pt was leaving her bathroom upon PT entry. Pt using FWW and ambulating Mod indep. Pt ambulated with this therapist 200 ft x 2 with FWW mod indep but with skilled cues for safety and posture. Instructed in and pt performed up/down 4 steps with sBA with cues for sequencing. Reviewed hip precautions and safety with patient. Assessment Current Status: Good Progress Pt is mod indep iwth mobility and appears ready for discharge tomorrow. She is a bit impulsive which I believe is her nature. She has made good gains with PT. PT Plan Problem List Problem List: Activity Tolerance, Functional Strength, Safety Treatment/Plan Treatment Plan: Continue Plan of Care Treatment Plan: Bed Mobility, Education, Functional Activity Lm, Functional Strength, Gait, Safety, Therapeutic Exercise, Transfers Treatment Duration: Jul 06, 2017 Frequency: 11 times per week Estimated Hrs Per Day: .5 hour per day Patient and/or Family Agrees t: Yes Safety Risks/Education Patient Education: Transfer Techniques, Steps, Safety Issues Teaching Recipient: Patient Teaching Methods: Demonstration, Discussion Response to Teaching: Return Demonstration Discharge Recommendations Therapy D/C Recommendations: Physical Therapy Home Care Time/GCodes Time In: 1135 Time Out: 1203 Total Billed Treatment Time: 28 Total Billed Treatment visit GT 28 DANIEL GILLESPIE PT Jul 03, 2017 12:04
--- NOTE | 2017-07-03 12:39 | Occupational Ther Daily Note ---
OT Current Status-Daily Note Subjective Pt agrees to therapy this morning. States she thinks she will be going home with [facility] tomorrow, but isn't sure. Mental Status/Objective Functional [place] Measure 0=Not Assessed/NA 4=Minimal Assistance 1=Total Assistance 5=Supervision or Setup 2=Maximal Assistance 6=Modified [place] 3=Moderate Assistance 7=Complete [place] ADL-Treatment Pt is in the shower when therapist arrives. Pt requests assistance to wash feet as she has hip precautions and does not have a long handled sponge. Assisted pt to wash/dry feet. Pt is able to wash/dry all other areas. Transfer out of shower with modified independence. Don hospital gown with set up. Pt states she does not have any other clothing to put on at this time. Transfer to chair with modified independence. Reviewed use of sock aid to don socks. Pt able to don socks with modified independence using sock aid. Education provided regarding where to obtain adaptive equipment for LE dressing. Pt states understanding of education and has no questions at this time. Pt sitting in chair with needs met after session. OT Short Term Goals Short Term Goals 1=Demonstrate adherence to instructed precautions during ADL tasks. 2=Patient will verbalize/demonstrate understanding of assistive devices/ modifications for ADL. 3=Patient will improve strength/tolerance for activity to enable patient to perform ADL's. OT Behavioral Health Technician Goals Behavioral Health Technician Goals Time Frame: Jul 07, 2017 Eating (FIM): 6 Grooming(FIM): 6 Bathing(FIM): 6 Upper Body Dressing(FIM): 6 Lower Body Dressing(FIM): 6 Toileting(FIM): 6 Transfers (B,C,W/C) (FIM): 6 Toilet/Commode Transfer(FIM): 6 Shower Transfer(FIM): 5 Additional Goals: 1-Demonstrate ADL Tasks, 2-Verbalize Understanding, 3- ImproveStrength/Lm 1=Demonstrate adherence to instructed precautions during ADL tasks. 2=Patient will verbalize/demonstrate understanding of assistive devices/ modifications for ADL. 3=Patient will improve strength/tolerance for activity to enable patient to perform ADL's. OT Education/Plan Discharge Recommendations Plan/Recommendations: Continue POC Treatment Plan/Plan of Care Patient would benefit from OT for education, treatment and training to promote independence in ADL's, mobility, safety and/or upper extremity function for ADL' s. Plan of Care: ADL Retraining, Functional Mobility Treatment Duration: Jul 07, 2017 Frequency: 5 times per week Estimated Hrs Per Day: .25 hour per day Agreement: Yes Rehab Potential: Good Time/GCodes Start Time: 10:24 Stop Time: 10:48 Total Time Billed (hr/min): 24 Billed Treatment Time 1 visit, ADLx2(24minutes) FRANCISCO RAMIREZ OT Jul 03, 2017 12:39
--- NOTE | 2017-07-03 14:23 | Physical Therapy Daily Note ---
PT Daily Note-Current Subjective Patient agrees to PT. No c/o at this time. Pain Numeric Pain Scale: 0-No Pain Location: No Pain Reported Mental Status Patient Orientation: Normal For Age Transfers Functional [place] Measure 0=Not Assessed/NA 4=Minimal Assistance 1=Total Assistance 5=Supervision or Setup 2=Maximal Assistance 6=Modified [place] 3=Moderate Assistance 7=Complete IndependenceIRFPAI Quality Coding Scale 6 Independent with activity with or without an assistive device 5 Patient requires set up or clean up by helper. Patient completes activity by themselves 4 Supervision or touching assist (CGA). [place] provide cues , steadying assist 3 The helper provides less than half the effort to complete the activity 2 The helper provides more than half the effort to complete the activity 1 Dependent. The helper does all the effort to complete an activity 7 Patient refused to complete or attempt activity 9 The patient did not perform the activity before the current illness or injury 88 Not attempted due to Medical conditions or safety concerns Transfers (B, C, W/C) (FIM): 6 Scootin Sit to/from Stand: 6 Weight Bearing Right Lower Extremity: Right Weight Bearing/Tolerated Gait Training Gait (FIM): 6 Distance (FIM): 3=150 ft Distance: 400' Gait Level of Assist: 6 Gait Assistive Device: FWW safe and functional Exercises Supine Ex: Ankle pumps, Quad Set Supine Reps: 25 (in recliner with bilateral LE elevated) Seated Therapy Exercises: Ankle pumps, Long arc quads, Hip flexion Seated Reps: 20 Assessment Current Status: Excellent Progress PT Plan Treatment/Plan Treatment Plan: Continue Plan of Care Treatment Plan: Bed Mobility, Education, Functional Activity Lm, Functional Strength, Gait, Safety, Therapeutic Exercise, Transfers Treatment Duration: Jul 06, 2017 Frequency: 11 times per week Estimated Hrs Per Day: .5 hour per day Patient and/or Family Agrees t: Yes Discharge Recommendations Therapy D/C Recommendations: Home w/ Family Support, Physical Therapy Home Care Time/GCodes Time In: 1336 Time Out: 1359 Total Billed Treatment Time: 23 Total Billed Treatment 1 visit EX 10 min GT 13 min REYNALDO ROBERTS PT Jul 03, 2017 14:22
[2017-07-04] VITALS: BP 105/58
[2017-07-04 04:00] VITALS: BP 96/58
[2017-07-04] MEDS: PROMETHAZINE/ CODEINE SYRUP 5 ML UDC PO PRN (04:21)
[2017-07-04] MEDS: inSUlin (REGULAR) HUMAN 1 UNIT/0.01 ML (CHARGE PER UNIT) SC SCH ×2 (05:32→11:57)
[2017-07-04 06:10] LABS: BASOPHILS % (AUTO) 0 % (0-10); EOSINOPHILS # (AUTO) 0.1 10^3/uL (0.0-0.3); EOSINOPHILS % (AUTO) 1 % (0-10); LYMPHOCYTES # (AUTO) 2.1 X 10^3 (1.0-4.0); LYMPHOCYTES % (AUTO) 23 % (12-44); MEAN CORPUSCULAR HEMOGLOBIN 26 PG (25-34); MEAN CORPUSCULAR HGB CONC 31 G/DL (32-36); MEAN CORPUSCULAR VOLUME 84 FL (80-99); MEAN PLATELET VOLUME 8.5 FL (7.4-10.4); MONOCYTES # (AUTO) 0.9 X 10^3 (0.0-1.0); MONOCYTES % (AUTO) 9 % (0-12); NEUTROPHILS # (AUTO) 6.1 X 10^3 (1.8-7.8); NEUTROPHILS % (AUTO) 67 % (42-75); PLATELET COUNT 416 10^3/uL (130-400); RED BLOOD COUNT 3.14 10^6/uL (4.35-5.85); RED CELL DISTRIBUTION WIDTH 15.1 % (10.0-14.5); WHITE BLOOD COUNT 9.1 10^3/uL (4.3-11.0)
[2017-07-04] MEDS: LEVOTHYROXINE 125 MCG (LEVOTHROID) TABLET PO SCH (06:18)
[2017-07-04] MEDS: PANTOPRAZOLE 20 MG TABLET (PROTONIX) PO SCH (06:18)
[2017-07-04] MEDS: predniSONE 20 MG TAB PO SCH (06:18)
[2017-07-04] MEDS: KCL 10 MEQ TAB (MICRO K) PO SCH (06:18)
[2017-07-04 06:32] LABS: ALANINE AMINOTRANSFERASE 16 U/L (0-55); ALBUMIN 3.1 GM/DL (3.2-4.5); ANION GAP 9 MMOL/L (5-14); ASPARTATE AMINO TRANSFERASE 23 U/L (5-34); BILIRUBIN,TOTAL 0.4 MG/DL (0.1-1.0); BLOOD UREA NITROGEN 12 MG/DL (7-18); BUN/CREATININE RATIO 16; CALCIUM 8.8 MG/DL (8.5-10.1); CARBON DIOXIDE 28 MMOL/L (21-32); CHLORIDE 104 MMOL/L (98-107); CREATININE SERUM 0.77 MG/DL (0.60-1.30); GFR ESTIMATED > 60; GLUCOSE 89 MG/DL (70-105); POTASSIUM 3.6 MMOL/L (3.6-5.0); SODIUM 141 MMOL/L (135-145); TOTAL PROTEIN 6.2 GM/DL (6.4-8.2)
--- NOTE | 2017-07-04 06:51 | Pulmonary Progress Note ---
Subjective Time Seen by Provider: 06:51 Subjective/Events-last exam pt is improving no complications noted. Exam Exam Vital Signs Date Time Temp Pulse Resp B/P (MAP) Pulse Ox O2 Delivery O2 Flow Rate FiO2 07/04/17 04:00 97.6 80 22 96/58 92 07/04/17 00:00 97.5 88 20 105/58 92 Room Air 07/03/17 21:46 93 Room Air 07/03/17 20:00 98.4 96 20 108/68 94 Room Air 07/03/17 20:00 Room Air 07/03/17 18:58 98.4 96 20 108/68 94 Room Air 07/03/17 16:28 98.4 80 18 123/58 98 Nasal Cannula 4.00 07/03/17 12:00 98.4 80 18 123/58 98 Nasal Cannula 4.00 07/03/17 10:04 82 94 07/03/17 10:00 94 Room Air 07/03/17 09:00 High Flow N/C 4.00 07/03/17 08:00 98.4 110 18 116/79 94 Nasal Cannula 4.00 07/03/17 07:01 91 Room Air 07/03/17 06:55 90 Room Air General Appearance: No Apparent Distress, WD/WN HEENT: PERRL/EOMI, Moist Mucous Membranes, No Scleral Icterus (L), No Scleral Icterus (R) Respiratory: No Respiratory Distress, Wheezing (expiratory) Cardiovascular: Regular Rate, Rhythm, No Murmur Capillary Refill: Less Than 3 Seconds Extremity: Non Tender, No Calf Tenderness Neurologic/Psychiatric: Alert, Oriented x3 Skin: Normal Color, Warm/Dry Results Lab Laboratory Tests 07/03/17 05:15 07/04/17 05:15 Assessment/Plan Assessment/Plan Aspiration pneumonia with acute bronchitis -prednisone taper - Levaquin -- d/c'd -SVNs Hypoxemia -Oxygen -pt is on RA currently - RT ambulatory desaturation testing -- pt does not need oxygen per testing -Titrate - Pt does not have home oxygen or hx of COPD PT is ok from pulmonary standpoint for discharge. Will see in f/u in 2-3 wks 232 Clinical Quality Measures DVT/VTE Risk/Contraindication: Risk Factor Score Per Nursin RFS Level Per Nursing on Admit: 2=Moderate ROBEL JONES DO Jul 04, 2017 06:51
[2017-07-04 08:08] VITALS: BP 128/69
[2017-07-04] MEDS: FAMOTIDINE 20 MG (PEPCID) TABLET PO SCH (08:40)
[2017-07-04] MEDS: LACTULOSE SYRUP 10GM/15ML (ENULOSE) 30ML UDC PO SCH (08:40)
[2017-07-04] MEDS: CLOPIDOGREL 75 MG (PLAVIX) TABLET PO SCH (08:41)
[2017-07-04] MEDS: ETODOLAC 300 MG (LODINE) CAP PO SCH (08:41)
[2017-07-04] MEDS: ACETAMINOPHEN 500 MG TAB (TYLENOL) PO PRN (08:41)
[2017-07-04] MEDS: BENZONATATE 100 MG (TESSALON) CAPSULE PO SCH (08:42)
[2017-07-04] MEDS: SENNA W/DOCUSATE (SENOKOT S) TABLET PO SCH ×2 (08:42→09:18)
[2017-07-04] MEDS: BACLOFEN 10 MG (LIORESAL) TAB PO SCH (08:42)
[2017-07-04] MEDS: amLODIPine 10 MG (NORVASC) TAB PO SCH (08:42)
[2017-07-04] MEDS: PARoxetine 10 MG (PAXIL) TAB PO SCH (08:50)
[2017-07-04] MEDS: RT-ALBUTEROL/IPRATROPIUM 3 ML (DUONEB) VIAL INH SCH (09:59)
[2017-07-04] MEDS: RT-ADVAIR HFA 115/21 MCG PER PUFF IH SCH (09:59)
[2017-07-04] MEDS ORDERED: PRED10TA22 PO (10:40)
[2017-07-04] MEDS ORDERED: LEVO750T39 PO (10:40)
[2017-07-04] MEDS ORDERED: HYDR-3820 PO (10:40)
[2017-07-04] MEDS ORDERED: BENZ-36 PO (10:40)
[2017-07-04] MEDS ORDERED: BACL10TA PO (10:40)
--- NOTE | 2017-07-04 10:43 | D/C HH Face to Face Order ---
D/C Face to Face Orders Instructions for Patient Patient Instructions/FollowUp: maintain appt with Dr Morris 07/17/17 as scheduled Physician to follow Patient: Dr Erasmo Morris Discharge Diet for Home: No Restrictions Patient Problems: Hip fracture Aspiration pneumonia COPD Patient Data-Allergies,Ht & Wt Patient Allergies: Coded Allergies: codeine (Verified Allergy, Intermediate, GI UPSET, 06/07/17) morphine (Verified Allergy, Mild, NAUSEA, 06/26/17) metformin (Verified Adverse Reaction, Mild, NAUSEA, DIARRHEA, 06/27/17) Height (Feet): 5 Height (Inches): 7.00 Weight (Pounds): 207 Weight (Ounces): 8.0 Home Health Need/Face to Face Date of Face to Face: Jul 04, 2017 Clinical Findings: Generalized weakness and fatigue, Muscle weakness, Pain with ambulation, Unsteady gait I have seen Pt [id number]: Yes Discharged To: Home Diagnosis/Conditions: Hip fracture Aspiration pneumonia COPD Problems/Diagnosis/Condition: Patient is Homebound due to: Jessica fall risk due to instabilty, Pain w/ ambulation, Shortness of breath/distress Homebound Status Due to the above stated illness, injury or surgical procedure (medical condition or diagnosis) and associated clinical findings, the patient is homebound because of his/her inability to leave home except with aid of a supportive device and/or person AND leaving the home requires a considerable and taxing effort or is medically contraindicated. Pt req the following assistanc: Walker Home Health Nursing Orders Home Health Services Order: Nursing Services, Security Operations Analyst-Evaluate & Treat, Physical Therapy-Evaluate & Treat Home Health Infusion Therapy Line Type: Saline Lock Site Location: Hand Certify Stmt I certify that this patient is under my care and that I, a nurse practitioner or a physician; a assistant professor of biochemistry working with me, had a face to face encounter that - meets the physician face to face encounter requirements with this patient as dated. ROLDAN DOTSON DO Jul 04, 2017 10:43
--- NOTE | 2017-07-04 10:45 | Discharge Summary-Hospitalist ---
Diagnosis/Chief Complaint Date of Admission Jun 30, 2017 at 00:30 Date of Discharge Admission Diagnosis Aspiration Pneumonia Discharge Diagnosis Patient doing better, wheezing noted but subtle and much improved but overall still having cough that is a problem Did not have home O2 prior to admit No longer a rehab candidate since she is walking very well Working with PT/OT Received 2 units of blood yesterday Checked meds and labs Pt having BM but a little constipated so will add meds Dysphagia diet tolerated and not coughing when eating Abx DC Appreciate Dr Espinosa consultation AFVSS, [place], O x 3 sitting in bed eating bfast RRR, CTAB except subtle wheezing noted all gonsales but improved No edema Laboratory Tests 07/03/17 05:15 (1) Aspiration pneumonia Status: Acute Assessment & Plan: Pneumonia vs pneumonitis Leukocytosis and fever resolved DC Levaquin MAT protocol Vapotherm, titrated off but needs home O2 evaluation Still wheezing so continued steroids Pulm consulted (2) Normocytic anemia Status: Acute Assessment & Plan: Postoperative, dropped to 6.7 and received 2 units of blood yesterday (3) 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 Assessment & Plan: s/p right hip replacement PT/OT Lortab and Tramadol prn pain (4) Essential (primary) hypertension Status: Chronic Assessment & Plan: Well controlled on amlodipine (5) Hypothyroidism Status: Chronic Assessment & Plan: Continue home Synthroid (6) Prophylactic measure Assessment & Plan: Lovenox Saline Lock Dysphagia diet Plan: DC home with HH tomorrow Home O2 evaluation Nebs BM regimen Notes from 07/04/17 Vonda Rodriguez Chart Review: No fever Vitals stable O2 93 on room air WBC 9 Hgb 8.1 SW Review: Home O2 not needed because pt is 92% on room air. This was seen on Dr. Carroll note Patient Interview: Pt was showering upon interview. Pt states she was sweaty so she required a shower Pt confirms that her will be coming to get her upon DC Physical exam stable. Lungs sound much better Pt states that the Tessalon has helped her greatly Pt confirms PCP as Erasmo Morris Plan: [facility] [place], [place] Tessalon Follow up with PCP PT Home health Scribed by Kayla De La Paz under the direct supervision of Dr. Dotson. (1) Aspiration pneumonia Onset Date: ~ 06/30/2017 Status: Resolved Assessment & Plan: Pneumonia vs pneumonitis Leukocytosis and fever resolved Continue Levaquin MAT protocol Vapotherm, titrate as able CLOCK REPAIRER eval ordered Still wheezing shortly after DuoNebs so will add steroid burst Pulm consulted (2) Normocytic anemia Status: Acute Assessment & Plan: Postoperative, dropped ~1 point today trend, may need transfusion Consider IV iron if afebrile tomorrow still (3) 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 Assessment & Plan: s/p right hip replacement PT/OT Lortab and Tramadol prn pain (4) Essential (primary) hypertension Status: Chronic Assessment & Plan: Well controlled on amlodipine (5) Hypothyroidism Status: Chronic Assessment & Plan: Continue home Synthroid (6) Prophylactic measure Status: Resolved Assessment & Plan: Lovenox Saline Lock Dysphagia diet Will transfer out of ICU today Discharge Summary Discharge Physical Examination Allergies: Coded Allergies: codeine (Verified Allergy, Intermediate, GI UPSET, 06/07/17) morphine (Verified Allergy, Mild, NAUSEA, 06/26/17) metformin (Verified Adverse Reaction, Mild, NAUSEA, DIARRHEA, 06/27/17) Vitals & I&Os Vital Signs Date Time Temp Pulse Resp B/P (MAP) Pulse Ox O2 Delivery O2 Flow Rate FiO2 07/04/17 09:59 93 Room Air 07/04/17 08:08 98.7 84 20 128/69 07/03/17 16:28 4.00 07/01/17 08:00 35 Hospital Course Hospital course: patient had a short hospital course after aspirating on stir coe while in IRU recovering from hip fracture repair. She was placed on abx empirically along with Neb treatments and required Vapotheram due to AECOPD along with prednisone initiation for wheezing. She tolerated ICU course without decline and was transferred to 4th floor and was placed on Tessalon Pearles with good improvement of her cough. Hgb drop to 6 required 2 units of blood that were given without difficulty. Pt was ready for DC with HH and did not meet criteria for home O2. She will have close f/u with Dr Morris on 07/17/17. Labs (last 24 hrs) Laboratory Tests 07/03/17 11:25: Glucometer 148H 07/03/17 16:00: Glucometer 114H 07/03/17 20:36: Glucometer 109 07/04/17 05:15: White Blood Count 9.1, Red Blood Count 3.14L, Hemoglobin 8.1L, Hematocrit 26L, Mean Corpuscular Volume 84, Mean Corpuscular Hemoglobin 26, Mean Corpuscular Hemoglobin Concent 31L, Red Cell Distribution Width 15.1H, Platelet Count 416H, Mean Platelet Volume 8.5, Neutrophils (%) (Auto) 67, Lymphocytes (%) (Auto) 23, Monocytes (%) (Auto) 9, Eosinophils (%) (Auto) 1, Basophils (%) (Auto) 0, Neutrophils # (Auto) 6.1, Lymphocytes # (Auto) 2.1, Monocytes # (Auto) 0.9, Eosinophils # (Auto) 0.1, Basophils # (Auto) 0.0, Sodium Level 141, Potassium Level 3.6, Chloride Level 104, Carbon Dioxide Level 28, Anion Gap 9, Blood Urea Nitrogen 12, Creatinine 0.77, Estimat Glomerular Filtration Rate > 60, BUN/ Creatinine Ratio 16, Glucose Level 89, Calcium Level 8.8, Total Bilirubin 0.4, Aspartate Amino Transf (AST/SGOT) 23, Alanine Aminotransferase (ALT/SGPT) 16, Alkaline Phosphatase 79, Total Protein 6.2L, Albumin 3.1L 07/04/17 05:23: Glucometer 88 Microbiology 06/30/17 Blood Culture - Preliminary, Resulted No growth 06/30/17 Gram Stain - Final, Complete 06/30/17 Sputum Culture - Final, Complete Usual/normal ivette isolated. Pending Labs Laboratory Tests 07/04/17 05:15: White Blood Count 9.1, Red Blood Count 3.14, Hemoglobin 8.1, Hematocrit 26, Mean Corpuscular Volume 84, Mean Corpuscular Hemoglobin 26, Mean Corpuscular Hemoglobin Concent 31, Red Cell Distribution Width 15.1, Platelet Count 416, Mean Platelet Volume 8.5, Neutrophils (%) (Auto) 67, Lymphocytes (%) (Auto) 23, Monocytes (%) (Auto) 9, Eosinophils (%) (Auto) 1, Basophils (%) (Auto) 0, Neutrophils # (Auto) 6.1, Lymphocytes # (Auto) 2.1, Monocytes # (Auto) 0.9, Eosinophils # (Auto) 0.1, Basophils # (Auto) 0.0, Sodium Level 141, Potassium Level 3.6, Chloride Level 104, Carbon Dioxide Level 28, Anion Gap 9, Blood Urea Nitrogen 12, Creatinine 0.77, Estimat Glomerular Filtration Rate > 60, BUN/ Creatinine Ratio 16, Glucose Level 89, Calcium Level 8.8, Total Bilirubin 0.4, Aspartate Amino Transf (AST/SGOT) 23, Alanine Aminotransferase (ALT/SGPT) 16, Alkaline Phosphatase 79, Total Protein 6.2, Albumin 3.1 07/04/17 05:23: Glucometer 88 Discharge Home Medications: Active Scripts Active Prednisone 10 Mg Tab.ds.pk 10 Mg PO DAILY Benzonatate 100 Mg Capsule 200 Mg PO TID Hydrocodon-Acetaminophn 10-325 (Hydrocodone/Acetaminophen) 1 Each Tablet 1 Ea PO Q4H PRN Baclofen 10 Mg Tablet 10 Mg PO TID Levofloxacin 750 Mg Tablet 750 Mg PO DAILY@1100 Reported Clopidogrel (Clopidogrel Bisulfate) 75 Mg Tablet 75 Mg PO DAILY Triamcinolone Acetonide 0.1% Cream (Triamcinolone Acet) 15 Gm Cr TP BID PRN Omeprazole 20 Mg Tablet.dr 20 Mg PO DAILY Advair 250-50 Diskus (Fluticasone/Salmeterol) 1 Each Blst.w.dev 1 Puff INH DAILY Diclofenac Sodium 75 Mg Tablet.dr 150 Mg PO DAILY PRN TAKES 2 (75 MG) TABLETS Tramadol HCl 50 Mg Tablet 50 Mg PO QID PRN Laxative (Sennosides) 25 Mg Tablet 50 Mg PO HS TAKES 2 (25 MG) TABLETS Colace (Docusate Sodium) 100 Mg Capsule 200 Mg PO BID TAKES 2 (100 MG) CAPSULES Daily Multiple Vitamin (Multivitamin) 1 Each Tablet 1 Tab PO DAILY Amlodipine Besylate 10 Mg Tablet 10 Mg PO DAILY Atorvastatin Calcium 40 Mg Tablet 40 Mg PO DAILY Levothyroxine Sodium 125 Mcg Tablet 125 Mcg PO DAILY Paroxetine HCl 30 Mg Tablet 30 Mg PO DAILY Instructions to patient/family Please see electronic discharge instructions given to patient. Clinical Quality Measures DVT/VTE Risk/Contraindication: Risk Factor Score Per Nursin RFS Level Per Nursing on Admit: 2=Moderate Problem Qualifiers (1) Aspiration pneumonia: Aspiration pneumonia type: due to regurgitated food ROLDAN DOTSON DO Jul 04, 2017 10:45
[2017-07-04] MEDS: LEVOFLOXACIN 750 MG TAB (LEVAQUIN) PO SCH (11:24)
[2017-07-04] MEDS: ENOXAPARIN 40 MG/0.4 ML (LOVENOX) SYR SC SCH (11:58)
== END 2017-07-04 11:50 | disposition home health service (06) | DRG 178 ==
LOC: ICU 00:30 → 4TH 07-01 14:13
PROVIDERS: ADMIT Family Medicine; ATTEND Family Medicine
DX: J69.0 Pneumonitis due to inhalation of food and vomit (principal); J20.9 Acute bronchitis, unspecified; R09.02 Hypoxemia; D62 Acute posthemorrhagic anemia; I10 Essential (primary) hypertension; E11.9 Type 2 diabetes mellitus without complications; E78.00 Pure hypercholesterolemia, unspecified; K21.9 Gastro-esophageal reflux disease without esophagitis; K59.09 Other constipation; E03.9 Hypothyroidism, unspecified; F41.9 Anxiety disorder, unspecified; F32.9 Major depressive disorder, single episode, unspecified; M81.0 Age-related osteoporosis without current pathological fracture; M19.91 Primary osteoarthritis, unspecified site; K57.90 Diverticulosis of intestine, part unspecified, without perforation or abscess without bleeding; Z86.010 Personal history of colon polyps; Z96.641 Presence of right artificial hip joint; Z85.818 Personal history of malignant neoplasm of other sites of lip, oral cavity, and pharynx; Z85.828 Personal history of other malignant neoplasm of skin; Z92.21 Personal history of antineoplastic chemotherapy; Z92.3 Personal history of irradiation
CPT/HCPCS: 36415; 71010; 71020; 80048; 80053; 82805; 82962; 83735; 83880; 84100; 84145; 84484; 85025; 86850; 86900; 86901; 86920; 87040; 87070; 87081; 87205; 93005; 94640; 94660; 94760; 94761